=== PATIENT | male | born 1965 | race Caucasian/White ===

== ENCOUNTER 2021-02-01 09:53 | Inpatient (IN) | payer OTHER, SELFPAY ==
[2021-02-01] VITALS (22 sets, daily range): BP systolic 115–134; BP diastolic 77–103; PULSE 86–103; RESP 18–31; TEMP 36.2–36.9; O2SAT 88–100; BMI 16.7
--- NOTE | ~2021-02-01 | XR_ITS ---
EXAMINATION: XR chest 1V portable DATE: 02/04/2021 05:31 INDICATION: Shortness of breath. TECHNIQUE: A single frontal view of the chest was obtained. COMPARISON: Chest 2 views 02/01/2021, CT abdomen and pelvis 05/31/2018 FINDINGS: The lungs are hyperexpanded, consistent with emphysema. No pleural effusion or pneumothorax . The heart size is normal. IMPRESSION: 1. Emphysema. Reviewed, dictated and finalized at location A. IMPRESSION: 1. Emphysema.
--- NOTE | ~2021-02-01 | XR_ITS ---
EXAMINATION: XR chest 2V EXAM DATE: 02/01/2021 10:57 INDICATION: Shortness of breath. TECHNIQUE: Frontal and lateral projections of the chest obtained and reviewed. Comparison is made to prior examination from 03/07/2019. FINDINGS: The lungs are hyperinflated which can be seen with chronic obstructive pulmonary disease ( a clinical diagnosis of functional impairment), but is not diagnostic of it. No confluent consolidati on, pneumothorax or pleural effusion suspected. Narrow cardiac silhouette from the hyperinflated lung s. There are no osseous abnormalities identified. IMPRESSION: Hyperinflation. Reviewed, dictated and finalized at location A. IMPRESSION: Hyperinflation.
--- NOTE | 2021-02-01 10:03 | ECG_ITS ---
Measurements Intervals [place] Rate: 93 P: 78 TX: 135 QRS: 77 QRSD: 97 T: 61 QT: 363 QTc: 453 Interpretive Statements SINUS RHYTHM WITH SINUS ARRHYTHMIA BASELINE ARTIFACT- I, II, III NORMAL ECG Electronically Signed On 02-01-2021 13:09:14 CDT by Ever Kent D.O.
[2021-02-01 10:13] LABS: Basophils Percent Auto 0.2 % (0.2-1.2); Eosinophils Absolute Auto 0.1 K/mm3 (0-0.3); Eosinophils Percent Auto 0.5 % (0-4.4); Hematocrit 44.3 % (42.0-52.0); Hemoglobin 14.4 g/dL (14.0-18.0); Immature Granulocyte Absolute 0.05 K/mm3 (0.00-0.031); Immature Granulocyte Percent A 0.4 % (0-0.5); Lymphocytes Absolute Auto 1.11 K/mm3 (0.9-3.2); Lymphocytes Percent Auto 8.4 % (18.3-44.2); Mean Corpuscular HGB Conc 32.5 g/dl (32-36); Mean Corpuscular Hemoglobin 30.9 pg (26-34); Mean Corpuscular Volume 95.1 fl (80-100); Mean Platelet Volume 9.6 fl (7.4-10.4); Monocytes Percent Auto 7.8 % (2.6-8.5); Neutrophils Percent Auto 82.7 % (45.5-73.1); Platelet Count Result 303 k/mm3 (150-375); Red Blood Count 4.66 M/mm3 (4.6-6.20); Red Cell Distribution Width 11.7 % (11.5-14.5); White Blood Count 13.3 K/mm3 (4.5-10.0)
[2021-02-01 10:23] LABS: Blood Urea Nitrogen 10 mg/dL (9-20); Calcium 9.3 mg/dL (8.4-10.2); Carbon Dioxide > 40 mmol/L (22-30); Chloride 92 mmol/L (98-107); Estimated CRCL calculation 102 ml/min; Estimated Glomerular Filt Rate > 60; Glucose 126 mg/dL (75-110); Sodium 136 mmol/L (137-145)
[2021-02-01] MEDS: IPRATROPIUM BR 0.02% INH SOLN 0.5 MG/2.5 ML VIAL 1 MG INHALATION (10:25)
[2021-02-01] MEDS: ALBUTEROL SULFATE NEB 2.5 MG/0.5 ML INH 20 MG INHALATION (10:25)
[2021-02-01 10:32] LABS: Alveolar/Arterial O2 Gradient 31.1 mmHg; Base Excess ABG 5.6 mEq/l (+/-2.0); Carboxyhemoglobin 1.3 % THb (0-2.0); Fractional Inspired Oxygen 21 %; HCO3 ABG 31.5 mEq/l (22.0-26.0); Methemoglobin ABG 0.2 %THb (0-1.5); Oxygen Content ABG 18.1 %vol (16.0-22.0); Oxygen Saturation ABG 90.2 % (95.0-100.0); Oxyhemoglobin 88.9 % THb (90.0-100.0); PCO2 ABG 50.5 mmHg (35.0-45.0); PO2 ABG 58.2 mmHg (80.0-100.0); PO2 FiO2 Ratio Arterial Blood 2.77 %; Reduced Hemoglobin 9.6 %THb (0-5.0); Total Hemoglobin 14.5 g/dL (12.0-18.0); pH ABG 7.413 (7.350-7.450)
[2021-02-01 10:33] LABS: Device ROOM AIR; Site Drawn RIGHT BRACHIAL
--- NOTE | 2021-02-01 10:47 | ED.GENADULT ---
HPI - General Adult General Chief complaint: Shortness of Breath/Dyspnea <RAMA Singh Last Filed: 02/01/21 12:02> Stated complaint: shortness of breath <RAMA Singh Last Filed: 02/01/21 12:02> Time Seen by Provider: 02/01/21 09:57 <RAMA Singh Last Filed: 02/01/21 12:02> Source: patient and RN notes reviewed <RAMA Singh Last Filed: 02/01/21 12:02> Mode of arrival: ambulatory <RAMA Singh Last Filed: 02/01/21 12:02> Limitations: no limitations <RAMA Singh Last Filed: 02/01/21 12:02> History of Present Illness HPI narrative: Patient is a 55-year-old male who presents with shortness of breath that has been present now for the last 2 weeks and has worsened in the last 2 days patient notes history of COPD with his only medication as a rescue inhaler has not seen his primary care doctor in over a year patient notes that he has been working at his house doing some renovating and believes he may have got exposed to some allergens. Patient with longstanding history of tobacco abuse. Patient notes he has fatigue and weakness with activity and becomes very short of breath quickly. Patient on arrival to emergency department is nontoxic-appearing does present hypoxic with an O2 saturation of 88% on room air. Patient notes he has had similar occurrences in the past related to his COPD. Patient notes he has had some green phlegm over the last 2 days but denies other URI symptoms <RAMA Singh Last Filed: 02/01/21 12:02> Related Data Allergies/adverse reactions: Allergies Allergy/AdvReac Type Severity Reaction Status Date / Time No Known Allergies Allergy Unverified 05/16/19 12:30 <RAMA Singh Last Filed: 02/01/21 12:02> Review of Systems Review of Systems: All systems reviewed & are unremarkable except as noted in HPI and below <RAMA Singh Last Filed: 02/01/21 12:02> [facility] Past Medical History Medical History: Medical History (Updated 02/01/21 @ 12:02 by Isaias Solitario PA-C) COPD (chronic obstructive pulmonary disease) <Isaias Solitario PA-C - Last Filed: 02/01/21 12:02> Family History Family History: Family History (Updated 02/07/17 @ 11:36 by DOCTOR UNKNOWN) Mother Diabetes mellitus Patient's mother is in good health Father Patient's father is in good health Sibling Patient's sister is in good health <Isaias Solitario PA-C - Last Filed: 02/01/21 12:02> Social History Social History: Social History (Updated 02/01/21 @ 11:22 by Isaias Solitario PA-C) Smoking status: Current every day smoker Smoking end date: 09/17/15 Alcohol intake: current <Isaias Solitario PA-C - Last Filed: 02/01/21 12:02> Exam Narrative: Exam Narrative: GENERAL: Well-appearing, well-nourished, and in no acute distress. HEAD: Normocephalic, atraumatic. EYES: PERRLA and EOMI. ENT: Nares clear, no rhinorrhea or epistaxis. Mucous membranes moist. CHEST: Diminished on auscultation. No respiratory distress. Faint wheezing noted no crackles HEART: Regular rate and rhythm. No murmur heard. Normal peripheral pulses. ABDOMEN: Soft, nontender, nondistended EXTREMITIES: Normal range of motion. No edema. SKIN: Warm, dry, no rash. NEURO: No focal deficits. Alert and oriented x3. Cranial nerves II through XII grossly intact PSYCH: Normal mood and affect. <Isaias Solitario PA-C - Last Filed: 02/01/21 12:02> Course Course Emergency Course: Patient presented with COPD exacerbation patient with no pneumonia seen on exam patient was given continuous updraft treatment is resting in the room denying any pain he still is around 92% on 2 L nasal cannula. Patient will be brought into the hospital for COPD exacerbation has been given steroids and IV antibiotics per recommendation and request of hospitalist service who will be managing the patient. Annalise
[2021-02-01 10:54] LABS: Lactic Acid Reflex 1.1 mmol/L (0.7-2.1)
[2021-02-01] MEDS: MAGNESIUM SULF 2 GM/WATER 50ML 2 GM/50 ML BAG IVPB (10:58)
[2021-02-01] MEDS: methylPREDNISolone SOD SUCC 125 MG VIAL 80 MG IV PUSH ×2 (11:32→11:40)
[2021-02-01 12:06] LABS: Alveolar/Arterial O2 Gradient 66.4 mmHg; Base Excess ABG 5.2 mEq/l (+/-2.0); Carboxyhemoglobin 0.9 % THb (0-2.0); Fractional Inspired Oxygen 28 %; HCO3 ABG 32.1 mEq/l (22.0-26.0); Methemoglobin ABG 0.3 %THb (0-1.5); Modified Allen's Test Pass; Oxygen Content ABG 17.9 %vol (16.0-22.0); Oxygen Saturation ABG 92.2 % (95.0-100.0); Oxyhemoglobin 91.4 % THb (90.0-100.0); PCO2 ABG 56.7 mmHg (35.0-45.0); PO2 ABG 66.3 mmHg (80.0-100.0); PO2 FiO2 Ratio Arterial Blood 2.37 %; Reduced Hemoglobin 7.4 %THb (0-5.0); Site Drawn LEFT RADIAL; Total Hemoglobin 13.9 g/dL (12.0-18.0); pH ABG 7.371 (7.350-7.450)
[2021-02-01 12:07] LABS: Device NASAL CANNULA
--- NOTE | 2021-02-01 13:44 | ADMIMU ---
This patient, Nelson Graff, was admitted to IMU status, and placed in Intensive Care Unit-11. Patient/family oriented to hospital policies and general routines including ID bracelet, bed and alarms, visiting hours, pain management, procedures, bathroom and other care routines, personal items, smoking policy, room service/diet, and visiting hours. Valuables list has been completed. Information on how to activate the Rapid Response Team has been discussed. Patient/Family are encouraged to report perceived risks to care and to ask questions if they do not understand what they are told or what they should do.
[2021-02-01] MEDS: LACTATED RINGERS 1,000 ML 80 ML IV CONT (13:52)
--- NOTE | 2021-02-01 15:00 | PM.IMHP ---
H&P: HPI History of Present Illness Date/Time: 02/01/21 15:00 Chief Complaint: Shortness of breath. Narrative: This is a 55-year-old male with asthma, bronchitis, and history of tobacco abuse who presented to the emergency department earlier today via private vehicle from home with complaints of shortness of breath. Over the past year or so he has noticed increasing shortness of breath and has heavily cut back on his smoking and has stop smoking marijuana altogether. His shortness of breath has gotten worse over the last 2 weeks and for the past 2 days he has hardly been able to do any activity, and is getting short of breath even when moving around in a chair. He has a chronic cough but it has since become productive of greenish-yellow sputum. On arrival his SpO2 was 88% on room air and an ABG revealed mild hypoxemia and hypercarbia. Chest x-ray showed hyperinflation is noted that pulmonary function testing in April 2017 demonstrated findings of obstructive lung disease with good bronchodilator response. He reports feeling somewhat better with systemic steroids and nebulizers. With further questioning he has been living in his father's old house and has been trying to remodel that due to the presence of mold. He has been using just a generalized face mask when working in the home and he is wondering if that may be causing issues. He denies fever, chills, sweats, chest pain, pleuritic pain, orthopnea, PND, lower extremity edema, nausea, vomiting, and diarrhea. Review of Systems Review of Systems: Narrative: Twelve systems were reviewed with pertinent positives and negatives as per HPI. No cold or flu symptoms. He denies known exposure to those positive for COVID-19. He has not been vaccinated for COVID. No history of cardiac disease. He denies dysphagia and concerns for aspiration. Weight has remained stable. Except as documented, all other systems were reviewed and are negative. [facility] Past Medical History Medical History (Updated 02/01/21 @ 23:21 by Vaishnavi Mock PA-C) Asthma Chronic obstructive pulmonary disease Methamphetamine use Tobacco abuse Surgical History Surgical History History of tonsillectomy Family History Family History Mother Diabetes mellitus Patient's mother is in good health Cerebrovascular accident Father Patient's father is in good health Dementia Sibling Patient's sister is in good health Social History Social History (Updated 02/01/21 @ 23:19 by Vaishnavi Mock PA-C) Social History: The patient lives in his father's old home in [place]. He smoked up to a pack of cigarettes per day for about 40 years and is now down to a pack a week. Formally smoked marijuana. On occasion he will snort methamphetamines and lasted so several days ago ?to keep myself motivated.? He drinks 15 cans of beer a week. He designates his sister, Madison Messina, as his surrogate decision maker. He wishes to be a full code. Meds Home Medications and Allergies Home Medications Medication Instructions Recorded Confirmed Type albuterol sulfate 1 - 2 puff INHALATION Q4H PRN 02/01/21 02/01/21 History Allergies Allergy/AdvReac Type Severity Reaction Status Date / Time No Known Allergies Allergy Unverified 05/16/19 12:30 Vital Signs Vital Signs - 24 hr 02/01/21 09:59 02/01/21 10:02 02/01/21 10:03 Temperature 98.0 F Pulse Rate 98 103 H Respiratory Rate 24 H Blood Pressure 131/103 H Pulse Oximetry 88 L 97 02/01/21 10:25 02/01/21 10:35 02/01/21 11:23 Temperature Pulse Rate 97 90 93 Respiratory Rate 20 27 H 24 H Blood Pressure 127/84 Pulse Oximetry 100 02/01/21 11:42 02/01/21 12:04 02/01/21 12:50 Temperature Pulse Rate 102 H 101 H 91 Respiratory Rate 26 H 19 22 H Blood Pressure 128/82 115/77 133/84 Pulse Oximetry 88 L 98 96
[2021-02-01] MEDS: IPRATROPIUM BR 0.02% INH SOLN 0.5 MG/2.5 ML VIAL INHALATION ×2 (15:10→20:16)
[2021-02-01] MEDS: ALBUTEROL SULFATE NEB 2.5 MG/0.5 ML INH 5 MG INHALATION ×2 (15:10→20:16)
[2021-02-01 15:20] LABS: Alanine Aminotransferase 19 U/L (4-50); Albumin Level 3.9 g/dL (3.5-5.1); Alkaline Phosphatase 102 U/L (38-126); Aspartate Amino Transferase 20 U/L (17-59); Bilirubin,Total 0.1 mg/dL (0.2-1.3); Magnesium 2.5 mg/dL (1.6-2.3)
[2021-02-01 15:26] LABS: CRP 26.1 mg/dL (<1.0)
[2021-02-01 15:28] LABS: Procalcitonin 0.1 ng/mL
[2021-02-01] MEDS: guaiFENesin 12 HR 600 MG TABCR PO ×2 (16:32→21:25)
[2021-02-01] MEDS: methylPREDNISolone SOD SUCC 125 MG VIAL 60 MG IV PUSH (17:45)
[2021-02-01 20:07] LABS: SARS-CoV-2 RNA PCR Negative
[2021-02-01 21:18] LABS: Hemoglobin A1C 6.5 % (<5.7)
[2021-02-02] VITALS (20 sets, daily range): BP systolic 120–151; BP diastolic 64–87; PULSE 88–122; RESP 18–22; TEMP 36.4–37.1; O2SAT 91–96; BMI 16.5
[2021-02-02] MEDS: methylPREDNISolone SOD SUCC 125 MG VIAL 60 MG IV PUSH ×4 (00:03→20:47)
[2021-02-02] MEDS: LACTATED RINGERS 1,000 ML 80 ML IV CONT ×2 (00:04→13:38)
[2021-02-02] MEDS: IPRATROPIUM BR 0.02% INH SOLN 0.5 MG/2.5 ML VIAL INHALATION ×4 (01:37→19:59)
[2021-02-02] MEDS: ALBUTEROL SULFATE NEB 2.5 MG/0.5 ML INH 5 MG INHALATION ×4 (01:37→19:59)
--- NOTE | 2021-02-02 02:20 | PC.NURSE ---
0201 Report called to YESSY Wilson.
--- NOTE | 2021-02-02 02:20 | PC.NURSE ---
0215 Transferred to IMU room 202 with all belongings.
--- NOTE | 2021-02-02 02:34 | PC.NURSE ---
This patient, Nelson Graff, was received from ICU-11 on 02/02/21 at 0234. Pt and belongings placed in IMU room 202. Patient/family oriented to unit policies and routines
[2021-02-02 05:29] LABS: Hemoglobin 12.7 g/dL (14.0-18.0); Mean Corpuscular HGB Conc 33.4 g/dl (32-36); Mean Corpuscular Hemoglobin 30.8 pg (26-34); Mean Corpuscular Volume 92.2 fl (80-100); Mean Platelet Volume 9.9 fl (7.4-10.4); Platelet Count Result 312 k/mm3 (150-375); Red Blood Count 4.12 M/mm3 (4.6-6.20); Red Cell Distribution Width 11.8 % (11.5-14.5); White Blood Count 13.8 K/mm3 (4.5-10.0)
[2021-02-02 05:41] LABS: Anion Gap 5 mmol/L (8-16); Blood Urea Nitrogen 9 mg/dL (9-20); Calcium 9.2 mg/dL (8.4-10.2); Carbon Dioxide 35 mmol/L (22-30); Chloride 96 mmol/L (98-107); Estimated CRCL calculation 79 ml/min; Estimated Glomerular Filt Rate > 60; Glucose 175 mg/dL (75-110); Potassium 3.7 mmol/L (3.4-5.0); Sodium 136 mmol/L (137-145)
[2021-02-02] MEDS: guaiFENesin 12 HR 600 MG TABCR PO ×2 (09:42→20:41)
[2021-02-02] MEDS: ENOXAPARIN 40 MG/0.4 ML SYRINGE SUB-Q (09:42)
--- NOTE | 2021-02-02 12:17 | PCNSR ---
On 02/02/21, the student, Vivi Lopez, provided care and completed [facility] documentation on this patient. I have reviewed the student's documentation and agree with the findings.
--- NOTE | 2021-02-02 13:50 | PM.IMPN ---
Progress Note: A&P Assessment and Plan (1) Acute exacerbation of chronic obstructive pulmonary disease: Code(s): J44.1 - Chronic obstructive pulmonary disease with (acute) exacerbation Status: Acute Assessment and Plan: Patient is a smoker WBC elevated at 13.8 Increased in sputum production Chest xray shows hyperinflation Doxycycline 100mg Q12hr Solumedrol 60mg IV Q6hr Neb treatments Mucinex 600mg PO Q12hr Symbicort 2 puff Q12hr Trend WBC Sputum and blood cultures pending. Adjust antibiotics as needed Supplemental oxygen Maintain saturations above 88% Ok to move out of IMU (2) Respiratory failure with hypoxia and hypercapnia: Code(s): J96.91 - Respiratory failure, unspecified with hypoxia; J96.92 - Respiratory failure, unspecified with hypercapnia Status: Acute Assessment and Plan: See above (3) Asthma: Qualifiers: Asthma severity: unspecified severity Asthma persistence: persistent Asthma complication type: uncomplicated Qualified Code(s): J45.909 - Unspecified asthma, uncomplicated Code(s): J45.909 - Unspecified asthma, uncomplicated Status: Acute Assessment and Plan: Patient has history of asthma Follow plan above (4) Tobacco abuse: Code(s): Z72.0 - Tobacco use Status: Acute Assessment and Plan: Educated about smoking cessation Patient confirms only smoking 1 Pack per week (5) Malnutrition: Code(s): E46 - Unspecified protein-calorie malnutrition Status: Acute Assessment and Plan: BMI 16.6 Patient is very underweight Supplements ordered. Educate about calorie intake Log Data Technician consult Subjective Date/time seen: 02/02/21 13:50 Patient is a 55-year-old male with past medical history of asthma bronchitis and tobacco use who presented to the emergency department with complaints of shortness of breath. Patient states that he has a chronic cough that can cause him to become lightheaded and short of breath. Patient stated that he has been more short of breath over the last 2 weeks that his cough is getting worse he stated that his cough is productive and his sputum is clear about 3-4 days ago today it is more greenish yellow patient does admit to chronic use of halls cough drops with no relief. Patient also is rehabbing his mother and father's home which some rooms to have mold in, however, he states that he is not in those rooms and that he sleeps in his recliner in the living room. He stated that he is unable to lay flat due to coughing fits. He did express interest in home O2 I explained to him he may need a walk test to evaluate his need for home O2 currently he was on 1 L of oxygen. He also states that he has been using his rescue inhaler more and more lately. He also complains of severe shortness of breath with exertion. Patient denies chest pain abdominal pain, nausea, vomiting, diarrhea, constipation, numbness tingling, weakness, fatigue, syncope or falls. Patient does admit to being his everyday smoker he stated that he has cut back tremendously and smokes about 1 pack per week. Which he says is even less because he will not smoke the whole cigarette. patient also states that he has cut back on drinking as well and has about 1 case of beer per week. plan of care was explained to the patient patient verbalizes understanding all questions were answered. Review of Systems Review of Systems: All systems reviewed & are unremarkable except as noted in HPI and below Exam Const: General: cooperative, healthy appearing, comfortable, no acute distress, well developed, alert, awake and Physically active Nutritional Appearance: malnourished, thin and underweight Orientation/consciousness: patient oriented x3 Limitations: no limitations HENMT: Head: normal to inspection Ears: hearing grossly normal bilaterally and external ears
--- NOTE | 2021-02-02 16:36 | ADMGEN ---
This patient, Nelson Graff, was admitted to 3 [facility] Surg Room 312-01. Patient/family oriented to hospital policies and general routines including ID bracelet, bed and alarms, visiting hours, pain management, procedures, bathroom and other care routines, personal items, smoking policy, room service/diet, and visiting hours. Information on how to activate the Rapid Response Team has been discussed. Patient/Family are encouraged to report perceived risks to care and to ask questions if they do not understand what they are told or what they should do.
[2021-02-03] VITALS (17 sets, daily range): BP systolic 126–137; BP diastolic 75–81; PULSE 67–124; RESP 16–96; TEMP 36.6–37.4; O2SAT 20–96
[2021-02-03] MEDS: methylPREDNISolone SOD SUCC 125 MG VIAL 60 MG IV PUSH ×2 (00:21→06:01)
[2021-02-03] MEDS: IPRATROPIUM BR 0.02% INH SOLN 0.5 MG/2.5 ML VIAL INHALATION ×4 (02:02→20:20)
[2021-02-03] MEDS: ALBUTEROL SULFATE NEB 2.5 MG/0.5 ML INH 5 MG INHALATION ×2 (02:02→07:56)
[2021-02-03 06:29] LABS: Hematocrit 40.3 % (42.0-52.0); Mean Corpuscular HGB Conc 32.3 g/dl (32-36); Mean Corpuscular Hemoglobin 31.3 pg (26-34); Mean Corpuscular Volume 97.1 fl (80-100); Mean Platelet Volume 9.7 fl (7.4-10.4); Platelet Count Result 354 k/mm3 (150-375); Red Blood Count 4.15 M/mm3 (4.6-6.20); White Blood Count 22.6 K/mm3 (4.5-10.0)
[2021-02-03 06:41] LABS: Anion Gap 6 mmol/L (8-16); Blood Urea Nitrogen 11 mg/dL (9-20); Calcium 8.9 mg/dL (8.4-10.2); Carbon Dioxide 34 mmol/L (22-30); Chloride 99 mmol/L (98-107); Estimated CRCL calculation 109 ml/min; Estimated Glomerular Filt Rate > 60; Glucose 145 mg/dL (75-110); Potassium 3.9 mmol/L (3.4-5.0); Sodium 139 mmol/L (137-145)
[2021-02-03] MEDS: guaiFENesin 12 HR 600 MG TABCR PO ×2 (09:46→21:28)
[2021-02-03] MEDS: ENOXAPARIN 40 MG/0.4 ML SYRINGE SUB-Q (09:47)
--- NOTE | 2021-02-03 10:46 | P.PNIM_ITS ---
Progress Note: A&P Assessment and Plan (1) Acute exacerbation of chronic obstructive pulmonary disease: Code(s): J44.1 - Chronic obstructive pulmonary disease with (acute) exacerbation Status: Acute Assessment and Plan: * Patient is a smoker * WBC elevated: went from 13.8 to 22.6 * sputum production better today * Chest xray shows hyperinflation * Doxycycline 100mg Q12hr changed to Ceftriaxone 2g IV q12hr * taper Solumedrol to prednisone 40mg PO Q8hr * Neb treatments change albuterol to Xopenex * Mucinex 600mg PO Q12hr * Symbicort 2 puff Q12hr * Trend WBC * Sputum culture shows haemophilus influenzae and blood cultures show no growth day 2. * Adjust antibiotics as needed * Supplemental oxygen * Maintain saturations above 88% (2) Community acquired bacterial pneumonia: Code(s): J15.9 - Unspecified bacterial pneumonia Status: Acute Assessment and Plan: * See plan above (3) Respiratory failure with hypoxia and hypercapnia: Qualifiers: Chronicity: acute Qualified Code(s): J96.01 - Acute respiratory failure with hypoxia; J96.02 - Acute respiratory failure with hypercapnia Code(s): J96.91 - Respiratory failure, unspecified with hypoxia; J96.92 - Respiratory failure, unspecified with hypercapnia Status: Acute Assessment and Plan: * See above (4) Asthma: Qualifiers: Asthma complication type: uncomplicated Asthma persistence: persistent Asthma severity: unspecified severity Qualified Code(s): J45.909 - Unspecified asthma, uncomplicated Code(s): J45.909 - Unspecified asthma, uncomplicated Status: Acute Assessment and Plan: * Patient has history of asthma * Follow plan above (5) Tobacco abuse: Code(s): Z72.0 - Tobacco use Status: Acute Assessment and Plan: * Educated about smoking cessation * Patient confirms only smoking 1 Pack per week (6) Malnutrition: Qualifiers: Malnutrition type: unspecified type Qualified Code(s): E46 - Unspecified protein-calorie malnutrition Code(s): E46 - Unspecified protein-calorie malnutrition Status: Acute Assessment and Plan: * BMI 16.6 * Patient is very underweight * Supplements ordered. * Educate about calorie intake * Automatic Centrifugal Station Operator consult (7) Tachycardia: Code(s): R00.0 - Tachycardia, unspecified Status: Acute Assessment and Plan: * Heart rate is 130-140 per the monitor * Change albuterol to Xopenex * Trend heart rate * Trend fevers Subjective Date/time seen: 02/03/21 10:46 Patient is a 55-year-old male with past medical history of asthma bronchitis an d tobacco use who presented to the emergency department with complaints of shortness of breath. Patient stated that he feels a whole lot better today when asked about his cough he said he did have A cough. He did state that when he lays flat he will cough and is still producing thick greenish yellow thick sputum. Patient also states he has no complaints of shortness of breath. He has been off supplemental oxygen since yesterday at 3:00 p.m. He also states that he still gets short of breath with some physical activity. Patient denies chest pain abdominal pain, nausea, vomiting, diarrhea, constipation, numbness tingling, weakness, fatigue, syncope or falls. patient expressed interest in possible discha
--- NOTE | 2021-02-03 10:46 | PM.IMPN ---
Progress Note: A&P Assessment and Plan (1) Acute exacerbation of chronic obstructive pulmonary disease: Code(s): J44.1 - Chronic obstructive pulmonary disease with (acute) exacerbation Status: Acute Assessment and Plan: Patient is a smoker WBC elevated: went from 13.8 to 22.6 sputum production better today Chest xray shows hyperinflation Doxycycline 100mg Q12hr changed to Ceftriaxone 2g IV q12hr taper Solumedrol to prednisone 40mg PO Q8hr Neb treatments change albuterol to Xopenex Mucinex 600mg PO Q12hr Symbicort 2 puff Q12hr Trend WBC Sputum culture shows haemophilus influenzae and blood cultures show no growth day 2. Adjust antibiotics as needed Supplemental oxygen Maintain saturations above 88% (2) Community acquired bacterial pneumonia: Code(s): J15.9 - Unspecified bacterial pneumonia Status: Acute Assessment and Plan: See plan above (3) Respiratory failure with hypoxia and hypercapnia: Qualifiers: Chronicity: acute Qualified Code(s): J96.01 - Acute respiratory failure with hypoxia; J96.02 - Acute respiratory failure with hypercapnia Code(s): J96.91 - Respiratory failure, unspecified with hypoxia; J96.92 - Respiratory failure, unspecified with hypercapnia Status: Acute Assessment and Plan: See above (4) Asthma: Qualifiers: Asthma complication type: uncomplicated Asthma persistence: persistent Asthma severity: unspecified severity Qualified Code(s): J45.909 - Unspecified asthma, uncomplicated Code(s): J45.909 - Unspecified asthma, uncomplicated Status: Acute Assessment and Plan: Patient has history of asthma Follow plan above (5) Tobacco abuse: Code(s): Z72.0 - Tobacco use Status: Acute Assessment and Plan: Educated about smoking cessation Patient confirms only smoking 1 Pack per week (6) Malnutrition: Qualifiers: Malnutrition type: unspecified type Qualified Code(s): E46 - Unspecified protein-calorie malnutrition Code(s): E46 - Unspecified protein-calorie malnutrition Status: Acute Assessment and Plan: BMI 16.6 Patient is very underweight Supplements ordered. Educate about calorie intake Home Health Care Physician consult (7) Tachycardia: Code(s): R00.0 - Tachycardia, unspecified Status: Acute Assessment and Plan: Heart rate is 130-140 per the monitor Change albuterol to Xopenex Trend heart rate Trend fevers Subjective Date/time seen: 02/03/21 10:46 Patient is a 55-year-old male with past medical history of asthma bronchitis and tobacco use who presented to the emergency department with complaints of shortness of breath. Patient stated that he feels a whole lot better today when asked about his cough he said he did have A cough. He did state that when he lays flat he will cough and is still producing thick greenish yellow thick sputum. Patient also states he has no complaints of shortness of breath. He has been off supplemental oxygen since yesterday at 3:00 p.m. He also states that he still gets short of breath with some physical activity. Patient denies chest pain abdominal pain, nausea, vomiting, diarrhea, constipation, numbness tingling, weakness, fatigue, syncope or falls. patient expressed interest in possible discharge. Explained to patient that he is still on high dose of IV steroids and is currently receiving IV antibiotics. Will reassess him in the morning for possibility of discharge however antibiotics to be converted to p.o. and steroids need to be decreased. Heart monitor does show patient in the 130s 140s. Pulses are bounding bilaterally and palpable heart rate was calculated to be around 100. white blood cell count went from 13.8-22.6 overnight. Sputum culture show haemophilus influenzae, changed antibiotics from doxycylin
[2021-02-03] MEDS: predniSONE 20 MG TABLET 40 MG PO ×2 (14:44→21:28)
[2021-02-03] MEDS: ACETAMINOPHEN 325 MG TABLET 650 MG PO (21:33)
[2021-02-04] VITALS (9 sets, daily range): BP systolic 134; BP diastolic 84; PULSE 90–117; RESP 18–20; TEMP 36.8; O2SAT 97–98
[2021-02-04] MEDS: IPRATROPIUM BR 0.02% INH SOLN 0.5 MG/2.5 ML VIAL INHALATION ×2 (02:32→08:05)
[2021-02-04] MEDS: predniSONE 20 MG TABLET 40 MG PO (06:06)
[2021-02-04] MEDS: ACETAMINOPHEN 325 MG TABLET 650 MG PO (06:09)
[2021-02-04 06:35] LABS: Hematocrit 40.9 % (42.0-52.0); Hemoglobin 12.9 g/dL (14.0-18.0); Mean Corpuscular HGB Conc 31.5 g/dl (32-36); Mean Corpuscular Hemoglobin 30.7 pg (26-34); Mean Corpuscular Volume 97.4 fl (80-100); Mean Platelet Volume 9.5 fl (7.4-10.4); Platelet Count Result 347 k/mm3 (150-375); Red Cell Distribution Width 12.2 % (11.5-14.5); White Blood Count 19.3 K/mm3 (4.5-10.0)
[2021-02-04 06:45] LABS: Anion Gap 6 mmol/L (8-16); Blood Urea Nitrogen 11 mg/dL (9-20); Calcium 8.9 mg/dL (8.4-10.2); Carbon Dioxide 34 mmol/L (22-30); Chloride 99 mmol/L (98-107); Estimated CRCL calculation 88 ml/min; Estimated Glomerular Filt Rate > 60; Glucose 119 mg/dL (75-110); Potassium 4.1 mmol/L (3.4-5.0); Sodium 139 mmol/L (137-145)
[2021-02-04] MEDS: ENOXAPARIN 40 MG/0.4 ML SYRINGE SUB-Q (08:50)
[2021-02-04] MEDS: guaiFENesin 12 HR 600 MG TABCR PO (08:51)
--- NOTE | 2021-02-04 10:19 | P.DS_ITS ---
DS: Admitting Diagnosis Admitting Diagnosis Admitting Diagnosis: COPD exacerbation Community acquired pneumonia DS: Discharge Diagnosis Discharge Diagnosis (1) Acute exacerbation of chronic obstructive pulmonary disease: Code(s): J44.1 - Chronic obstructive pulmonary disease with (acute) exacerbation Status: Acute Assessment and Plan: * Patient is a smoker * WBC trending down went from 22.6 to 19.3 * sputum production better today * Chest xray shows Emphysema * Ceftriaxone 2g IV q12hr given this am will send patient home on Amoxicillin clavulanic and azithromycin * taper Solumedrol to prednisone 40mg PO Q8hr will send home with a taper pack * Neb treatments change albuterol to Xopenex, will send with albuterol inhaler * Mucinex 600mg PO Q12hr * Symbicort 2 puff Q12hr * Trend WBC * Sputum culture shows haemophilus influenzae and blood cultures show no growth day 2. * Adjust antibiotics as needed * Supplemental oxygen * Maintain saturations above 88% (2) Community acquired bacterial pneumonia: Code(s): J15.9 - Unspecified bacterial pneumonia Status: Acute Assessment and Plan: * See plan above (3) Respiratory failure with hypoxia and hypercapnia: Qualifiers: Chronicity: acute Qualified Code(s): J96.01 - Acute respiratory failure with hypoxia; J96.02 - Acute respiratory failure with hypercapnia Code(s): J96.91 - Respiratory failure, unspecified with hypoxia; J96.92 - Respiratory failure, unspecified with hypercapnia Status: Acute Assessment and Plan: * See above (4) Asthma: Qualifiers: Asthma complication type: uncomplicated Asthma persistence: persistent Asthma severity: unspecified severity Qualified Code(s): J45.909 - Unspecified asthma, uncomplicated Code(s): J45.909 - Unspecified asthma, uncomplicated Status: Acute Assessment and Plan: * Patient has history of asthma * Follow plan above (5) Tobacco abuse: Code(s): Z72.0 - Tobacco use Status: Acute Assessment and Plan: * Educated about smoking cessation * Patient confirms only smoking 1 Pack per week (6) Malnutrition: Qualifiers: Malnutrition type: unspecified type Qualified Code(s): E46 - Unspecifi ed protein-calorie malnutrition Code(s): E46 - Unspecified protein-calorie malnutrition Status: Acute Assessment and Plan: * BMI 16.6 * Patient is very underweight * Supplements ordered. * Educate about calorie intake * Mounted Police Officer consult (7) Tachycardia: Code(s): R00.0 - Tachycardia, unspecified Status: Acute Assessment and Plan: * Heart rate better at 100-105 * Change albuterol to Xopenex * Trend heart rate * Trend fevers DS: Summary Hospital Course Hospital Course: Patient is a 55-year-old male with past medical history of asthma bronchitis and tobacco use who presented to the emergency department with complaints of shortness of breath. Patient was then brought to the IMU with thoughts needing more oxygen. Patient was also started on doxycycline steroids and neb treatments. Antibiotics have been switched to ceftriaxone. Patient has been on room air for the last 48 hours states his cough is better and breathing is better. Patient states that he is anxious to get home and he still gets short of breath with exer
--- NOTE | 2021-02-04 10:19 | PM.DS ---
DS: Admitting Diagnosis Admitting Diagnosis Admitting Diagnosis: COPD exacerbation Community acquired pneumonia DS: Discharge Diagnosis Discharge Diagnosis (1) Acute exacerbation of chronic obstructive pulmonary disease: Code(s): J44.1 - Chronic obstructive pulmonary disease with (acute) exacerbation Status: Acute Assessment and Plan: Patient is a smoker WBC trending down went from 22.6 to 19.3 sputum production better today Chest xray shows Emphysema Ceftriaxone 2g IV q12hr given this am will send patient home on Amoxicillin clavulanic and azithromycin taper Solumedrol to prednisone 40mg PO Q8hr will send home with a taper pack Neb treatments change albuterol to Xopenex, will send with albuterol inhaler Mucinex 600mg PO Q12hr Symbicort 2 puff Q12hr Trend WBC Sputum culture shows haemophilus influenzae and blood cultures show no growth day 2. Adjust antibiotics as needed Supplemental oxygen Maintain saturations above 88% (2) Community acquired bacterial pneumonia: Code(s): J15.9 - Unspecified bacterial pneumonia Status: Acute Assessment and Plan: See plan above (3) Respiratory failure with hypoxia and hypercapnia: Qualifiers: Chronicity: acute Qualified Code(s): J96.01 - Acute respiratory failure with hypoxia; J96.02 - Acute respiratory failure with hypercapnia Code(s): J96.91 - Respiratory failure, unspecified with hypoxia; J96.92 - Respiratory failure, unspecified with hypercapnia Status: Acute Assessment and Plan: See above (4) Asthma: Qualifiers: Asthma complication type: uncomplicated Asthma persistence: persistent Asthma severity: unspecified severity Qualified Code(s): J45.909 - Unspecified asthma, uncomplicated Code(s): J45.909 - Unspecified asthma, uncomplicated Status: Acute Assessment and Plan: Patient has history of asthma Follow plan above (5) Tobacco abuse: Code(s): Z72.0 - Tobacco use Status: Acute Assessment and Plan: Educated about smoking cessation Patient confirms only smoking 1 Pack per week (6) Malnutrition: Qualifiers: Malnutrition type: unspecified type Qualified Code(s): E46 - Unspecified protein-calorie malnutrition Code(s): E46 - Unspecified protein-calorie malnutrition Status: Acute Assessment and Plan: BMI 16.6 Patient is very underweight Supplements ordered. Educate about calorie intake Structural Ironworker consult (7) Tachycardia: Code(s): R00.0 - Tachycardia, unspecified Status: Acute Assessment and Plan: Heart rate better at 100-105 Change albuterol to Xopenex Trend heart rate Trend fevers DS: Summary Hospital Course Hospital Course: Patient is a 55-year-old male with past medical history of asthma bronchitis and tobacco use who presented to the emergency department with complaints of shortness of breath. Patient was then brought to the IMU with thoughts needing more oxygen. Patient was also started on doxycycline steroids and neb treatments. Antibiotics have been switched to ceftriaxone. Patient has been on room air for the last 48 hours states his cough is better and breathing is better. Patient states that he is anxious to get home and he still gets short of breath with exertion however claims that to be normal. Heart rate according to the monitor is better at 1:01 a.m. patient is in sinus rhythm blood pressures are stable. patient denies pain however states that he has carpal tunnel issues in bilateral hands. White blood cell count has been as high as 22.6 by this admission however is trending down at 19.3 today. Patient denies chest pain abdominal pain, nausea, vomiting, diarrhea, constipation, numbness tingling, weakness, fatigue, syncope or falls. Educated the patient importance of taking all medications
--- NOTE | 2021-02-04 10:28 | PCNFU ---
Nutrition Follow-Up Complete: Inadequate oral intake related to poor food choices as evidenced by a BMI of 16.6 and patient stating he has recently lost 15lbs without trying. Goal:Patient will consume 100% of his meals and supplements. Patient has met current goal. No new goal. Pt current nutrition is Heart Healthy. Last recorded weight is 53.4 kg, up from 51.1 kg. Bowel Motility:+BM reported 02/03 Labs Reviewed:HCt 40.9,Hgb 12.9,Glu 119 Meds Noted:Mucinex,Prednisone,Atrovent Additional Notes: Patient seen today for nutrition follow up. He is currently on a heart healthy diet with Enlive once daily and Frozen Nutritional Treat BID. Oral Intake has been, 100% of meals. NO further nutritional interventions needed. Monitor: Will follow up in 7 days.
== END 2021-02-04 13:03 | disposition home or self-care (01) | DRG 139 ==
LOC: ANHED 12:02 → ANHICU 12:38 → ANHIMU 02-02 02:22 → ANH3MEDSUR 02-02 16:35
PROVIDERS: Emergency Medicine Emergency Medical Services; Physician Assistant; Admitting Provider Family Medicine; Emergency Provider Emergency Medicine; PCP Family Medicine; Visit Provider Nurse Practitioner
DX: J15.9 Unspecified bacterial pneumonia (principal); J44.0 Chronic obstructive pulmonary disease with (acute) lower respiratory infection; J44.1 Chronic obstructive pulmonary disease with (acute) exacerbation; F15.10 Other stimulant abuse, uncomplicated; Z20.822 Contact with and (suspected) exposure to COVID-19; F17.210 Nicotine dependence, cigarettes, uncomplicated; J96.91 Respiratory failure, unspecified with hypoxia; J96.92 Respiratory failure, unspecified with hypercapnia; E46 Unspecified protein-calorie malnutrition; Z68.1 Body mass index [BMI] 19.9 or less, adult; R00.0 Tachycardia, unspecified
CPT/HCPCS: 36415; 36600; 71045; 71046; 80048; 80076; 82375; 82805; 83036; 83050; 83605; 83735; 84145; 85025; 85027; 86140; 87040; 87070; 87077; 87185; 87205; 93005; 94640; 94667; 96361; 96365; 96366; 96367; 96372; 96374; 96375; 96376; 99291; A9270; C9803; G0378; G0379; J0696; J1650; J2930; J3475; J7120; J7512; U0003; U0005

== ENCOUNTER 2023-03-06 11:10 | Outpatient (CLI) | payer OTHER, SELFPAY ==
--- NOTE | ~2023-03-06 | CT_ITS ---
CT Scan of the Chest without Contrast: Clinical Indication: Lung cancer screening, personal history of nicotine dependence Technique: Contiguous sections were acquired throughout the chest without intravenous contrast. Dose reduction technique was used on this scan by utilizing automated exposure control and iterative recon struction technique. The dose-length product (DLP) was 63.89 mGy-cm. Findings: There is no evidence of any significant mediastinal, hilar or axillary lymphadenopathy. The mediastin al soft tissues appear normal. There is no evidence of pleural or pericardial effusion. 4 mm right upper lobe pulmonary nodule noted (axial image 32). Moderate emphysema noted. Images through the upper abdomen reveal no abnormalities. Impression: Lung RADS 2: Benign appearance. 12 month follow-up screening CT advised. Moderate emphysema. Reviewed, dictated and finalized at location . Impression: Lung RADS 2: Benign appearance. 12 month follow-up screening CT advised. Moderate emphysema.
[2023-03-06 12:30] VITALS: PULSE 88; O2SAT 91
[2023-03-06 12:34] VITALS: PULSE 109; O2SAT 86
[2023-03-06 12:35] VITALS: O2SAT 87
[2023-03-06 12:36] VITALS: PULSE 92; O2SAT 91
[2023-03-06 12:45] VITALS: PULSE 89; O2SAT 91
--- NOTE | 2023-03-06 13:47 | HOMEO2EVAL ---
Evaluation was performed at [facility] Home Oxygen Evaluation RC: Home Oxygen (O2) Evaluation Start: 03/06/23 13:44 Freq: Status: Active Protocol: RPE Activity Type Activity Date Activity User E-sign Co-sign Detail Recorded Client Recorded Date Recorded By Document 03/06/23 12:30 CHUCKIE [email or web address] 03/06/23 13:47 CHUCKIE Document 03/06/23 12:34 CHUCKIE [email or web address] 03/06/23 13:47 CHUCKIE Document 03/06/23 12:35 CHUCKIE [email or web address] 03/06/23 13:47 CHUCKIE Document 03/06/23 12:36 CHUCKIE [email or web address] 03/06/23 13:47 CHUCKIE Document 03/06/23 12:45 CHUCKIE [email or web address] 03/06/23 13:47 CHUCKIE 03/06/23 03/06/23 03/06/23 12:30 12:34 12:35 Home O2 Evaluation [Oxygen] -Test Phase Resting Exercise Exercise -Oxygen Delivery Room Air Room Air Nasal Cannula -Oxygen Flow Rate (L/min) 1 [Pulse Oximetry] -Pulse Oximetry (90-100 %) 91 86 L 87 L [Pulse Rate] -Pulse Rate (60-100 beats/min) 88 109 H [Exercise] -Ambulation Distance (feet) -Ambulation Distance (meters) [Comments] -Home Oxygen Evaluation Comments [Charges] -Treatment Charges O2 Evaluation - Outpatient 03/06/23 03/06/23 12:36 12:45 Home O2 Evaluation [Oxygen] -Test Phase Exercise Resting -Oxygen Delivery Nasal Cannula Room Air -Oxygen Flow Rate (L/min) 2 [Pulse Oximetry] -Pulse Oximetry (90-100 %) 91 91 [Pulse Rate] -Pulse Rate (60-100 beats/min) 92 89 [Exercise] -Ambulation Distance (feet) 1,000 -Ambulation Distance (meters) 304.78 [Comments] -Home Oxygen Evaluation Comments PT REQUIRES 2 L HOME O2 WITH EXERTION [Charges] -Treatment Charges
--- NOTE | 2023-03-06 13:47 | PCRCNOTE ---
FAXED HOME O2 EVAL TO [facility]
--- NOTE | 2023-03-08 17:43 | WPDPFTINT ---
PFT Procedure Performed PFT Procedure Performed Spirometry with Pre/Post Bronchodilator Plethysmography (Lung Vol) Diffusing Cap (DLCO) Flow Vol Loop PFT Interpretation DOS: 03/06/2023 REQUESTING: Mary Muhammad [facility] REASON FOR TESTING: history of smoking PULMONARY FUNCTION TESTS Results are reliable and reproducible. Spirometry: Pre bronchodilator FEV1 is 0.83 L, 30%, severely reduced. Pre bronchodilator FVC is 2.72 L, 78%, low end of normal. FEV1 / FVC is 30%, reduced, Consistent with airflow obstruction. After bronchodilator, FEV1 increases to 1.08 L, 30% increase, post bronchodilator FVc is 39%. This is a significant increase. After bronchodilator FVC increases to 3.36 L, 97% predicted, a 23% increase. The FEV1 / FVC ratio is 32%. Lung volumes: Total lung capacity is 8.45 L, 155%, greater than normal, moderate hyperinflation. Residual volume is 5.63 L, 304% predicted, severe air trapping. RV/TLC is increased 67% consistent with air trapping. Airway resistance is increased. Diffusion: DLCO is 8.4, 31% predicted. This is extremely reduced. DLCO/VA is 2.05, 45%, reduced. Flow volume loop: There is coving of the expiratory limb consistent with airflow obstruction. IMPRESSION: this study shows severe obstructive ventilatory impairment with excellent response to bronchodilator, moderate hyperinflation and severe air trapping, severe diffusion impairment which does not correct for alveolar volume. This is consistent with emphysema. Compared to prior study on 03/27/2017 findings are similar however on the previous study, the patient had normal diffusion capacity. On the prior study the FEV1 was 1.30 L, 41% predicted, indicating a greater than expected decrease in flows since prior testing. The FVC was 2.62 L, 62%, now is 2.72 L, 78%. Airflow obstruction was also present, total lung capacity was 8.30 L 142% predicted showing mild increase in hyperinflation, stable air trapping. Leena Norwood MD
== END 2023-03-06 11:11 | disposition home or self-care (01) ==
PROVIDERS: PCP Nurse Practitioner Family; Visit Provider Nurse Practitioner
DX: Z12.2 Encounter for screening for malignant neoplasm of respiratory organs (principal); J44.9 Chronic obstructive pulmonary disease, unspecified; Z87.891 Personal history of nicotine dependence; R94.2 Abnormal results of pulmonary function studies; J43.9 Emphysema, unspecified
CPT/HCPCS: 71271; 94060; 94618; 94726; 94729

== ENCOUNTER 2024-06-18 05:53 | Observation (INO) | payer OTHER, SELFPAY ==
[2024-06-18] VITALS (24 sets, daily range): BP systolic 122–143; BP diastolic 74–103; PULSE 84–117; RESP 20–29; TEMP 37.3; O2SAT 91–100; BMI 16.7
--- NOTE | ~2024-06-18 | CT_ITS ---
EXAMINATION: CT diagnostic chest wo con DATE: 06/18/2024 10:39 INDICATION: Hypoxia eval pna TECHNIQUE: Computed tomography (CT) of the chest was performed without intravenous contrast. Addition al 3D reconstructions utilizing coronal maximum intensity projection (MIP) were performed. Automated exposure control and iterative reconstruction technique were employed. The dose-length product was 14 7.80 mGy-cm. COMPARISON: None FINDINGS: Moderate emphysema. Multiple small centrilobular nodules with tree-in-bud pattern in the right lower lobe consistent with pneumonia. There is some associated bronchial wall thickening along with mucus i mpaction of the right lower lobar and multiple segmental and subsegmental bronchi. Small region of mi ld tree-in-bud opacities in the anteroinferior lingula most consistent with pneumonia with some assoc iated linear discoid atelectasis. Trace right pleural effusion. Heart size is normal. Atherosclerotic coronary artery calcification. No pericardial effusion. Thoracic aorta is normal in caliber. Likely reactive mild right hilar lymphadenopathy. Multiple splenic calcific lesions consistent with old gran ulomatous disease. 2 mm nonobstructing right renal stone. Moderate thoracic spondylosis with mild kyp hosis. IMPRESSION: 1. Right lower lobar pneumonia and trace right pleural effusion with additional small region of pneum onia in the anterior-inferior lingula. Reviewed, dictated and finalized at location A. IMPRESSION: 1. Right lower lobar pneumonia and trace right pleural effusion with additional small region of pneumonia in the anterior-inferior lingula.
--- NOTE | ~2024-06-18 | XR_ITS ---
EXAMINATION: XR chest 2V DATE: 06/18/2024 07:04 INDICATION: Chest pain, shortness of breath and COPD TECHNIQUE: AP and lateral views of the chest were obtained. COMPARISON: Chest radiograph dated 02/04/[address] dated 03/06/2023 FINDINGS: Emphysema with increased lucency and some architectural distortion in the upper lung zones and increa sed retrosternal clear space. There are reticular and subtle airspace opacities in the posterior righ t lower lung zone no pleural effusion or pneumothorax. The cardiomediastinal silhouette is normal. Mi ld to moderate thoracic spondylosis. IMPRESSION: 1. Emphysema with interstitial and subtle airspace opacities in the posterior right lower lung zone s uspicious for pneumonia with differential including mild pulmonary edema. Reviewed, dictated and finalized at location A. IMPRESSION: 1. Emphysema with interstitial and subtle airspace opacities in the posterior r ight lower lung zone suspicious for pneumonia with differential including mild pulmonary edema.
--- NOTE | 2024-06-18 06:00 | ECG_ITS ---
Test Date: 2024-06-18 08:56:00 Measurements Intervals [place] Rate: 101 P: 77 MD: 130 QRS: 73 QRSD: 100 T: 71 QT: 378 QTc: 492 Interpretive Statements SINUS TACHYCARDIA POSSIBLE RIGHT ATRIAL ENLARGEMENT [0.25mV P WAVE] POSSIBLE LEFT ATRIAL ENLARGEMENT [-0.1mV P WAVE IN V1/V2] ABNORMAL ECG Electronically Signed On 06-18-2024 14:00:41 CDT by Mark Hall M.D.
[2024-06-18 06:15] LABS: Basophils Percent Auto 0.2 % (0.2-1.2); Eosinophils Percent Auto 0.3 % (0-4.4); Immature Granulocyte Absolute 0.03 K/mm3 (0.00-0.031); Immature Granulocyte Percent A 0.3 % (0-0.5); Lymphocytes Absolute Auto 0.57 K/mm3 (0.9-3.2); Lymphocytes Percent Auto 6.1 % (18.3-44.2); Mean Corpuscular HGB Conc 31.9 g/dl (32-36); Mean Corpuscular Hemoglobin 31.3 pg (26-34); Mean Corpuscular Volume 97.9 fl (80-100); Mean Platelet Volume 10.7 fl (7.4-10.4); Monocytes Absolute Auto 0.8 K/mm3 (0.1-0.6); Monocytes Percent Auto 8.1 % (2.6-8.5); Platelet Count Result 208 k/mm3 (150-375); Red Cell Distribution Width 12.5 % (11.5-14.5); White Blood Count 9.4 K/mm3 (4.5-10.0)
--- NOTE | 2024-06-18 06:19 | ED.GENADULT ---
HPI - General Adult General Chief complaint: Shortness of Breath/Dyspnea <Mohinder Davison MD - Last Filed: 06/18/24 06:21> Stated complaint: CP, SOB <Mohinder Davison MD - Last Filed: 06/18/24 06:21> Time Seen by Provider: 06/18/24 06:12 <Mohinder Davison MD - Last Filed: 06/18/24 06:21> History of Present Illness HPI narrative: Patient is a 59-year-old gentleman who presents emergency department with chief complaint of chest pain and shortness of breath. The patient reports that he has history of COPD and is supposed to wear oxygen but states that it does not help illness so he just uses a small portable fan to blow in his face to get relief whenever he gets more short of breath. Does patient reports that over the last several days he has been having increased cough has been productive sputum the patient denies fever reports that he has injured ribs before in the past whenever he is coughing patient reports no trauma <Mohinder Davison MD - Last Filed: 06/18/24 06:21> Related Data Home medications: Home Medications Medication Instructions Recorded Confirmed albuterol sulfate 90 mcg/actuation 1 - 2 puff inhalation Q4H PRN 02/01/2118 aerosol inhaler Shortness Of Breath Or Wheezing <Mohinder Davison MD - Last Filed: 06/18/24 06:21> Allergies/adverse reactions: Allergies Allergy/AdvReac Type Severity Reaction Status Date / Time No Known Allergies Allergy Unverified 05/16/19 12:30 <Mohinder Davison MD - Last Filed: 06/18/24 06:21> Review of Systems Review of Systems: A 10 system review of systems was completed on the patient and is negative except for what is stated in the HPI. Nursing and ancillary documentation was reviewed. <Mohinder Davison MD - Last Filed: 06/18/24 06:21> PMFSH Past Medical History Medical History: Medical History Asthma Chronic obstructive pulmonary disease Community acquired bacterial pneumonia Malnutrition Methamphetamine use Tobacco abuse <Mohinder Davison MD - Last Filed: 06/18/24 06:21> Surgical History Surgical History: Surgical History History of tonsillectomy <Mohinder Davison MD - Last Filed: 06/18/24 06:21> Family History Family History: Family History Mother Diabetes mellitus Patient's mother is in good health Cerebrovascular accident Father Patient's father is in good health Dementia Sibling Patient's sister is in good health <Mohinder Davison MD - Last Filed: 06/18/24 06:21> Social History Social History: Social History Social History: The patient lives in his father's old home in [place]. He smoked up to a pack of cigarettes per day for about 40 years and is now down to a pack a week. Formally smoked marijuana. On occasion he will snort methamphetamines and lasted so several days ago ?to keep myself motivated.? He drinks 15 cans of beer a week. He designates his sister, Madison Messina, as his surrogate decision maker. He wishes to be a full code. Spiritual care concerns: No <Mohinder Davison MD - Last Filed: 06/18/24 06:21> Exam Narrative: GENERAL: Well-appearing, well-nourished, and in no acute distress. HEAD: Normocephalic, atraumatic. EYES: PERRLA and EOMI. ENT: Nares clear, no rhinorrhea or epistaxis. Mucous membranes moist. NECK: Supple. CHEST: Clear to auscultation. No respiratory distress. HEART: Regular rate and rhythm. No murmur heard. Normal peripheral pulses. ABDOMEN: Soft, nontender, nondistended, normal active bowel sounds. EXTREMITIES: Normal range of motion. No edema. SKIN: Warm, dry, no rash. NEURO: No focal deficits. A
[2024-06-18] MEDS: ASPIRIN 81 MG CHEWABLE TABLET 324 MG PO (06:24)
[2024-06-18] MEDS: methylPREDNISolone SOD SUCC 125 MG VIAL IV PUSH (06:24)
[2024-06-18 06:25] LABS: INR 1.1; Prothrombin Time 14.5 Seconds (11.1-14.7)
[2024-06-18 06:26] LABS: Partial Thromboplastin Time 34.2 Seconds (22.3-36.8)
[2024-06-18 06:31] LABS: Alanine Aminotransferase 29 U/L (6-50); Albumin Level 4.6 g/dL (3.5-5.1); Alkaline Phosphatase 99 U/L (38-126); Aspartate Amino Transferase 28 U/L (17-59); Bilirubin,Total 0.6 mg/dL (0.2-1.3); Blood Urea Nitrogen 6 mg/dL (9-20); Calcium 8.9 mg/dL (8.4-10.2); Carbon Dioxide > 40 mmol/L (22-30); Chloride 86 mmol/L (98-107); Estimated CRCL calculation 90 ml/min; Estimated Glomerular Filt Rate > 60; Glucose 78 mg/dL (65-110); Lipase 43 U/L (23-300); Potassium 4.1 mmol/L (3.4-5.0); Sodium 132 mmol/L (137-145)
[2024-06-18 06:39] LABS: Troponin I 0.029 ng/mL (0.000-0.034)
[2024-06-18] MEDS: IPRATROPIUM 0.5 MG/ALBUTEROL SULFATE 2.5 MG AMPUL.NEB 3 ML INHALATION ×3 (06:40→20:00)
[2024-06-18 06:46] LABS: Base Excess ABG 7.6 mEq/l (+/-2.0); Fractional Inspired Oxygen 32 %; HCO3 ABG 35.2 mEq/l (22.0-26.0); Oxygen Content ABG 19.2 %vol (16.0-22.0); Oxygen Saturation ABG 96.5 % (95.0-100.0); Oxyhemoglobin 95.1 % THb (90.0-100.0); PO2 FiO2 Ratio Arterial Blood 2.84 %; Total Hemoglobin 14.3 g/dL (12.0-18.0); pH ABG 7.368 (7.350-7.450)
[2024-06-18 06:47] LABS: Lactic Acid Reflex 0.7 mmol/L (0.7-2.0)
[2024-06-18 06:47] LABS: Magnesium 1.9 mg/dL (1.6-2.3)
[2024-06-18 06:49] LABS: Device NASAL CANNULA; Modified Allen's Test Pass; PCO2 ABG 62.5 mmHg (35.0-45.0); Site Drawn RIGHT RADIAL
[2024-06-18 06:56] LABS: NT Pro B Type Natriuretic Pept 3200 pg/mL (19.9-100)
[2024-06-18 07:07] LABS: Procalcitonin 0.1 ng/mL
[2024-06-18 07:10] LABS: Influenza A QL RT-PCR Negative (Negative); Influenza B QL RT-PCR Negative (Negative); RSV RNA, RT-PCR Negative (Negative); SARS-CoV-2 RNA PCR Negative (Negative)
--- NOTE | 2024-06-18 08:51 | ECG_ITS ---
Test Date: 2024-06-18 06:14:35 Measurements Intervals [place] Rate: 104 P: 76 [place]: 140 QRS: 66 QRSD: 96 T: 62 QT: 373 QTc: 491 Interpretive Statements SINUS TACHYCARDIA RIGHT ATRIAL ENLARGEMENT [0.3mV P WAVE] LEFT ATRIAL ENLARGEMENT [-0.15mV P WAVE IN V1/V2] NONSPECIFIC ST ELEVATION [0.05+ mV ST ELEVATION] LEFT VENTRICULAR HYPERTROPHY WITH SECONDARY ST AND T-WAVE ABNORMALITY ABNORMAL ECG No previous ECG available for comparison Electronically Signed On 06-18-2024 13:54:05 CDT by Mark Hall M.D.
[2024-06-18 10:18] LABS: Troponin I 0.016 ng/mL (0.000-0.034)
[2024-06-18] MEDS: DOXYCYCLINE 100 MG/NS 100 ML 100 MG/100 ML BAG IVPB ×2 (11:31→21:25)
--- NOTE | 2024-06-18 14:09 | PC.NURSE ---
This patient, Nelson Graff, was admitted to 3 [facility] Surg Room 323-01. Patient/family oriented to hospital policies and general routines including ID bracelet, bed and alarms, visiting hours, pain management, procedures, bathroom and other care routines, personal items, smoking policy, room service/diet, and visiting hours. Information on how to activate the Rapid Response Team has been discussed. Patient/Family are encouraged to report perceived risks to care and to ask questions if they do not understand what they are told or what they should do.
[2024-06-18 14:38] LABS: Troponin I < 0.012 ng/mL (0.000-0.034)
--- NOTE | 2024-06-18 15:37 | PC.NURSE ---
This RN made MD Benitez aware of pt's down-trending trops, abnormal EKG, BNP of 3200, and 1+ pitting BLE. Per MD, no new orders at this time, will review chart.
--- NOTE | 2024-06-18 16:34 | PM.IMHP ---
H&P: HPI History of Present Illness Date/Time: 06/18/24 16:34 Chief Complaint: Short of breath and productive cough Narrative: 59 years old gentleman with history of COPD, present ED with a chief complaint of productive cough and shortness breath. Patient has been having productive cough in past few more days, with greenish yellow sputum. And patient also has progressive shortness breast in past few days. Patient has chest tightness bilaterally with cough and deep breath. Patient denied headache, focal weakness, vision change, abdomen pain, nausea vomiting diarrhea dysuria fever or chills. Patient has worsening shortness breast today, therefore patient came to ED for evaluation treatment. Upon arrival in the ED, patient was found have tachycardia tachypnea, hypoxemia, patient needs 3 L oxygen in the ED. CBC unremarkable, chemistry showed hyponatremia 132, bicarbonate 40. ABG showed compensated respiratory acidosis, CO2 retention pCO2 62.5. Serial troponin times 3, negative, EKG shows sinus tachycardia mo [address] T-wave changes. CT scan was done in the ED, the showed right lower lobe pneumonia and trace pleural effusion and additional region of pneumonia in the anterior inferior lingula. In the ED, patient received bronchodilator, antibiotics, patient still has dyspnea. We admit patient for further evaluation treatment PMFSH Past Medical History Medical History Asthma Chronic obstructive pulmonary disease Community acquired bacterial pneumonia Malnutrition Methamphetamine use Tobacco abuse Surgical History Surgical History History of tonsillectomy Family History Family History Mother Diabetes mellitus Patient's mother is in good health Cerebrovascular accident Father Patient's father is in good health Dementia Sibling Patient's sister is in good health Social History Social History Social History: The patient lives in his father's old home in [place]. He smoked up to a pack of cigarettes per day for about 40 years and is now down to a pack a week. Formally smoked marijuana. On occasion he will snort methamphetamines and lasted so several days ago ?to keep myself motivated.? He drinks 15 cans of beer a week. He designates his sister, Madison Messina, as his surrogate decision maker. He wishes to be a full code. Smoking status: Current every day smoker Alcohol intake: never Substance use: current Substance use type: methamphetamine Last use: 06/16/2024 Do You Feel Safe in your Home?: Yes Lack of Transportation: No Lack of Food: Never True Current Housing: I Have Housing Concerned About Future Housing: No Difficulty Paying Gas/Electric Bills: No Difficulty Paying for Meds: No Currently Unemployed: No Education: Decline to Answer Difficulty w/ Childcare or Family Care: No Spiritual care concerns: No Meds Home Medications and Allergies Home Medications Medication Instructions Recorded Confirmed Type albuterol sulfate 90 mcg/actuation 2 puff inhalation QID PRN 02/04/21 06/18/24 Rx aerosol inhaler shortness of breath or wheezing #6.7 grams Allergies Allergy/AdvReac Type Severity Reaction Status Date / Time No Known Allergies Allergy Unverified 05/16/19 12:30 Vital Signs Vital Signs - 24 hr 06/18/24 05:56 06/18/24 06:40 06/18/24 06:55 Pulse Rate 102 H 93 89 Respiratory Rate 20 20 20 Blood Pressure 137/103 H Pulse Oximetry 98 Oxygen Delivery Nasal Cannula Oxygen Flow Rate 3 06/18/24 07:01 06/18/24 07:10 06/18/24 07:31 Pulse Rate 100 103 H Respiratory Rate 21 H 27 H Blood Pressure 135/98 H 136/85 Pulse Oximetry 98 100 97 Oxygen Delivery Nasal Cannula Oxygen Flow Ra
[2024-06-18] MEDS: SODIUM CHLORIDE 0.9% IV 1,000 ML 75 ML IV CONT (17:30)
[2024-06-18] MEDS: methylPREDNISolone SOD SUCC 125 MG VIAL 60 MG IV PUSH (17:30)
[2024-06-19] VITALS (15 sets, daily range): BP systolic 119–132; BP diastolic 71–99; PULSE 85–113; RESP 16–24; TEMP 36.2–37.2; O2SAT 87–96; BMI 16.7
[2024-06-19] MEDS: methylPREDNISolone SOD SUCC 125 MG VIAL 60 MG IV PUSH ×4 (00:35→16:26)
[2024-06-19] MEDS: IPRATROPIUM 0.5 MG/ALBUTEROL SULFATE 2.5 MG AMPUL.NEB 3 ML INHALATION ×4 (01:42→20:09)
[2024-06-19 03:33] LABS: Add Urine Microscopic? YES; Appearance Urine Clear (Clear); Bacteria Urine None Seen /hpf; Bilirubin Urine Negative (Negative); Blood Urine Negative (Negative); Color Urine Yellow (Yellow); Glucose Urine UA 2+ mg/dL (Negative); Ketones Urine Negative (Negative); Leukocyte Esterase Ur Negative LEU/UL (Negative); Nitrate Urine Negative (Negative); Non Pathogenic Casts 0-2; Protein Urine 1+ mg/dL (Negative); RBC Urine 0-2 /hpf (0-2); Specific Grav Ur 1.025 (1.001-1.035); Squamous Epithelial Cell Urine None Seen /hpf (Few); WBC Urine 0-5 /hpf (0-3); pH Urine 6.5 (5.0-9.0)
[2024-06-19] MEDS: SODIUM CHLORIDE 0.9% IV 1,000 ML 75 ML IV CONT ×2 (05:42→12:26)
[2024-06-19 08:03] LABS: Anion Gap 4 mmol/L (4-12); Blood Urea Nitrogen 13 mg/dL (9-20); Calcium 8.3 mg/dL (8.4-10.2); Carbon Dioxide 37 mmol/L (22-30); Chloride 93 mmol/L (98-107); Estimated CRCL calculation 74 ml/min; Estimated Glomerular Filt Rate > 60; Glucose 141 mg/dL (65-110); Potassium 4.7 mmol/L (3.4-5.0); Sodium 134 mmol/L (137-145)
[2024-06-19] MEDS: DOXYCYCLINE 100 MG/NS 100 ML 100 MG/100 ML BAG IVPB ×2 (08:49→20:20)
--- NOTE | 2024-06-19 10:10 | PM.IMPN ---
Progress Note: A&P Assessment and Plan (1) Multifocal pneumonia: Code(s): J18.9 - Pneumonia, unspecified organism Status: Acute Assessment and Plan: COPD exacerbation, acute respiratory failure with hypoxemia and hypercapnia, multifocal pneumonia CT shows multiple focal pneumonia, involving right lower lobe pneumonia and additional region of pneumonia in the anterior inferior lingula. Troponin negative x3, EKG shows sinus rhythm no specific ST and T-wave changes Received ceftriaxone and doxycycline in the ED, continue ceftriaxone and doxycycline IV start DuoNeb scheduled q.6 hours and albuterol inhaler 2 puff q.i.d. p.r.n. Received methylprednisolone 125 mg IV push once, continue methylprednisone 60 mg q.6 hours IV Start O2 therapy to keep pulse ox above 92 Elevated BNP 3200 Follow echocardiogram (2) Acute exacerbation of chronic obstructive pulmonary disease: Code(s): J44.1 - Chronic obstructive pulmonary disease with (acute) exacerbation Status: Acute Assessment and Plan: see above (3) Acute respiratory failure with hypercapnia: Code(s): J96.02 - Acute respiratory failure with hypercapnia Status: Acute Assessment and Plan: see above (4) Tobacco abuse: Code(s): Z72.0 - Tobacco use Status: Acute Assessment and Plan: - smoking cessation counseling provided nicotine patch ordered (5) Hyponatremia: Code(s): E87.1 - Hypo-osmolality and hyponatremia Status: Acute Assessment and Plan: Sodium 132 Possible SAH due to COPD exacerbation and pneumonia Switch from L Ringer 125/H to normal saline IV 75 ml/h Follow-up BMP a.m. tomorrow Time Spent With Patient Time with patient: Greater than 35 minutes Subjective Date/time seen: 06/19/24 10:10 Interval history: Short of breath and productive cough Narrative retrieved from H/P: 59 years old gentleman with history of COPD, present ED with a chief complaint of productive cough and shortness breath. Patient has been having productive cough in past few more days, with greenish yellow sputum. And patient also has progressive shortness breast in past few days. Patient has chest tightness bilaterally with cough and deep breath. Patient denied headache, focal weakness, vision change, abdomen pain, nausea vomiting diarrhea dysuria fever or chills. Patient has worsening shortness breast today, therefore patient came to ED for evaluation treatment. Upon arrival in the ED, patient was found have tachycardia tachypnea, hypoxemia, patient needs 3 L oxygen in the ED. CBC unremarkable, chemistry showed hyponatremia 132, bicarbonate 40. ABG showed compensated respiratory acidosis, CO2 retention pCO2 62.5. Serial troponin times 3, negative, EKG shows sinus tachycardia mo [address] T-wave changes. CT scan was done in the ED, the showed right lower lobe pneumonia and trace pleural effusion and additional region of pneumonia in the anterior inferior lingula. In the ED, patient received bronchodilator, antibiotics, patient still has dyspnea. We admit patient for further evaluation treatment 06/19- dietitian consulted fro nutritional supplements. Pt is resting in bed, voicing no complains. Review of Systems Constitutional: Constitutional: Denies chills ENT: Denies nasal congestion Cardiovascular: Cardiovascular: Denies chest pain and Denies diaphoresis Respiratory: Respiratory: Reports chest congestion and Reports cough Gastrointestinal: Gastrointestinal: Denies abdominal pain Genitourinary: Genitourinary: Denies hematuria Exam Narrative: GENERAL: Pleasant, in no acute distress. - EYES: EOMI. Anicteric. - HENT: Moist mucous membranes. Per dental health - LUNGS: Distant breath sound bilaterally, scattered rhonchi, tachypnea - CARDIOVASCULAR: Regular rate and rhythm. No murmur. No JVD. - ABDOMEN: Soft, non-tender and non-distended. No palpable masses. - EXTREMITIES: No ed
--- NOTE | 2024-06-19 13:10 | P.CDI_ITS ---
CDI Query Clarification Request BMI: 16.8 Nutritional Diagnostic Statement: Please refer to the comprehensive nutrition assessment for further information. If you agree with diagnosis of Severe protein calorie malnutrition related to inadequate energy intake as evidenced by reduced po intake greater than 1 month, significant weight loss x 3 months of -12%, and NFPE findings for severe subcutaneous fat loss (cheeks) and severe muscle wasting (congregation, clavicle, thigh). Please specify severity if known: * Mild * Moderate * Severe * Other/Unknown <Vivi Franz RN - Last Filed: 06/19/24 13:11> Clarified Diagnosis Clarified Diagnosis: moderate <Haley Lopez APRN - Last Filed: 06/19/24 14:23>
[2024-06-19] MEDS: ACETAMINOPHEN 325 MG TABLET 650 MG PO (16:25)
--- NOTE | 2024-06-19 17:28 | ECHO_ITS ---
Patient Info Name: Nelson Graff Age: 59 years : 1965 Gender: Male Ht: 66 in Wt: 104 lbs BSA: 1.47 m2 HR: 85 bpm BP: 119 / 71 mmHg Technical Quality: Fair Exam Date: 06/19/2024 10:50 AM Exam Location: Echo Lab Patient Status: Outpatient Admit Date: 06/18/2024 Staff Ordering Physician: Sylvester Pagan MD Automatic Machine Attendant: Gareth Peterson RDCS Attending Provider: Jory Benitez MD Exam Type: CA echo doppler color flow Study Info Indications - Elevated BNP - COPD R06.02 - Shortness of breath Complete two-dimensional, color flow and Doppler transthoracic echocardiogram is performed. Summary 1. Complete two-dimensional, color flow and Doppler transthoracic echocardiogram is performed. 2. The left ventricular size and systolic function is normal. The left ventricular ejection fraction is estimated to be 55-60%. 3. The right ventricle is dilated. The right ventricular systolic function is normal. 4. There is intraventricular septal flattening suggestive of right ventricular pressure overload. Left Ventricle The left ventricular size and systolic function is normal. The left ventricular ejection fraction is estimated to be 55-60%. Right Ventricle The right ventricle is dilated. The right ventricular systolic function is normal. There is intraventricular septal flattening suggestive of right ventricular pressure overload. Left Atria The left atrial size is normal. Right Atria The right atrial size is normal. Aortic Valve The aortic valve is probable trileaflet. There is no aortic stenosis or regurgitation. Pulmonic Valve The pulmonic valve is not well visualized. Mitral Valve The mitral valve is normal. There is trace mitral regurgitation. Tricuspid Valve The tricuspid valve is normal. There is trace tricuspid regurgitation. Pericardium/Pleural Pericardium is normal in appearance with no evidence for significant pericardial effusion. Inferior Vena Cava Normal inferior vena cava with >50% collapse upon inspiration consistent with normal right atrial pressure, 3 mmHg. Left Ventricular Outflow Tract Name Value Normal LVOT 2D LVOT Diameter 2.0 cm LVOT Doppler LVOT Peak Gradient 5 mmHg LVOT Mean Gradient 3 mmHg LVOT VTI 21 cm LVOT VTI/AV VTI Ratio 0.9 LVOT Stroke Volume 63 ml LVOT CO 6.1 l/min LVOT CI 4.1 l/min/m2 Pulmonic Valve Name Value Normal PV Doppler PV Peak Gradient 5 mmHg Mitral Valve Name Value Normal MV Doppler MV Decel [place] 695 cm/
[2024-06-20] VITALS: PULSE 100
[2024-06-20] MEDS: methylPREDNISolone SOD SUCC 125 MG VIAL 60 MG IV PUSH (00:50)
--- NOTE | 2024-06-20 02:24 | PC.NURSE ---
Respiratory reported to bedside and came out of the room stating the patient was upset and wanted to leave AMA. This RN reported to bedside and patient stated this bed is uncomfortable, I cannot lay here anymore, and I am leaving no matter what . This RN educated patient on risks of leaving, and benefits of staying. The patient still requested to leave AMA and signed the paperwork. This RN and security escorted the patient outside to the bench.
--- NOTE | 2024-06-25 07:03 | PM.DS ---
DS: Admitting Diagnosis Discharge Date 06/20/24 Admitting Diagnosis sob DS: Discharge Diagnosis Discharge Diagnosis (1) Multifocal pneumonia: Code(s): J18.9 - Pneumonia, unspecified organism Status: Acute Assessment and Plan: COPD exacerbation, acute respiratory failure with hypoxemia and hypercapnia, multifocal pneumonia CT shows multiple focal pneumonia, involving right lower lobe pneumonia and additional region of pneumonia in the anterior inferior lingula. Troponin negative x3, EKG shows sinus rhythm no specific ST and T-wave changes Received ceftriaxone and doxycycline in the ED, continue ceftriaxone and doxycycline IV start DuoNeb scheduled q.6 hours and albuterol inhaler 2 puff q.i.d. p.r.n. Received methylprednisolone 125 mg IV push once, continue methylprednisone 60 mg q.6 hours IV Start O2 therapy to keep pulse ox above 92 Elevated BNP 3200 Follow echocardiogram (2) Acute exacerbation of chronic obstructive pulmonary disease: Code(s): J44.1 - Chronic obstructive pulmonary disease with (acute) exacerbation Status: Acute Assessment and Plan: see above (3) Acute respiratory failure with hypercapnia: Code(s): J96.02 - Acute respiratory failure with hypercapnia Status: Acute Assessment and Plan: see above (4) Tobacco abuse: Code(s): Z72.0 - Tobacco use Status: Acute Assessment and Plan: - smoking cessation counseling provided nicotine patch ordered (5) Hyponatremia: Code(s): E87.1 - Hypo-osmolality and hyponatremia Status: Acute Assessment and Plan: Sodium 132 Possible SAH due to COPD exacerbation and pneumonia Switch from L Ringer 125/H to normal saline IV 75 ml/h Follow-up BMP a.m. tomorrow DS: Summary Hospital Course Hospital Course: i was not present during the accident or was notified- however- according to nursing note- pt got upset about the comfortably of [place] hospital bed at night and left AMA. He was admitted for pneumonia amd was still undergoign tests as BNP was elevated. He received ceftriaxone and doxycycline in the ED, and we continued ceftriaxone and doxycycline IV WE started DuoNeb scheduled q.6 hours and albuterol inhaler 2 puff q.i.d. p.r.n. Received methylprednisolone 125 mg IV push once, continue methylprednisone 60 mg q.6 hours IV Start O2 therapy to keep pulse ox above 92 Status at Discharge Functional status at discharge: independent ambulation Overall status at discharge: patient is progressing back to baseline Time Spent with Patient Time attestation: Total time spent providing and/or coordinating discharge services: Specific discharge activities: pt needs to f/u with PCP to continue antibiotics and get re assessment Exam Narrative: exam was not completed as i was not present during the encounter Discharge Plan Discharge Consulting providers: Aryan March; Mark Hall; Desmond Marinelli; Haley Lopez; Sylvester Pagan Discharging Clinician: Haley Lopez Patient Disposition: Left Against Medical Advice Activity: january shower Diet: as tolerated and heart healthy Discharge Instructions: pt needs to f/u with PCP as he left and no provider was aware- so no antibiotics were continue for his pneumonia. 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
== END 2024-06-20 02:25 | disposition left against medical advice (07) ==
LOC: ANHED 11:02 → ANH3MEDSUR 13:06
PROVIDERS: Hospitalist; Admitting Provider Family Medicine; Emergency Provider Emergency Medicine; PCP Nurse Practitioner Family; Visit Provider Family Medicine
DX: J96.02 Acute respiratory failure with hypercapnia (principal); J96.01 Acute respiratory failure with hypoxia; J44.0 Chronic obstructive pulmonary disease with (acute) lower respiratory infection; J18.9 Pneumonia, unspecified organism; J44.1 Chronic obstructive pulmonary disease with (acute) exacerbation; E87.1 Hypo-osmolality and hyponatremia; E44.0 Moderate protein-calorie malnutrition; Z68.1 Body mass index [BMI] 19.9 or less, adult; F15.90 Other stimulant use, unspecified, uncomplicated; Z79.51 Long term (current) use of inhaled steroids; F17.210 Nicotine dependence, cigarettes, uncomplicated; Z20.822 Contact with and (suspected) exposure to COVID-19
CPT/HCPCS: 36415; 36600; 71046; 71250; 80048; 80053; 81001; 82805; 83605; 83690; 83735; 83880; 84145; 84484; 85018; 85025; 85610; 85730; 87637; 93005; 93306; 94640; 96365; 96366; 96374; 96375; 96376; 99285; A9270; G0378; G0379; J0696; J2919; J7030

== ENCOUNTER 2025-01-02 01:03 | Emergency (ER) | payer OTHER, SELFPAY ==
--- OUTSIDE RECORDS SUMMARY | 2025-01-02 07:27 | XMS_ITS | Encounter Summary ---
Author Organization [facility] Address 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 Name Role Phone Unavailable Primary Care Provider Unavailabl e Encounter Details Date Type Department Care Team (Late st Contact Info) Description 11/12/2001 Outpatient Historical [facility] [address] [place] [address] Dennys Ceballos, DO [address] [address] Social History Tobacco Use Types Packs/Day Years Used Date Smoking Tobacco: Never Assessed Sex and Gender Information Value Date Recorded Sex Assigned at Not on file Legal 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
--- OUTSIDE RECORDS SUMMARY | 2025-01-02 07:27 | XMS_ITS | Clinical Summary ---
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 255 g 0 7 Active Social History Tobacco Use Types Packs/Day Years Used Date Smoking Tobacco: Never Assessed Sex and Gender Information Value Date Recorded Sex Assigned at Not on file Legal Sex Male 7:45 AM CDT Gender Identity Not on file Sexual Orientation Not on file Plan of Treatment Health Maintenance Due Date Last Done Comments Hepatitis C Virus (HCV) Screening 1965 TdaP Immunization 1965 Colonoscopy 2009 Colorectal Cancer Screening 2009 Cologuard 2014 Immunochemical Fecal Occult Blood 2014 Pneumococcal Immunization (5 0+ years) (1 of 1 - PCV) 2014 Zoster Immunization (1 of 2) 2014 PSA Discussion 2019 Influenza Immunization (#1) 2024 SARS-COV-2 Immunization (1 - 2023- season) 2024 Respiratory Syncytial Virus (RSV) Immunization (Adult) (1 - 1-dose 75+ series) 2039 Hepatitis B Immunization Aged Out No longer eligible based on patient's age to complete this topic Meningococcal Immunization (ACWY) Aged Out No longer eligible based on patient's age to complete this topic Pneumococcal Immunization Combined Aged Out No longer eligible based on patient's age to complete this topic Rotavirus Immunization Aged Out No lo nger eligible based on patient's age to complete this topic [place]
--- OUTSIDE RECORDS SUMMARY | 2025-01-02 07:27 | XMS_ITS | Referral Summary ---
Author Organization [facility] [address] Address [address] [place] [address] Care Team Providers Care Food Preparation Worker Name Role Phone No, Physician Primary Care Provider Camden Zamorano MD Unavailable Miscellaneous, Not In File Unavailable Unava ilable Encounters Date Type Department Care Team Description 11/01/2024 5:04 PM INBOUND CUSTOMER SERVICE AGENT - 11/09/2024 11:08 AM [facility] Hospital Encounter [facility] [address] [place] [address] Odin Newell MD Berhil, Anis, MD Reuter, Matthew Daniel, MD Madej, Ritesh Weiss, DO Right wrist drop [M21.331] (Primary Dx); Acute congestive heart failure, unspecified heart failure type (HCC) [I50.9]; Severe malnutrition (CMS/HCC) (HCC) [E43]; Congestive heart failure, unspecified HF chronicity, unspecified heart failure type (HCC); Failure to thrive in adult; Methamphetamine abuse (HCC); Right wrist drop; Encounter to establish care; COPD exacerbation (HCC); 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]; 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; Acute combined systolic and diastolic congestive heart failure (HCC); Acute systolic congestive heart failure (HCC); Cigarette smoker; Debility Discharge Disposition: Discharge to home, home health skilled care 11/05/2024 8:00 AM INBOUND CUSTOMER SERVICE AGENT - 11/05/2024 9:50 AM INBOUND CUSTOMER SERVICE AGENT Surgery [facility] [address] [place] [address] Mary Day MD Aborted Cath Case Intra Proc from Last 3 Months Allergies No known active allergies Medications aspirin 81 mg enteric coated tablet Take 1 tablet (81 mg total) by mouth daily 90 tablet 11/08/2024 5 Active budesonide-formo teroL (SYMBICORT) 160-4.5 mcg/actuation inhaler Inhale 2 puffs 2 (two) times a day Rinse mouth with water after use. Do not swallow. 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 11/03/2024 Acute congestive heart failure 11/02/2024 Wrist drop 11/01/2024 COPD exacerbation 11/01/2024 Severe malnutrition 11/01/2024 Bilateral cellulitis of lower leg 11/01/2024 Metabolic alkalosis 11/01/2024 Methamphetamine abuse 11/01/2024 IV drug user 11/01/2024 Cigarette smoker 11/01/2024 Social History Tobacco Use Types Packs/Day Years Used Date Smoking Tobacco: Every Day Cigarettes Tobacco Cessation:Ready to Q uit: Not Asked; Counseling Given: Not Answered Alcohol Use Standard Drinks/Week Comments Yes 0 (1 standard drink = 0.6 oz pur e alcohol) [facility] Utilities Answer Date Recorded In the past 12 months has th e electric, gas, oil, or water company threatened to shut off services in your home? No 11/03/2024 Social Connection and Isolation Panel [NHANES] A nswer Date Recorded In a typical week, how many times do you talk on the phone with family, friends, or neighbors? Three times a week 11/03/2024 How often do you get togethe r with friends or relatives? Three times a week 11/03/2024 How often do you attend chur ch or mandaeism services? Never 11/03/2024 Do you belong to any clubs o r organizations such as shinto groups, unions, fraternal or athletic groups, or school groups? No 11/03/2024 How often do you attend meet ings of the clubs or organizations you belong to? Never 11/03/2024 Are you , , di vorced, , never , or living with a partner? 11/03/2024 Overall Financial Resource Strain (CARDIA) Answe r Date Recorded How hard is it for you to pa y for the very basics like food, housing, medical care, and heating? Somewhat hard 11/03/2024 Hunger Vital Sign Answer Date Recorded Within the past 12 months, y ou worried that your food would run out before you got the money to buy more. Sometimes true Within the past 12 months, t he food you bought just didn't last and you didn't have money to get more. Never true PRAPARE - Transportation Answer Date Re corded In the past 12 months, has l ack of transportation kept you from medical appointments or from getting medications? Yes 10/18 In the past 12 months, has l ack of transportation kept you from meetings, work, or from getting things needed for daily living? Yes 11/03/2024 Housing Stability Vital Sign Answer Adelfo e Recorded In the last 12 months, was t here a time when you were not able to pay the mortgage or rent on time? No 11/03/2024 In the past 12 months, how m any times have you moved where you were living? 0 11/03/2024 At any time in the past 12 m [facility], were you homeless or living in a senior care (including now)? No 11/03/2024 Personal Safety Answer Date Recorded Have you ever been in or are you currently in a harmful physical or emotional relationship or is someone making you feel afraid or unsafe? Denies 11/01/2024 Sex and Gender Information Value Date Recorded Sex Assigned at Not on file Legal Sex Male 4:31 PM INBOUND CUSTOMER SERVICE AGENT Gender Identity Not on file Sexual Orientation Not on file Last Filed Vital Signs Vital Sign Reading Time Taken Comments Blood Pressure 113/55 11/09/2024 10:45 AM INBOUND CUSTOMER SERVICE AGENT Pulse 99 11/09/2024 10:45 AM INBOUND CUSTOMER SERVICE AGENT Temperature 36.7 C (98.1 F) 11/09/2024 10:45 AM INBOUND CUSTOMER SERVICE AGENT discharge vitals Respiratory Rate 18 11/09/2024 10:4 5 AM INBOUND CUSTOMER SERVICE AGENT Oxygen Saturation 100% 11/09/2024 10: 45 AM INBOUND CUSTOMER SERVICE AGENT Inhaled Oxygen Concentration - - Weight 55.7 kg (122 lb 12.8 oz) 11/02/2024 4:00 PM INBOUND CUSTOMER SERVICE AGENT Height 167.6 cm (5' 6 ) 11/01/2024 8:58 PM INBOUND CUSTOMER SERVICE AGENT Body Mass Index 19.82 11/01/2024 8:58 PM INBOUND CUSTOMER SERVICE AGENT Plan of Treatment Not on file Procedures Procedure Name Priority Date/Time Associated Diagnosis Comments EGFR Routine 11/09/2024 6:01 AM INBOUND CUSTOMER SERVICE AGENT BASIC METABOLIC PANEL Routine 11/09/2024 6:01 AM INBOUND CUSTOMER SERVICE AGENT EGFR Routine 11/08/2024 6:10 AM INBOUND CUSTOMER SERVICE AGENT BASIC METABOLIC PANEL Routine 11/08/2024 6:10 AM INBOUND CUSTOMER SERVICE AGENT CT ABDOMEN PELVIS W CONTRAST IP Routine 11/07/2024 4:48 PM INBOUND CUSTOMER SERVICE AGENT EGFR Routine 11/07/2024 6:59 AM INBOUND CUSTOMER SERVICE AGENT BASIC METABOLIC PANEL Routine 11/07/2024 6:59 AM INBOUND CUSTOMER SERVICE AGENT CT ABDOMEN PELVIS W CONTRAST IP Routine 11/06/2024 5:08 PM INBOUND CUSTOMER SERVICE AGENT EGFR Routine 11/06/2024 4:36 AM INBOUND CUSTOMER SERVICE AGENT BASIC METABOLIC PANEL Routine 11/06/2024 4:36 AM INBOUND CUSTOMER SERVICE AGENT CT ABDOMEN PELVIS W CONTRAST IP Routine 11/05/2024 11:10 AM INBOUND CUSTOMER SERVICE AGENT EGFR Routine 11/05/2024 9:53 AM INBOUND CUSTOMER SERVICE AGENT BASIC METABOLIC PANEL Routine 11/05/2024 9:53 AM INBOUND CUSTOMER SERVICE AGENT CARDIAC CATHETERIZATION Routine 11/05/19 9:36 AM INBOUND CUSTOMER SERVICE AGENT 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) EGFR Routine 11/04/2024 4:45 AM INBOUND CUSTOMER SERVICE AGENT DIFFERENTIAL AUTO Routine 11/04/2024 4:4 5 AM INBOUND CUSTOMER SERVICE AGENT BASIC METABOLIC PANEL Routine 11/04/2024 4:45 AM INBOUND CUSTOMER SERVICE AGENT CBC WITH AUTO DIFFERENTIAL Routine 11/04/2024 4:45 AM INBOUND CUSTOMER SERVICE AGENT B CHECK SAMPLE STAT 11/04/2024 4:42 AM INBOUND CUSTOMER SERVICE AGENT ADD ON LAB TEST Add-On 11/03/2024 5:37 PM INBOUND CUSTOMER SERVICE AGENT TRANSTHORACIC ECHO (TTE) COMPLETE W DOPPLER/CF WO CONTRAST Routine 11/03/2024 7:32 AM INBOUND CUSTOMER SERVICE AGENT LIPID PANEL Routine 11/03/2024 4:29 AM INBOUND CUSTOMER SERVICE AGENT EGFR Routine 11/03/2024 4:29 AM INBOUND CUSTOMER SERVICE AGENT BASIC METABOLIC PANEL Routine 11/03/2024 4:29 AM INBOUND CUSTOMER SERVICE AGENT CT CHEST WO CONTRAST IP Routine 11/02/2024 1:01 PM INBOUND CUSTOMER SERVICE AGENT EGFR Routine 11/02/2024 3:41 AM INBOUND CUSTOMER SERVICE AGENT DIFFERENTIAL AUTO Routine 11/02/2024 3:4 1 AM INBOUND CUSTOMER SERVICE AGENT THYROID FUNCTION CASCADE Routine 11/02/2024 3:41 AM INBOUND CUSTOMER SERVICE AGENT VITAMIN B12 Routine 11/02/2024 3:41 AM INBOUND CUSTOMER SERVICE AGENT BASIC METABOLIC PANEL Routine 11/02/2024 3:41 AM INBOUND CUSTOMER SERVICE AGENT CBC WITH AUTO DIFFERENTIAL Routine 11/02/2024 3:41 AM INBOUND CUSTOMER SERVICE AGENT HEPATITIS C ANTIBODY Routine 11/02/2024 3:41 AM INBOUND CUSTOMER SERVICE AGENT US VEIN DUPLEX LOWER EXTREMITY BILATERAL COMPLETE IP Routine 11/01/2024 11:03 PM INBOUND CUSTOMER SERVICE AGENT TROPONIN T HIGH-SENSITIVITY 6-HOUR Timed 11/01/2024 10:56 PM INBOUND CUSTOMER SERVICE AGENT HIV 1/2 ANTIBODY PLUS P24 ANTIGEN Routine 11/01/2024 9:19 PM INBOUND CUSTOMER SERVICE AGENT MRSA ONLY (STAPHYLOCOCCUS AUREUS) PCR Routine 11/01/2024 9:19 PM INBOUND CUSTOMER SERVICE AGENT DRUGS OF ABUSE SCREEN, URINE WITHOUT CONFIRMATION STAT 11/01/2024 8:36 PM INBOUND CUSTOMER SERVICE AGENT TROPONIN T HIGH-SENSITIVITY 4-HR Timed 11/01/2024 8:36 PM INBOUND CUSTOMER SERVICE AGENT URINALYSIS AND REFLEX TO MICROSCOPIC AND CULTURE STAT 11/01/2024 8:36 PM INBOUND CUSTOMER SERVICE AGENT CT HEAD WO CONTRAST ED 11/01/2024 8 :16 PM INBOUND CUSTOMER SERVICE AGENT TROPONIN T HIGH-SENSITIVITY 2-HOUR Timed 11/01/2024 7:00 PM INBOUND CUSTOMER SERVICE AGENT INFLUENZA A/B, RSV, AND COVID-19 PCR STAT 11/01/2024 7:00 PM INBOUND CUSTOMER SERVICE AGENT BLOOD CULTURE STAT 11/01/2024 7:00 PM INBOUND CUSTOMER SERVICE AGENT BLOOD CULTURE STAT 11/01/2024 7:00 PM INBOUND CUSTOMER SERVICE AGENT CRP (ACUTE PHASE) STAT 11/01/2024 4:5 7 PM INBOUND CUSTOMER SERVICE AGENT CREATINE KINASE (CK), TOTAL STAT 11/01/2024 4:57 PM INBOUND CUSTOMER SERVICE AGENT ERYTHROCYTE SEDIMENTATION RATE STAT 11/01/2024 4:57 PM INBOUND CUSTOMER SERVICE AGENT EGFR STAT 11/01/2024 4:57 PM INBOUND CUSTOMER SERVICE AGENT DIFFERENTIAL AUTO STAT 11/01/2024 4:5 7 PM INBOUND CUSTOMER SERVICE AGENT PRO B-TYPE NATRIURETIC PEPTIDE STAT 11/01/2024 4:57 PM INBOUND CUSTOMER SERVICE AGENT TROPONIN T HIGH-SENSITIVITY SERIES (BASELINE, 2HR, 4HR, 6HR) STAT 11/01/2024 4:57 PM INBOUND CUSTOMER SERVICE AGENT CBC WITH AUTO DIFFERENTIAL STAT 11/01/2024 4:57 PM INBOUND CUSTOMER SERVICE AGENT COMPREHENSIVE METABOLIC PANEL STAT 11/01/2024 4:57 PM INBOUND CUSTOMER SERVICE AGENT XR CHEST PA LATERAL 2 VIEWS ED 11/01/2024 4:50 PM INBOUND CUSTOMER SERVICE AGENT ECG 12-LEAD STAT 11/01/2024 4:36 PM INBOUND CUSTOMER SERVICE AGENT from Last 3 Months Results * eGFR (11/09/2024 6:01 AM INBOUND CUSTOMER SERVICE AGENT) [facility] eGFR >90 >=60 mL/min/1. 73 m2 Comment: Interpretive Data Reference Interval Normal >/= 90 mL/min/1.73m2 Mildly decreased* 60 - 89 mL/min/1.73m2 Mildly to moderately decreased 45 - 59 mL/min/1.73m2 Moderately to severely decreased 30 - 44 mL/min/1.73m2 Severely decreased 15 - 29 mL/min/1.73m2 Kidney Failure < 15 mL/min/1.73m2 *Relative to young adult level Estimated glomerular filtration rate is determined by the 2020 CKD-EPI equation recommended by the National Kidney Foundation (A Unifying Approach to GFR Estimation: Recommendations of the NKF-ASK Task Force on Reassessing the Inclusion of Race in Diagnosing Kidney Disease, JASN 2020). The CKD-EPI equation should not be used for patients with unstable renal function and has not been validated in children and those over 70. Current interpretive data was last reviewed 2021. Blood 11/09/2024 6:01 AM INBOUND CUSTOMER SERVICE AGENT 11/09/2024 6:55 AM INBOUND CUSTOMER SERVICE AGENT us Ritesh Denson DO LAB BLOOD ORDERABLES Margret l Result [facility] [address] [place] [address] * (ABNORMAL) Basic metabolic panel (11/09/2024 6:01 AM INBOUND CUSTOMER SERVICE AGENT) Sodium 137 135 - 145 mmol/L Potassium, pl 4.4 3.3 - 4.9 mmol/L [facility] Chloride 92(L) 97 - 110 mmol/L [facility] CO2 39(H) 22 - 32 mmol/L [facility] Anion gap 6 2 - 15 mmol/L [facility] BUN 16 6 - 25 mg/dL [facility] Creatinine 0.59(L) 0.80 - 1.30 mg/dL [facility] Glucose 92 70 - 199 mg/dL [facility] Comment: Interpretive Data Fasting glucose >/= 126 mg/dl is diagnostic for diabetes. Fasting is defined as no caloric intake for at least 8 hours. Fasting glucose between 100 mg/dl to 125 mg/dl is diagnostic of prediabetes. In a patient with classic symptoms of hyperglycemia or hyperglycemic crisis, a random glucose >/= 200 mg/dl is diagnostic for diabetes. In the absence of unequivocal hyperglycemia, results should be confirmed by repeat testing. The classification and Diagnosis of Diabetes Diabetes Care 202; 46: S19-S40. Current interpretive data was last revised 2022. Calcium 8.8 8.5 - 10.3 mg/dL [facility] Blood 11/09/2024 6:01 AM INBOUND CUSTOMER SERVICE AGENT 11/09/2024 6:55 AM INBOUND CUSTOMER SERVICE AGENT Ritesh Abhishek Janiya DO LAB BLOOD ORDERABLES Margret l Result Performing Organization Address [facility] Co de Phone Number [facility] [address] Department [place] [address] * eGFR (11/08/2024 6:10 AM INBOUND CUSTOMER SERVICE AGENT) Pathologist [facility] eGFR >90 >=60 mL/min/1. 73 m2 Comment: Interpretive Data Reference Interval Normal >/= 90 mL/min/1.73m2 Mildly decreased* 60 - 89 mL/min/1.73m2 Mildly to moderately decreased 45 - 59 mL/min/1.73m2 Moderately to severely decreased 30 - 44 mL/min/1.73m2 Severely decreased 15 - 29 mL/min/1.73m2 Kidney Failure < 15 mL/min/1.73m2 *Relative to young adult level Estimated glomerular filtration rate is determined by the 2020 CKD-EPI equation recommended by the National Kidney Foundation (A Unifying Approach to GFR Estimation: Recommendations of the NKF-ASK Task Force on Reassessing the Inclusion of Race in Diagnosing Kidney Disease, JASN 2020). The CKD-EPI equation should not be used for patients with unstable renal function and has not been validated in children and those over 70. Current interpretive data was last reviewed 2021. Blood 11/08/2024 6:10 AM INBOUND CUSTOMER SERVICE AGENT 11/08/2024 7:10 AM INBOUND CUSTOMER SERVICE AGENT Ritesh Denson DO LAB BLOOD ORDERABLES Margret l Result Performing Organization Address [facility]/ZIP Co de Phone Number [facility] [address] Department of Laboratories [place], [place] [id number] * (ABNORMAL) Basic metabolic panel (11/08/2024 6:10 AM INBOUND CUSTOMER SERVICE AGENT) Pathologist [facility] Sodium 137 135 - 145 mmol/L Potassium, pl 5.0(H) 3.3 - 4.9 mmol/L [facility] Chloride 92(L) 97 - 110 mmol/L [facility] CO2 41(H) 22 - 32 mmol/L [facility] Anion gap 4 2 - 15 mmol/L [facility] BUN 23 6 - 25 mg/dL [facility] Creatinine 0.68(L) 0.80 - 1.30 mg/dL [facility] Glucose 104 70 - 199 mg/dL [facility] Comment: Interpretive Data Fasting glucose >/= 126 mg/dl is diagnostic for diabetes. Fasting is defined as no caloric intake for at least 8 hours. Fasting glucose between 100 mg/dl to 125 mg/dl is diagnostic of prediabetes. In a patient with classic symptoms of hyperglycemia or hyperglycemic crisis, a random glucose >/= 200 mg/dl is diagnostic for diabetes. In the absence of unequivocal hyperglycemia, results should be confirmed by repeat testing. The classification and Diagnosis of Diabetes Diabetes Care 202; 46: S19-S40. Current interpretive data was last revised 2022. Calcium 9.1 8.5 - 10.3 mg/dL [facility] Blood 11/08/2024 6:10 AM INBOUND CUSTOMER SERVICE AGENT 11/08/2024 7:10 AM INBOUND CUSTOMER SERVICE AGENT us Ritesh Denson DO LAB BLOOD ORDERABLES Margret martin Result [facility] [address] [place] [address] * CT Abdomen Pelvis W Contrast (11/07/2024 4:48 PM INBOUND CUSTOMER SERVICE AGENT) Anatomical Region Laterality Modality Body N/A Computed Tomogra phy 11/08/2024 7:55 AM INBOUND CUSTOMER SERVICE AGENT Impressions 11/08/2024 7:55 AM INBOUND CUSTOMER SERVICE AGENT 1. Extensive amount of stool in the colon with mild upstream dilatation of the small bowel. Correlate for signs and symptoms of constipation. Electronically signed by: Bong Bruner MD Narrative 11/08/2024 7:55 AM INBOUND CUSTOMER SERVICE AGENT EXAMINATION: CT OF THE ABDOMEN AND PELVIS WITH IV AND ORAL CONTRAST HISTORY: Left lower quadrant abdominal pain COMPARISON: 11/06/2024 and 11/05/2024 CT TECHNIQUE: Computed tomography of the abdomen and pelvis was performed after the uneventful intravenous administration of 72 mL Optiray 350 and administration of oral contrast per protocol contrast according to standard protocol. FINDINGS: Limited views of the lung bases demonstrate scarring or atelectasis in the lower lobes and right middle lobe, unchanged. Calcifications in the spleen similar to prior exams. The pancreas is unremarkable. No focal liver lesion. Patent portal veins. Bile ducts are unremarkable. Gallbladder is unremarkable. There is no free air. Tiny punctate right renal stone without hydronephrosis. There is an extensive amount of stool in the colon with mild upstream dilatation of the small bowel. Bladder is distended. Appendix not identified. Calcific atherosclerotic disease is present within the iliofemoral vasculature.. Limited evaluation for lymphadenopathy given the patient's lack of intra-abdominal fat. No acute osseous abnormalities identified. Procedure Note Bong Bruner MD - 11/08/2024 EXAMINATION: CT OF THE ABDOMEN AND PELVIS WITH IV AND ORAL CONTRAST HISTORY: Left lower quadrant abdominal pain COMPARISON: 11/06/2024 and 11/05/2024 CT TECHNIQUE: Computed tomography of the abdomen and pelvis was performed after the uneventful intravenous administration of 72 mL Optiray 350 and administration of oral contrast per protocol contrast according to standard protocol. FINDINGS: Limited views of the lung bases demonstrate scarring or atelectasis in the lower lobes and right middle lobe, unchanged. Calcifications in the spleen similar to prior exams. The pancreas is unremarkable. No focal liver lesion. Patent portal veins. Bile ducts are unremarkable. Gallbladder is unremarkable. There is no free air. Tiny punctate right renal stone without hydronephrosis. There is an extensive amount of stool in the colon with mild upstream dilatation of the small bowel. Bladder is distended. Appendix not identified. Calcific atherosclerotic disease is present within the iliofemoral vasculature.. Limited evaluation for lymphadenopathy given the patient's lack of intra-abdominal fat. No acute osseous abnormalities identified. IMPRESSION: 1. Extensive amount of stool in the colon with mild upstream dilatation of the small bowel. Correlate for signs and symptoms of constipation. Electronically signed by: Bong Bruner MD Ritesh Denson DO IMG CT PROCEDURES Final R esult * eGFR (11/07/2024 6:59 AM INBOUND CUSTOMER SERVICE AGENT) eGFR >90 >=60 mL/min/1. 73 m2 Comment: Interpretive Data Reference Interval Normal >/= 90 mL/min/1.73m2 Mildly decreased* 60 - 89 mL/min/1.73m2 Mildly to moderately decreased 45 - 59 mL/min/1.73m2 Moderately to severely decreased 30 - 44 mL/min/1.73m2 Severely decreased 15 - 29 mL/min/1.73m2 Kidney Failure < 15 mL/min/1.73m2 *Relative to young adult level Estimated glomerular filtration rate is determined by the 2020 CKD-EPI equation recommended by the National Kidney Foundation (A Unifying Approach to GFR Estimation: Recommendations of the NKF-ASK Task Force on Reassessing the Inclusion of Race in Diagnosing Kidney Disease, JASN 2020). The CKD-EPI equation should not be used for patients with unstable renal function and has not been validated in children and those over 70. Current interpretive data was last reviewed 2021. Blood 11/07/2024 6:59 AM INBOUND CUSTOMER SERVICE AGENT 11/07/2024 7:38 AM INBOUND CUSTOMER SERVICE AGENT Ritesh Denson DO LAB BLOOD ORDERABLES Margret l Result [facility] [address] [place] [address] * (ABNORMAL) Basic metabolic panel (11/07/2024 6:59 AM INBOUND CUSTOMER SERVICE AGENT) Pathologist [facility] Sodium 134(L) 135 - 145 mmol/L Potassium, pl 4.7 3.3 - 4.9 mmol/L [facility] Chloride 89(L) 97 - 110 mmol/L [facility] CO2 40(H) 22 - 32 mmol/L [facility] Anion gap 5 2 - 15 mmol/L [facility] BUN 19 6 - 25 mg/dL [facility] Creatinine 0.68(L) 0.80 - 1.30 mg/dL [facility] Glucose 109 70 - 199 mg/dL [facility] Comment: Interpretive Data Fasting glucose >/= 126 mg/dl is diagnostic for diabetes. Fasting is defined as no caloric intake for at least 8 hours. Fasting glucose between 100 mg/dl to 125 mg/dl is diagnostic of prediabetes. In a patient with classic symptoms of hyperglycemia or hyperglycemic crisis, a random glucose >/= 200 mg/dl is diagnostic for diabetes. In the absence of unequivocal hyperglycemia, results should be confirmed by repeat testing. The classification and Diagnosis of Diabetes Diabetes Care 2021; 46: S19-S40. Current interpretive data was last revised 2022. Calcium 9.1 8.5 - 10.3 mg/dL [facility] Blood 11/07/2024 6:59 AM INBOUND CUSTOMER SERVICE AGENT 11/07/2024 7:38 AM INBOUND CUSTOMER SERVICE AGENT us Ritesh Denson DO LAB BLOOD ORDERABLES Margret martin Result [facility] [address] [place] [address] * CT Abdomen Pelvis W Contrast (11/06/2024 5:08 PM INBOUND CUSTOMER SERVICE AGENT) Anatomical Region Laterality Modality Body N/A Computed Tomogra phy 11/07/2024 8:01 AM INBOUND CUSTOMER SERVICE AGENT Impressions 11/07/2024 8:01 AM INBOUND CUSTOMER SERVICE AGENT 1. No acute intra-abdominal pathology. Electronically signed by: Enio Aviles M.D., MPH Narrative 11/07/2024 8:01 AM INBOUND CUSTOMER SERVICE AGENT EXAMINATION: CT ABDOMEN PELVIS W CONTRAST TECHNIQUE: Computed tomographic examination the and pelvis was performed without intravenous contrast. HISTORY: Left lower quadrant pain COMPARISON:11/05/2019 FINDINGS: Visualized lung bases demonstrate patchy areas of groundglass likely representing multifocal pneumonia. Liver, spleen, pancreas gallbladder kidneys adrenal glands are normal. There is no obstruction pneumoperitoneum or free fluid. There is no retroperitoneal mesenteric or pelvic lymphadenopathy. I do not visualize the appendix. There is no findings of acute appendicitis. Osseous windows demonstrate no lytic or blastic lesions. Procedure Note Enio Aviles MD - 11/07/2024 EXAMINATION: CT ABDOMEN PELVIS W CONTRAST TECHNIQUE: Computed tomographic examination the and pelvis was performed without intravenous contrast. HISTORY: Left lower quadrant pain COMPARISON:11/05/2019 FINDINGS: Visualized lung bases demonstrate patchy areas of groundglass likely representing multifocal pneumonia. Liver, spleen, pancreas gallbladder kidneys adrenal glands are normal. There is no obstruction pneumoperitoneum or free fluid. There is no retroperitoneal mesenteric or pelvic lymphadenopathy. I do not visualize the appendix. There is no findings of acute appendicitis. Osseous windows demonstrate no lytic or blastic lesions. IMPRESSION: 1. No acute intra-abdominal pathology. Electronically signed by: Enio Aviles M.D., MPH Ritesh Denson DO IMG CT PROCEDURES Final R esult * eGFR (11/06/2024 4:36 AM INBOUND CUSTOMER SERVICE AGENT) Pathologist [facility] eGFR >90 >=60 mL/min/1. 73 m2 Comment: Interpretive Data Reference Interval Normal >/= 90 mL/min/1.73m2 Mildly decreased* 60 - 89 mL/min/1.73m2 Mildly to moderately decreased 45 - 59 mL/min/1.73m2 Moderately to severely decreased 30 - 44 mL/min/1.73m2 Severely decreased 15 - 29 mL/min/1.73m2 Kidney Failure < 15 mL/min/1.73m2 *Relative to young adult level Estimated glomerular filtration rate is determined by the 2020 CKD-EPI equation recommended by the National Kidney Foundation (A Unifying Approach to GFR Estimation: Recommendations of the NKF-ASK Task Force on Reassessing the Inclusion of Race in Diagnosing Kidney Disease, JASN 202). The CKD-EPI equation should not be used for patients with unstable renal function and has not been validated in children and those over 70. Current interpretive data was last reviewed 2021. Blood 11/06/2024 4:3 6 AM INBOUND CUSTOMER SERVICE AGENT 11/06/2024 4:45 AM INBOUND CUSTOMER SERVICE AGENT Ritesh Denson DO LAB BLOOD ORDERABLES Margret martin Result [facility] [address] [place] [address] * (ABNORMAL) Basic metabolic panel (11/06/2024 4:36 AM INBOUND CUSTOMER SERVICE AGENT) Sodium 135 135 - 145 mmol/L Potassium, pl 4.7 3.3 - 4.9 mmol/L [facility] Chloride 90(L) 97 - 110 mmol/L [facility] CO2 38(H) 22 - 32 mmol/L [facility] Anion gap 7 2 - 15 mmol/L [facility] BUN 16 6 - 25 mg/dL [facility] Creatinine 0.64(L) 0.80 - 1.30 mg/dL [facility] Glucose 112 70 - 199 mg/dL [facility] Comment: Interpretive Data Fasting glucose >/= 126 mg/dl is diagnostic for diabetes. Fasting is defined as no caloric intake for at least 8 hours. Fasting glucose between 100 mg/dl to 125 mg/dl is diagnostic of prediabetes. In a patient with classic symptoms of hyperglycemia or hyperglycemic crisis, a random glucose >/= 200 mg/dl is diagnostic for diabetes. In the absence of unequivocal hyperglycemia, results should be confirmed by repeat testing. The classification and Diagnosis of Diabetes Diabetes Care 2021; 46: S19-S40. Current interpretive data was last revised 2022. Calcium 8.9 8.5 - 10.3 mg/dL [facility] Blood 11/06/2024 4:36 AM INBOUND CUSTOMER SERVICE AGENT 11/06/2024 4:45 AM INBOUND CUSTOMER SERVICE AGENT us Ritesh Denson DO LAB BLOOD ORDERABLES Margret l Result [facility] [address] [place] [address] * CT Abdomen Pelvis W Contrast (11/05/2024 11:10 AM INBOUND CUSTOMER SERVICE AGENT) Anatomical Region Laterality Modality Body N/A Computed Tomogra phy 11/05/2024 1:41 PM INBOUND CUSTOMER SERVICE AGENT Impressions 11/05/2024 1:41 PM INBOUND CUSTOMER SERVICE AGENT Swirled appearance of the jejunal mesentery with loops of jejunum anterior to the transverse colon and in the left lower quadrant. There is an abrupt cut off of an associated mesenteric venous branch vessel with edema throughout the involved small bowel mesentery. The constellation of findings may be seen in the setting of a small bowel internal hernia with associated mesenteric venous insufficiency/branch occlusion. There is no associated obstruction at this time. Further evaluation with CT with oral and intravenous contrast with adequate delay could be helpful to attempt to assess for a relative transition point as well as to confirm mesenteric venous occlusion versus inflow of unopacified blood. Electronically signed by: Micah Lemos M.D. Narrative 11/05/2024 1:41 PM INBOUND CUSTOMER SERVICE AGENT EXAMINATION: Computed tomography of the pelvis with intravenous contrast HISTORY: Left lower quadrant abdominal pain. Acute on chronic. TECHNIQUE: Transaxial computed tomographic images of the pelvis were obtained with intravenous contrast according to the standard protocol after the uneventful administration of 71 mL Opti-Ray 350 intravenous contrast. COMPARISON: None available FINDINGS: Limited views of the lung bases demonstrates bronchial wall thickening with mucous plugging and patchy consolidation in the lower lobes and middle lobe. There is no visualized pericardial effusion. Hepatic parenchymal enhancement normal. Gallbladder normal. No biliary duct dilatation. The pancreas and spleen are normal. Normal adrenals. Symmetric renal enhancement. No hydronephrosis. Urinary bladder is mildly thick-walled out of proportion to the degree of distention. There is still throughout the large bowel. There is no inflammation or obstruction observed. The cecal appendix is not seen. There is no small bowel inflammation or obstruction. There is a swirled appearance of the jejunal mesentery with displacement of jejunal loops into the left lower quadrant as well as anterior to the transverse colon. There is an abrupt termination of a small amount mesenteric venous branch (series 3 image 32 and series 2 images 54 through 60). There is associated edema of the involved small bowel mesentery. Calcification of the abdominal aorta. No aneurysm. There are no suspicious osseous lesions. L5-S1 degenerative disc disease. Procedure Note Micah Lemos MD - 11/05/2024 EXAMINATION: Computed tomography of the pelvis with intravenous contrast HISTORY: Left lower quadrant abdominal pain. Acute on chronic. TECHNIQUE: Transaxial computed tomographic images of the pelvis were obtained with intravenous contrast according to the standard protocol after the uneventful administration of 71 mL Opti-Ray 350 intravenous contrast. COMPARISON: None available FINDINGS: Limited views of the lung bases demonstrates bronchial wall thickening with mucous plugging and patchy consolidation in the lower lobes and middle lobe. There is no visualized pericardial effusion. Hepatic parenchymal enhancement normal. Gallbladder normal. No biliary duct dilatation. The pancreas and spleen are normal. Normal adrenals. Symmetric renal enhancement. No hydronephrosis. Urinary bladder is mildly thick-walled out of proportion to the degree of distention. There is still throughout the large bowel. There is no inflammation or obstruction observed. The cecal appendix is not seen. There is no small bowel inflammation or obstruction. There is a swirled appearance of the jejunal mesentery with displacement of jejunal loops into the left lower quadrant as well as anterior to the transverse colon. There is an abrupt termination of a small amount mesenteric venous branch (series 3 image 32 and series 2 images 54 through 60). There is associated edema of the involved small bowel mesentery. Calcification of the abdominal aorta. No aneurysm. There are no suspicious osseous lesions. L5-S1 degenerative disc disease. IMPRESSION: Swirled appearance of the jejunal mesentery with loops of jejunum anterior to the transverse colon and in the left lower quadrant. There is an abrupt cut off of an associated mesenteric venous branch vessel with edema throughout the involved small bowel mesentery. The constellation of findings may be seen in the setting of a small bowel internal hernia with associated mesenteric venous insufficiency/branch occlusion. There is no associated obstruction at this time. Further evaluation with CT with oral and intravenous contrast with adequate delay could be helpful to attempt to assess for a relative transition point as well as to confirm mesenteric venous occlusion versus inflow of unopacified blood. Electronically signed by: Micah Lemos M.D. Ritesh Denson DO IMG CT PROCEDURES Final R esult * eGFR (11/05/2024 9:53 AM INBOUND CUSTOMER SERVICE AGENT) eGFR >90 >=60 mL/min/1. 73 m2 Comment: Interpretive Data Reference Interval Normal >/= 90 mL/min/1.73m2 Mildly decreased* 60 - 89 mL/min/1.73m2 Mildly to moderately decreased 45 - 59 mL/min/1.73m2 Moderately to severely decreased 30 - 44 mL/min/1.73m2 Severely decreased 15 - 29 mL/min/1.73m2 Kidney Failure < 15 mL/min/1.73m2 *Relative to young adult level Estimated glomerular filtration rate is determined by the 2020 CKD-EPI equation recommended by the National Kidney Foundation (A Unifying Approach to GFR Estimation: Recommendations of the NKF-ASK Task Force on Reassessing the Inclusion of Race in Diagnosing Kidney Disease, JASN 202). The CKD-EPI equation should not be used for patients with unstable renal function and has not been validated in children and those over 70. Current interpretive data was last reviewed 2021. Blood 11/05/2024 9:53 AM INBOUND CUSTOMER SERVICE AGENT 11/05/2024 10:05 AM INBOUND CUSTOMER SERVICE AGENT Ritesh Denson DO LAB BLOOD ORDERABLES Margret l Result [facility] [address] Department [place] [address] * (ABNORMAL) Basic metabolic panel (11/05/2024 9:53 AM INBOUND CUSTOMER SERVICE AGENT) Sodium 137 135 - 145 mmol/L Potassium, pl 4.5 3.3 - 4.9 mmol/L [facility] Chloride 92(L) 97 - 110 mmol/L [facility] CO2 38(H) 22 - 32 mmol/L [facility] Anion gap 7 2 - 15 mmol/L [facility] BUN 11 6 - 25 mg/dL [facility] Creatinine 0.62(L) 0.80 - 1.30 mg/dL [facility] Glucose 87 70 - 199 mg/dL [facility] Comment: Interpretive Data Fasting glucose >/= 126 mg/dl is diagnostic for diabetes. Fasting is defined as no caloric intake for at least 8 hours. Fasting glucose between 100 mg/dl to 125 mg/dl is diagnostic of prediabetes. In a patient with classic symptoms of hyperglycemia or hyperglycemic crisis, a random glucose >/= 200 mg/dl is diagnostic for diabetes. In the absence of unequivocal hyperglycemia, results should be confirmed by repeat testing. The classification and Diagnosis of Diabetes Diabetes Care 2021; 46: S19-S40. Current interpretive data was last revised 2022. Calcium 8.9 8.5 - 10.3 mg/dL [facility] Blood 11/05/2024 9:53 AM INBOUND CUSTOMER SERVICE AGENT 11/05/2024 10:05 AM INBOUND CUSTOMER SERVICE AGENT Ritesh Weiss Janiya DO LAB BLOOD ORDERABLES Margret l Result [facility] [address] [place] [address] * ABORTED CATH CASE INTRA PROC (11/05/2024 9:36 AM INBOUND CUSTOMER SERVICE AGENT) Anatomical Region Laterality Modality X-Ray Angiograph y Narrative 11/10/2024 9:27 PM INBOUND CUSTOMER SERVICE AGENT Procedure was not started, patient refused to lie flat before prep due to back pain. Natalio PIERRE CV CARDIAC CATH PROC EDURES Final Result * eGFR (11/04/2024 4:45 AM INBOUND CUSTOMER SERVICE AGENT) eGFR >90 >=60 mL/min/1. 73 m2 Comment: Interpretive Data Reference Interval Normal >/= 90 mL/min/1.73m2 Mildly decreased* 60 - 89 mL/min/1.73m2 Mildly to moderately decreased 45 - 59 mL/min/1.73m2 Moderately to severely decreased 30 - 44 mL/min/1.73m2 Severely decreased 15 - 29 mL/min/1.73m2 Kidney Failure < 15 mL/min/1.73m2 *Relative to young adult level Estimated glomerular filtration rate is determined by the 2020 CKD-EPI equation recommended by the National Kidney Foundation (A Unifying Approach to GFR Estimation: Recommendations of the NKF-ASK Task Force on Reassessing the Inclusion of Race in Diagnosing Kidney Disease, JASN 2020). The CKD-EPI equation should not be used for patients with unstable renal function and has not been validated in children and those over 70. Current interpretive data was last reviewed 2021. Blood 11/04/2024 4:45 AM INBOUND CUSTOMER SERVICE AGENT 11/04/2024 4:54 AM INBOUND CUSTOMER SERVICE AGENT Mark Greenwood MD LAB BLOOD ORDERABLES Fi nal Result [facility] [address] Department [place] [address] * Differential, auto (11/04/2024 4:45 AM INBOUND CUSTOMER SERVICE AGENT) Neutrophil abs 4.5 1.5 - 6.5 K/cumm Imm gran abs 0.0 0.0 - 0.1 K/cumm [facility] Lymphocyte abs 0.9 0.8 - 3.3 K/cumm [facility] Monocyte abs 0.6 0.2 - 0.8 K/cumm [facility] Eosinophil abs 0.1 0.0 - 0.5 K/cumm [facility] Basophil abs 0.0 0.0 - 0.1 K/cumm [facility] Neutrophil pct 73.3 % [facility] Comment: Interpretive Data Percent cell count reference ranges are not reported, since discordance with absolute values may lead to misinterpretation of CBC data. Current Interpretive Data was last revised on 2017. Imm gran pct 0.0 % [facility] Comment: Interpretive Data Percent cell count reference ranges are not reported, since discordance with absolute values may lead to misinterpretation of CBC data. Current Interpretive Data was last revised on 2017. Lymphocyte pct 15.3 % [facility] Comment: Interpretive Data Percent cell count reference ranges are not reported, since discordance with absolute values may lead to misinterpretation of CBC data. Current Interpretive Data was last revised on 2017. Monocyte pct 9.4 % [facility] Comment: Interpretive Data Percent cell count reference ranges are not reported, since discordance with absolute values may lead to misinterpretation of CBC data. Current Interpretive Data was last revised on 2017. Eosinophil pct 1.3 % [facility] Comment: Interpretive Data Percent cell count reference ranges are not reported, since discordance with absolute values may lead to misinterpretation of CBC data. Current Interpretive Data was last revised on 2017. Basophil pct 0.7 % [facility] Comment: Interpretive Data Percent cell count reference ranges are not reported, since discordance with absolute values may lead to misinterpretation of CBC data. Current Interpretive Data was last revised on 2017. Blood 11/04/2024 4:45 AM INBOUND CUSTOMER SERVICE AGENT 11/04/2024 4:52 AM INBOUND CUSTOMER SERVICE AGENT Mark Greenwood MD LAB BLOOD ORDERABLES Fi nal Result Performing Organization Address [facility] Co de Phone Number [facility] [address] [place] [place] [address] * (ABNORMAL) CBC with auto differential (11/04/2024 4:45 AM INBOUND CUSTOMER SERVICE AGENT) [facility] WBC 6.1 3.8 - 9.9 K/cumm Hgb 13.5 13.0 - 17.5 g/dL [facility] Hct 45.2 38.9 - 50.3 % [facility] Plt 184 150 - 400 K/cumm [facility] MPV 10.9 9.1 - 12.3 fL [facility] RBC 4.58 4.30 - 5.80 M/cumm [facility] MCV 98.7(H) 81.3 - 96.4 fL [facility] MCH 29.5 27.1 - 33.3 pg [facility] MCHC 29.9(L) 32.3 - 35.7 g/dL [facility] RDW CV 13.8 11.1 - 14.9 % [facility] RDW SD 50.5(H) 35.7 - 48.1 fL [facility] NRBC abs 0.00 0.00 - 0.01 K/cumm [facility] Blood 11/04/2024 4:45 AM INBOUND CUSTOMER SERVICE AGENT 11/04/2024 4:52 AM INBOUND CUSTOMER SERVICE AGENT Mark Greenwood MD LAB BLOOD ORDERABLES Fi nal Result Performing Organization Address City/[facility]/ZIP Co de Phone Number [facility] [address] [place] [address] * (ABNORMAL) Basic metabolic panel (11/04/2024 4:45 AM INBOUND CUSTOMER SERVICE AGENT) [facility] Sodium 138 135 - 145 mmol/L Potassium, pl 4.7 3.3 - 4.9 mmol/L [facility] Chloride 92(L) 97 - 110 mmol/L [facility] CO2 39(H) 22 - 32 mmol/L [facility] Anion gap 7 2 - 15 mmol/L [facility] BUN 12 6 - 25 mg/dL [facility] Creatinine 0.78(L) 0.80 - 1.30 mg/dL [facility] Glucose 105 70 - 199 mg/dL [facility] Comment: Interpretive Data Fasting glucose >/= 126 mg/dl is diagnostic for diabetes. Fasting is defined as no caloric intake for at least 8 hours. Fasting glucose between 100 mg/dl to 125 mg/dl is diagnostic of prediabetes. In a patient with classic symptoms of hyperglycemia or hyperglycemic crisis, a random glucose >/= 200 mg/dl is diagnostic for diabetes. In the absence of unequivocal hyperglycemia, results should be confirmed by repeat testing. The classification and Diagnosis of Diabetes Diabetes Care 2021; 46: S19-S40. Current interpretive data was last revised 2022. Calcium 8.5 8.5 - 10.3 mg/dL [facility] Blood 11/04/2024 4:45 AM INBOUND CUSTOMER SERVICE AGENT 11/04/2024 4:54 AM INBOUND CUSTOMER SERVICE AGENT us Mark Greenwood MD LAB BLOOD ORDERABLES Fi nal Result [facility] [address] [place] [address] * Check Sample (11/04/2024 4:42 AM INBOUND CUSTOMER SERVICE AGENT) ABO Rh O Positive MBC HCLL OTHER 11/04/2024 4:42 AM INBOUND CUSTOMER SERVICE AGENT 11/05/2024 6:05 AM INBOUND CUSTOMER SERVICE AGENT us Ritesh Denson DO LAB BLOOD ORDERABLES Margret l Result [facility] [address] [place] [address] [facility] * Lipid panel - Add on lab test (11/03/2024 5:37 PM INBOUND CUSTOMER SERVICE AGENT) Acceptable Yes Blood 11/03/2024 5:37 PM INBOUND CUSTOMER SERVICE AGENT 11/03/2024 5:37 PM INBOUND CUSTOMER SERVICE AGENT Narrative [facility] - 11/03/2024 5:37 PM INBOUND CUSTOMER SERVICE AGENT Name of Test->Lipid panel us Mark Greenwood MD LAB BLOOD ORDERABLES Fi nal Result [facility] [address] [place] [address] * TRANSTHORACIC ECHO (TTE) COMPLETE W DOPPLER/CF WO CONTRAST (11/03/2024 7:32 AM INBOUND CUSTOMER SERVICE AGENT) LV EF 45-50 % CONS SCIMAGE Anatomical Region Laterality Modality Ultrasound 11/03/2024 7:04 AM INBOUND CUSTOMER SERVICE AGENT Narrative 11/03/2024 3:07 PM INBOUND CUSTOMER SERVICE AGENT [facility] [address] [place] [address] ECHOCARDIOGRAM Patient Name: JUSTIN GRAFF R : 1965 (59y 5m) Gender: M Study Date: 11/03/2024 07:04:42 AM Ht(Inch): 66 Wt(Lb): 121.91 BSA: 1.6 Superintendent Compressor Stations: Location: [address] Order Provider: YANNICK RANGEL Heart Rate: 100 BMI: 19.67 BP: 129/84 Ref Provider: YANNICK RANGEL PROCEDURES: Echocardiographic Report: Transthoracic Echocardiogram with complete 2D, M-Mode, Spectral and Color Flow Doppler examination. INDICATIONS: None listed. MEASUREMENTS: 2D/MM Value Range Doppler Value Range IVSd 2D 0.67 cm [ 0.60 - 1.00 ] AV Peak Franco 1 m/s [ 1 - 2 ] LVIDd 2D 5.02 cm [ 4.20 - 5.80 ] AV Peak PG 4.4 mmHg LVIDs 2D 4.33 cm [ 2.50 - 4.00 ] AV Mean PG 3 mmHg LVPWd 2D 0.70 cm [ 0.60 - 1.00 ] AV VTI 16.0 cm Estimated EF 45-50 % KATRINA V max 1.9 cm2 LA Dimen 2D 2.50 cm [ 3.00 - 4.00 ] KATRINA VTI 2.6 cm2 AoR Diam 2D 3.14 cm [ 3.10 - 3.70 ] LVOT Peak Franco 0.63 m/s [ 0.70 - 1.10 ] AoR Diam 2D Index 1.96 LVOT Diam 2.0 cm TAPSE 1.48 cm [ 1.71 - 5.00 ] LVOT Peak PG 2 mmHg LVOT VTI 13.7 cm MV Peak PG 6 mmHg MV Mean PG 3 mmHg MV E Peak Franco 0.5 m/s [ 0.6 - 1.3 ] MV A Peak Franco 1.2 m/s [ 1.0 - 1.2 ] MV PHT 28.0 ms [ 20.0 - 100.0 ] MV Decel Time 132.0 ms [ 104.0 - 258.0 ] MVA PHT 7.8 ms MV E/A Ratio 0.4 TR Peak Franco 2.4 m/s [ 1.0 - 2.8 ] TR Peak PG 24 mmHg RVSP 27.0 mmHg [ 10.0 - 36.0 ] RA Pressure 3.0 mmHg PV Peak Franco 0.9 m/s [ 0.4 - 0.8 ] PV Peak PG 3 mmHg Lat E` Franco 0.05 m/s [ 0.10 - 0.15 ] Sept E' Franco 0.06 m/s [ 0.08 - 0.15 ] E/E` 10.00 RV S' 0.11 m/s 2D/MM Value Range Doppler Value Range - FINDINGS: BP: Blood pressure: 129/84 mmHg. Left Ventricle: There is global hypokinesis. Ejection Fraction is estimated at 45-50 %. Abnormal LV relaxation (Grade I diastolic dysfunction). Mild enlargement of left ventricle. Right Ventricle: Normal right ventricular systolic function. Mild enlargement of right ventricle. Left Atrium: The left atrium is normal in size. Right Atrium: There is mild enlargement of the right atrium. Atrial Septum: Normal appearing atrial septum. Mitral Valve: Normal appearance of the mitral valve leaflets. There is no mitral regurgitation. Aortic Valve: Normal appearance of the aortic valve. Probable tricuspid aortic valve, although not all cusps are well visualized. There is no aortic stenosis. There is no aortic regurgitation. Tricuspid Valve: Normal appearance of the tricuspid leaflets. Trace tricuspid regurgitation. Normal right ventricular systolic pressure. Pulmonic Valve: Grossly normal appearing pulmonic valve. There is no pulmonic stenosis. There is no pulmonic regurgitation. Pericardium: No significant pericardial effusion. Aortic Root and Aorta: Normal caliber aortic root. Normal sized ascending aorta. Aortic Arch: Normal caliber aortic arch. IVC: Normal appearance of the inferior vena cava. CONCLUSIONS: 1. There is global hypokinesis. Ejection Fraction is estimated at 45-50 %. Abnormal LV relaxation (Grade I diastolic dysfunction). Mild enlargement of left ventricle. 2. Normal right ventricular systolic function. Mild enlargement of right ventricle. 3. There is mild enlargement of the right atrium. 4. Normal appearance of the mitral valve leaflets. There is no mitral regurgitation. 5. Normal appearance of the aortic valve. Probable tricuspid aortic valve, although not all cusps are well visualized. There is no aortic stenosis. There is no aortic regurgitation. 6. Normal appearance of the tricuspid leaflets. Trace tricuspid regurgitation. Normal right ventricular systolic pressure. 7. No significant pericardial effusion. Electronically Signed By: Sean Ellis MD, FACC 11/03/2024 3:06:43 PM INBOUND CUSTOMER SERVICE AGENT Procedure Note Sean Ellis MD - 11/03/2024 [facility] [address] [place] [id number] ECHOCARDIOGRAM Patient Name: JUSTIN GRAFF R : 1965 (59y 5m) Gender: M Study Date: 11/03/2024 07:04:42 AM Ht(Inch): 66 Wt(Lb): 121.91 BSA: 1.6 Superintendent Compressor Stations: Location: [id number] Order Provider: YANNICK RANGEL Heart Rate: 100 BMI: 19.67 BP: 129/84 Ref Provider: YANNICK RANGEL PROCEDURES: Echocardiographic Report: Transthoracic Echocardiogram with complete 2D,M-Mode, Spectral and Color Flow Doppler examination. INDICATIONS: None listed. MEASUREMENTS: 2D/MM Value Range Doppler ValueRange IVSd 2D 0.67 cm [ 0.60 - 1.00 ] AV Peak Franco 1 m/s[ 1 - 2 ] LVIDd 2D 5.02 cm [ 4.20 - 5.80 ] AV Peak PG 4.4mmHg LVIDs 2D 4.33 cm [ 2.50 - 4.00 ] AV Mean PG 3mmHg LVPWd 2D 0.70 cm [ 0.60 - 1.00 ] AV VTI 16.0cm Estimated EF 45-50 % KATRINA V max 1.9cm2 LA Dimen 2D 2.50 cm [ 3.00 - 4.00 ] KATRINA VTI 2.6cm2 AoR Diam 2D 3.14 cm [ 3.10 - 3.70 ] LVOT Peak Franco 0.63m/s [ 0.70 - 1.10 ] AoR Diam 2D Index 1.96 LVOT Diam 2.0cm TAPSE 1.48 cm [ 1.71 - 5.00 ] LVOT Peak PG 2mmHg LVOT VTI 13.7 cm MV Peak PG 6 mmHg MV Mean PG 3 mmHg MV E Peak Franco 0.5 m/s [ 0.6 - 1.3 ] MV A Peak Franco 1.2 m/s [ 1.0 - 1.2 ] MV PHT 28.0 ms [ 20.0 - 100.0 ] MV Decel Time 132.0 ms [ 104.0 - 258.0 ] MVA PHT 7.8 ms MV E/A Ratio 0.4 TR Peak Franco 2.4 m/s [ 1.0 - 2.8 ] TR Peak PG 24 mmHg RVSP 27.0 mmHg [ 10.0 - 36.0 ] RA Pressure 3.0 mmHg PV Peak Franco 0.9 m/s [ 0.4 - 0.8 ] PV Peak PG 3 mmHg Lat E` Franco 0.05 m/s [ 0.10 - 0.15 ] Sept E' Franco 0.06 m/s [ 0.08 - 0.15 ] E/E` 10.00 RV S' 0.11 m/s 2D/MM Value Range Doppler ValueRange - FINDINGS: BP: Blood pressure: 129/84 mmHg. Left Ventricle: There is global hypokinesis. Ejection Fraction isestimated at 45-50 %. Abnormal LV relaxation (Grade I diastolic dysfunction). Mild enlargementof left ventricle. Right Ventricle: Normal right ventricular systolic function. Mildenlargement of right ventricle. Left Atrium: The left atrium is normal in size. Right Atrium: There is mild enlargement of the right atrium. Atrial Septum: Normal appearing atrial septum. Mitral Valve: Normal appearance of the mitral valve leaflets. There is nomitral regurgitation. Aortic Valve: Normal appearance of the aortic valve. Probable tricuspidaortic valve, although not all cusps are well visualized. There is no aortic stenosis.There is no aortic regurgitation. Tricuspid Valve: Normal appearance of the tricuspid leaflets. Tracetricuspid regurgitation. Normal right ventricular systolic pressure. Pulmonic Valve: Grossly normal appearing pulmonic valve. There is nopulmonic stenosis. There is no pulmonic regurgitation. Pericardium: No significant pericardial effusion. Aortic Root and Aorta: Normal caliber aortic root. Normal sized ascendingaorta. Aortic Arch: Normal caliber aortic arch. IVC: Normal appearance of the inferior vena cava. CONCLUSIONS: 1. There is global hypokinesis. Ejection Fraction is estimated at 45-50 %.Abnormal LV relaxation (Grade I diastolic dysfunction). Mild enlargement of leftventricle. 2. Normal right ventricular systolic function. Mild enlargement of rightventricle. 3. There is mild enlargement of the right atrium. 4. Normal appearance of the mitral valve leaflets. There is no mitralregurgitation. 5. Normal appearance of the aortic valve. Probable tricuspid aortic valve,although not all cusps are well visualized. There is no aortic stenosis. There is noaortic regurgitation. 6. Normal appearance of the tricuspid leaflets. Trace tricuspidregurgitation. Normal right ventricular systolic pressure. 7. No significant pericardial effusion. Electronically Signed By: Sean Ellis MD, [facility] 11/03/2024 3:06:43 PM INBOUND CUSTOMER SERVICE AGENT Yannick Rangel MD CV ECHO PROCEDURES Final Result * eGFR (11/03/2024 4:29 AM INBOUND CUSTOMER SERVICE AGENT) eGFR >90 >=60 mL/min/1. 73 m2 Comment: Interpretive Data Reference Interval Normal >/= 90 mL/min/1.73m2 Mildly decreased* 60 - 89 mL/min/1.73m2 Mildly to moderately decreased 45 - 59 mL/min/1.73m2 Moderately to severely decreased 30 - 44 mL/min/1.73m2 Severely decreased 15 - 29 mL/min/1.73m2 Kidney Failure < 15 mL/min/1.73m2 *Relative to young adult level Estimated glomerular filtration rate is determined by the 2020 CKD-EPI equation recommended by the National Kidney Foundation (A Unifying Approach to GFR Estimation: Recommendations of the NKF-ASK Task Force on Reassessing the Inclusion of Race in Diagnosing Kidney Disease, JASN 2020). The CKD-EPI equation should not be used for patients with unstable renal function and has not been validated in children and those over 70. Current interpretive data was last reviewed 2021. Blood 11/03/2024 4:29 AM INBOUND CUSTOMER SERVICE AGENT 11/03/2024 5:06 AM INBOUND CUSTOMER SERVICE AGENT us Mark Greenwood MD LAB BLOOD ORDERABLES Fi nal Result [facility] [address] [place] [address] * Lipid panel (11/03/2024 4:29 AM INBOUND CUSTOMER SERVICE AGENT) Cholesterol 141 30 - 199 mg/dL Comment: Interpretive Data Ages < or = 19 years Acceptable: <170 mg/dL Borderline high: 170-199 mg/dL High: >or= 200 mg/dL Ages > or = 20 years Desirable: <200 mg/dL Borderline high: 200-239 mg/dL High: >or= 240 mg/dL Literature References: 1. Expert Panel on Integrated Guidelines for Cardiovascular Health and Risk Reduction in Children and Adolescents. Pediatrics 2011;128:S213 2. NCEP Expert Panel. Circulation 2004;110:227 Current Interpretive Data was last revised on 2018. Triglycerides 55 <=149 mg/dL [facility] Comment: Interpretive Data Ages < or = 9 years Acceptable: <75 mg/dL Borderline high: 75-99 mg/dL High: >or= 100 mg/dL Ages 10 to 20 years Acceptable: <90 mg/dL Borderline high: 90-129 mg/dL High: >or= 130 mg/dL Ages > or = 20 years Desirable: <150 mg/dL Borderline high: 150-199 mg/dL High: 200-499 mg/dL Very high: >or= 499 mg/dL Literature References: 1. Expert Panel on Integrated Guidelines for Cardiovascular Health and Risk Reduction in Children and Adolescents. Pediatrics 2011;128:S213 2. NCEP Expert Panel. Circulation 2004;110:227 Current Interpretive Data was last revised on 2018. HDL 65 >=40 mg/dL [facility] Comment: Interpretive Data Ages < or = 19 years Acceptable: >45 mg/dL Borderline low: 40-45 mg/dL Low: <40 mg/dL Ages > or = 20 years Desirable: >or= 60 mg/dL Low: <40 mg/dL Literature References: 1. Expert Panel on Integrated Guidelines for Cardiovascular Health and Risk Reduction in Children and Adolescents. Pediatrics 2011;128:S213 2. NCEP Expert Panel. Circulation 2004;110:227 Current Interpretive Data was last revised on 2018. LDL, calculated 64 <=129 mg/dL [facility] Comment: Interpretive Data Ages < or = 19 years Acceptable: <110 mg/dL Borderline high: 110-129 mg/dL High: >or= 130 mg/dL Ages > or = 20 years Optimal: <100 mg/dL Near optimal: 100-129 mg/dL Borderline high: 130-159 mg/dL High: >160 mg/dL Calculated using the Mcmahon LDL-C estimating equation. This equation was implemented on 2024. Prior to this date LDL-C was estimated using the Friedewald equation. Literature References: 1. Expert Panel on Integrated Guidelines for Cardiovascular Health and Risk Reduction in Children and Adolescents. Pediatrics 2011;128:S213 2. NCEP Expert Panel. Circulation 2004;110:227 3. Lisandro Starks et al. CHEMO Cardiol. 2019January 15;5(5):540-548. doi: [email or web address] Current Interpretive Data was last revised on 2024. Non-HDL Cholesterol 76 mg/dL [facility] Comment: Interpretive Data Ages < or = 19 years Acceptable: <120 mg/dL Borderline high: 120-144 mg/dL High: >145 mg/dL Ages > or = 20 years When triglycerides are >200 mg/dL, Non-HDL cholesterol is a secondary target of therapy with treatment goals that are 30 mg/dL greater than the LDL cholesterol target. Literature References: 1. Expert Panel on Integrated Guidelines for Cardiovascular Health and Risk Reduction in Children and Adolescents. Pediatrics 2011;128:S213 2. NCEP Expert Panel. Circulation 2004;110:227 Current Interpretive Data was last revised on 2018. Chol/HDL ratio 2 [facility] Blood 11/03/2024 4:29 AM INBOUND CUSTOMER SERVICE AGENT 11/03/2024 5:06 AM INBOUND CUSTOMER SERVICE AGENT Mark Greenwood MD LAB BLOOD ORDERABLES Fi nal Result [facility] [address] Department [place] [address] * (ABNORMAL) Basic metabolic panel (11/03/2024 4:29 AM INBOUND CUSTOMER SERVICE AGENT) Sodium 136 135 - 145 mmol/L Potassium, pl 4.4 3.3 - 4.9 mmol/L [facility] Chloride 95(L) 97 - 110 mmol/L [facility] CO2 35(H) 22 - 32 mmol/L [facility] Anion gap 6 2 - 15 mmol/L [facility] BUN 9 6 - 25 mg/dL [facility] Creatinine 0.68(L) 0.80 - 1.30 mg/dL [facility] Glucose 101 70 - 199 mg/dL [facility] Comment: Interpretive Data Fasting glucose >/= 126 mg/dl is diagnostic for diabetes. Fasting is defined as no caloric intake for at least 8 hours. Fasting glucose between 100 mg/dl to 125 mg/dl is diagnostic of prediabetes. In a patient with classic symptoms of hyperglycemia or hyperglycemic crisis, a random glucose >/= 200 mg/dl is diagnostic for diabetes. In the absence of unequivocal hyperglycemia, results should be confirmed by repeat testing. The classification and Diagnosis of Diabetes Diabetes Care 202; 46: S19-S40. Current interpretive data was last revised 2022. Calcium 8.6 8.5 - 10.3 mg/dL [facility] Blood 11/03/2024 4:29 AM INBOUND CUSTOMER SERVICE AGENT 11/03/2024 5:06 AM INBOUND CUSTOMER SERVICE AGENT us Mark Greenwood MD LAB BLOOD ORDERABLES Fi nal Result [facility] [address] [place] [address] * CT Chest WO Contrast (11/02/2024 1:01 PM INBOUND CUSTOMER SERVICE AGENT) Anatomical Region Laterality Modality Body N/A Computed Tomogra phy 11/02/2024 1:14 PM INBOUND CUSTOMER SERVICE AGENT Impressions 11/02/2024 1:14 PM INBOUND CUSTOMER SERVICE AGENT Within the constraints of the exam as described: 1. Severe emphysema. 2. Tree-in-bud nodularity with bronchial thickening within the lower lobes, right greater than left. These findings likely represent sequelae of aspiration. Repeat CT in one to 3 months can be considered to document resolution. 3. Cardiomegaly. Three-vessel coronary artery disease. Electronically signed by: Johann Khan M.D. Narrative 11/02/2024 1:14 PM INBOUND CUSTOMER SERVICE AGENT EXAMINATION: Computed tomography of the chest without intravenous contrast HISTORY: Radial nerve palsy TECHNIQUE: Transaxial computed tomographic images of the chest were obtained without intravenous contrast according to the standard protocol. COMPARISON: None FINDINGS: There is severe paraseptal and centrilobular emphysema. There is a small right pleural effusion. There is nodular opacities and bronchial thickening noted within the right lower lobe in the dependent portions of the right middle lobe. To a lesser degree, similar findings are present within the left lower lobe. No left-sided pleural effusion. No pneumothorax. Heart size is mildly enlarged. No pericardial effusion. Three-vessel coronary artery disease. There is calcified mediastinal and right hilar lymph nodes consistent prior granulomatous disease. There is anasarca of the soft tissues, which in conjunction of a noncontrast examination mildly constraints evaluation for lymph nodes. Thyroid is unremarkable. Esophagus is unremarkable. Splenic granulomas. Right renal calcifications, possibly nonobstructive nephrolithiasis. No acute process within the upper abdomen. Evaluation of the supraclavicular soft tissues is limited without IV contrast. No acute or aggressive osseous abnormalities. Multilevel degenerative changes. Procedure Note Johann Khan MD - 11/02/2024 EXAMINATION: Computed tomography of the chest without intravenous contrast HISTORY: Radial nerve palsy TECHNIQUE: Transaxial computed tomographic images of the chest were obtained without intravenous contrast according to the standard protocol. COMPARISON: None FINDINGS: There is severe paraseptal and centrilobular emphysema. There is a small right pleural effusion. There is nodular opacities and bronchial thickening noted within the right lower lobe in the dependent portions of the right middle lobe. To a lesser degree, similar findings are present within the left lower lobe. No left-sided pleural effusion. No pneumothorax. Heart size is mildly enlarged. No pericardial effusion. Three-vessel coronary artery disease. There is calcified mediastinal and right hilar lymph nodes consistent prior granulomatous disease. There is anasarca of the soft tissues, which in conjunction of a noncontrast examination mildly constraints evaluation for lymph nodes. Thyroid is unremarkable. Esophagus is unremarkable. Splenic granulomas. Right renal calcifications, possibly nonobstructive nephrolithiasis. No acute process within the upper abdomen. Evaluation of the supraclavicular soft tissues is limited without IV contrast. No acute or aggressive osseous abnormalities. Multilevel degenerative changes. IMPRESSION: Within the constraints of the exam as described: 1. Severe emphysema. 2. Tree-in-bud nodularity with bronchial thickening within the lower lobes, right greater than left. These findings likely represent sequelae of aspiration. Repeat CT in one to 3 months can be considered to document resolution. 3. Cardiomegaly. Three-vessel coronary artery disease. Electronically signed by: Johann Khan M.D. us Mark Greenwood MD IMG CT PROCEDURES Final Result * eGFR (11/02/2024 3:41 AM INBOUND CUSTOMER SERVICE AGENT) eGFR >90 >=60 mL/min/1. 73 m2 Comment: Interpretive Data Reference Interval Normal >/= 90 mL/min/1.73m2 Mildly decreased* 60 - 89 mL/min/1.73m2 Mildly to moderately decreased 45 - 59 mL/min/1.73m2 Moderately to severely decreased 30 - 44 mL/min/1.73m2 Severely decreased 15 - 29 mL/min/1.73m2 Kidney Failure < 15 mL/min/1.73m2 *Relative to young adult level Estimated glomerular filtration rate is determined by the 2020 CKD-EPI equation recommended by the National Kidney Foundation (A Unifying Approach to GFR Estimation: Recommendations of the NKF-ASK Task Force on Reassessing the Inclusion of Race in Diagnosing Kidney Disease, JASN 2020). The CKD-EPI equation should not be used for patients with unstable renal function and has not been validated in children and those over 70. Current interpretive data was last reviewed 2021. Blood 11/02/2024 3:41 AM INBOUND CUSTOMER SERVICE AGENT 11/02/2024 4:01 AM INBOUND CUSTOMER SERVICE AGENT Yannick Rangel MD LAB BLOOD ORDERABLES Final Resul t [facility] [address] Department of Laboratories [place], [place] [id number] * (ABNORMAL) Differential, auto (11/02/2024 3:41 AM INBOUND CUSTOMER SERVICE AGENT) Pathologist [facility] Neutrophil abs 3.9 1.5 - 6.5 K/cumm Imm gran abs 0.0 0.0 - 0.1 K/cumm [facility] Lymphocyte abs 0.7(L) 0.8 - 3.3 K/cumm [facility] Monocyte abs 0.5 0.2 - 0.8 K/cumm [facility] Eosinophil abs 0.1 0.0 - 0.5 K/cumm [facility] Basophil abs 0.0 0.0 - 0.1 K/cumm [facility] Neutrophil pct 75.0 % [facility] Comment: Interpretive Data Percent cell count reference ranges are not reported, since discordance with absolute values may lead to misinterpretation of CBC data. Current Interpretive Data was last revised on 2017. Imm gran pct 0.2 % [facility] Comment: Interpretive Data Percent cell count reference ranges are not reported, since discordance with absolute values may lead to misinterpretation of CBC data. Current Interpretive Data was last revised on 2017. Lymphocyte pct 14.1 % [facility] Comment: Interpretive Data Percent cell count reference ranges are not reported, since discordance with absolute values may lead to misinterpretation of CBC data. Current Interpretive Data was last revised on 2017. Monocyte pct 8.6 % [facility] Comment: Interpretive Data Percent cell count reference ranges are not reported, since discordance with absolute values may lead to misinterpretation of CBC data. Current Interpretive Data was last revised on 2017. Eosinophil pct 1.5 % [facility] Comment: Interpretive Data Percent cell count reference ranges are not reported, since discordance with absolute values may lead to misinterpretation of CBC data. Current Interpretive Data was last revised on 2017. Basophil pct 0.6 % [facility] Comment: Interpretive Data Percent cell count reference ranges are not reported, since discordance with absolute values may lead to misinterpretation of CBC data. Current Interpretive Data was last revised on 2017. Blood 11/02/2024 3:41 AM INBOUND CUSTOMER SERVICE AGENT 11/02/2024 4:01 AM INBOUND CUSTOMER SERVICE AGENT us Yannick Rangel MD LAB BLOOD ORDERABLES Final Resul t [facility] [address] Department [place] [address] * Thyroid Function [place] (11/02/2024 3:41 AM INBOUND CUSTOMER SERVICE AGENT) TSH 2.02 0.30 - 4.20 mcIUnit/mL Blood 11/02/2024 3:41 AM INBOUND CUSTOMER SERVICE AGENT 11/02/2024 4:01 AM INBOUND CUSTOMER SERVICE AGENT Yannick Rangel MD LAB BLOOD ORDERABLES Final Resul t Performing Organization Address [facility] Co de Phone Number [facility] [address] Department of [employer] [place], [place] [id number] * (ABNORMAL) CBC with auto differential (11/02/2024 3:41 AM INBOUND CUSTOMER SERVICE AGENT) [facility] WBC 5.2 3.8 - 9.9 K/cumm Hgb 12.1(L) 13.0 - 17.5 g/dL [facility] Hct 40.3 38.9 - 50.3 % [facility] Plt 179 150 - 400 K/cumm [facility] MPV 10.9 9.1 - 12.3 fL [facility] RBC 4.08(L) 4.30 - 5.80 M/cumm [facility] MCV 98.8(H) 81.3 - 96.4 fL [facility] MCH 29.7 27.1 - 33.3 pg [facility] MCHC 30.0(L) 32.3 - 35.7 g/dL [facility] RDW CV 13.8 11.1 - 14.9 % [facility] RDW SD 50.0(H) 35.7 - 48.1 fL [facility] NRBC abs 0.00 0.00 - 0.01 K/cumm [facility] Blood 11/02/2024 3:41 AM INBOUND CUSTOMER SERVICE AGENT 11/02/2024 4:01 AM INBOUND CUSTOMER SERVICE AGENT us Yannick Rangel MD LAB BLOOD ORDERABLES Final Resul t Performing Organization Address City/[facility]/ZIP Co de Phone Number [facility] [address] Department of [employer] [place], [place] [id number] * Hepatitis C antibody Blood Blood, Venous (11/02/2024 3:41 AM INBOUND CUSTOMER SERVICE AGENT) [facility] Hep C Ab Nonreactive Nonreactive Comment: Interpretive Data Nonreactive: Antibodies to HCV not detected. Does NOT exclude the possibility of recent exposure to HCV. Equivocal: Equivocal for HCV antibodies. Supplemental molecular testing will be automatically performed to determine infection status in accordance with current CDC screening recommendations. Reactive: Positive for HCV antibodies. This may represent current or past HCV infection. Supplemental molecular testing will be automatically performed to determine current infection status in accordance with current CDC screening recommendations. Interpretive data was last revised on 2019. Blood Venous blood specimen / Unknown 11/02/2024 3:41 AM INBOUND CUSTOMER SERVICE AGENT 11/02/2024 4:01 AM INBOUND CUSTOMER SERVICE AGENT Yannick Rangel MD LAB MICROBIOLOGY - GENERAL ORDER [place] Final Result Performing Organization Address City/[facility]/ZIP Co de Phone Number [facility] [address] [place] [address] * Vitamin B12 (11/02/2024 3:41 AM INBOUND CUSTOMER SERVICE AGENT) [facility] Vitamin B12 552 230 - 1,250 pg/mL Blood 11/02/2024 3:41 AM INBOUND CUSTOMER SERVICE AGENT 11/02/2024 4:01 AM INBOUND CUSTOMER SERVICE AGENT Yannick Rangel MD LAB BLOOD ORDERABLES Final Resul t Performing Organization Address [facility] Co de Phone Number [facility] [address] [place] [address] * (ABNORMAL) Basic metabolic panel (11/02/2024 3:41 AM INBOUND CUSTOMER SERVICE AGENT) [facility] Sodium 138 135 - 145 mmol/L Potassium, pl 4.6 3.3 - 4.9 mmol/L [facility] Chloride 95(L) 97 - 110 mmol/L [facility] CO2 35(H) 22 - 32 mmol/L [facility] Anion gap 8 2 - 15 mmol/L [facility] BUN 4(L) 6 - 25 mg/dL [facility] Creatinine 0.68(L) 0.80 - 1.30 mg/dL [facility] Glucose 82 70 - 199 mg/dL [facility] Comment: Interpretive Data Fasting glucose >/= 126 mg/dl is diagnostic for diabetes. Fasting is defined as no caloric intake for at least 8 hours. Fasting glucose between 100 mg/dl to 125 mg/dl is diagnostic of prediabetes. In a patient with classic symptoms of hyperglycemia or hyperglycemic crisis, a random glucose >/= 200 mg/dl is diagnostic for diabetes. In the absence of unequivocal hyperglycemia, results should be confirmed by repeat testing. The classification and Diagnosis of Diabetes Diabetes Care 2021; 46: S19-S40. Current interpretive data was last revised 2022. Calcium 8.5 8.5 - 10.3 mg/dL [facility] Blood 11/02/2024 3:41 AM INBOUND CUSTOMER SERVICE AGENT 11/02/2024 4:01 AM INBOUND CUSTOMER SERVICE AGENT Yannick Rangel MD LAB BLOOD ORDERABLES Final Resul t [facility] [address] [place] [address] * US Vein Duplex Lower Extremity Bilateral Complete (11/01/2024 11:03 PM INBOUND CUSTOMER SERVICE AGENT) Anatomical Region Laterality Modality Vascular Bilateral Ultrasound 11/02/2024 11:5 4 AM INBOUND CUSTOMER SERVICE AGENT Impressions 11/02/2024 11:54 AM INBOUND CUSTOMER SERVICE AGENT 1. This study has no evidence of deep vein thrombosis in the right lower extremity. 2. This study has no evidence of deep vein thrombosis in the left lower extremity. 3. The pulsatile quality of venous flow may be indicative of elevated central venous pressures. Electronically signed by: Edgar Luna MD Narrative 11/02/2024 11:54 AM INBOUND CUSTOMER SERVICE AGENT Lower Extremity Vein Duplex Bilateral DATE: 11/01/2024 9:00 PM EXAM: Venous duplex imaging of bilateral lower extremities. INDICATION: Leg swelling. COMPARISON: None Bilateral common femoral vein, femoral vein, popliteal vein, peroneal veins and posterior tibial veins were all assessed for compressibility and patency. FINDINGS: RIGHT: IMAGE QUALITY: Good. FILLING DEFECTS: There is no evidence of filling defects in the deep veins of the right lower extremity. COMPRESSIBILITY: Compressibility is normal. DOPPLER EVALUATION: Flow can be augmented and is phasic to respiration. However, pulsatile quality was noted to the venous flow. REFLUX FLOW: None. INCIDENTAL FINDINGS: None. LEFT: IMAGE QUALITY: Good. FILLING DEFECTS: There is no evidence of filling defects in the deep veins of the left lower extremity. COMPRESSIBILITY: Compressibility is normal. DOPPLER EVALUATION: Flow can be augmented and is phasic to respiration. However, there is a pulsatile quality to venous flow. REFLUX FLOW: None. INCIDENTAL FINDINGS: None. Procedure Note Edgar Luna MD - 11/02/2024 Lower Extremity Vein Duplex Bilateral DATE: 11/01/2024 9:00 PM EXAM: Venous duplex imaging of bilateral lower extremities. INDICATION: Leg swelling. COMPARISON: None Bilateral common femoral vein, femoral vein, popliteal vein, peroneal veins and posterior tibial veins were all assessed for compressibility and patency. FINDINGS: RIGHT: IMAGE QUALITY: Good. FILLING DEFECTS: There is no evidence of filling defects in the deep veins of the right lower extremity. COMPRESSIBILITY: Compressibility is normal. DOPPLER EVALUATION: Flow can be augmented and is phasic to respiration. However, pulsatile quality was noted to the venous flow. REFLUX FLOW: None. INCIDENTAL FINDINGS: None. LEFT: IMAGE QUALITY: Good. FILLING DEFECTS: There is no evidence of filling defects in the deep veins of the left lower extremity. COMPRESSIBILITY: Compressibility is normal. DOPPLER EVALUATION: Flow can be augmented and is phasic to respiration. However, there is a pulsatile quality to venous flow. REFLUX FLOW: None. INCIDENTAL FINDINGS: None. IMPRESSION: 1. This study has no evidence of deep vein thrombosis in the right lower extremity. 2. This study has no evidence of deep vein thrombosis in the left lower extremity. 3. The pulsatile quality of venous flow may be indicative of elevated central venous pressures. Electronically signed by: Edgar Luna MD Yannick Rangel MD [facility] US PROCEDURES Final Result * (ABNORMAL) Troponin T high-sensitivity 6-hour (11/01/2024 10:56 PM INBOUND CUSTOMER SERVICE AGENT) Trop T hs 23(H) <=22 ng/L Comment: Interpretive Data For further hscTnT resources including the diagnostic algorithm and an aid in interpretation, copy and paste this link: https://nrl.testcatalog.org/show/hsTrop Current Interpretive Data last revised 2020. Trop T hs delta -4 ng/L [facility] Trop T hs interp Insignificant [facility] Blood 11/01/2024 10:5 6 PM INBOUND CUSTOMER SERVICE AGENT 11/01/2024 11:14 PM INBOUND CUSTOMER SERVICE AGENT Hilton Salgado DO LAB BLOOD ORDERABLES Final Result Performing Organization Address City/[facility]/ZIP Co de Phone Number [facility] [address] [place] [address] * HIV 1/2 Antibody plus p24 Antigen Blood (11/01/2024 9:19 PM INBOUND CUSTOMER SERVICE AGENT) [facility] HIV 1/2 ab + p24 ag Nonreactive Nonreactive Comment: Nonreactive for HIV-1 antigen and HIV-1/HIV-2 antibodies. No laboratory evidence of HIV infection. If acute HIV infection is suspected, consider testing for HIV-1 RNA. Blood 11/01/2024 9:19 PM INBOUND CUSTOMER SERVICE AGENT 11/01/2024 9:25 PM INBOUND CUSTOMER SERVICE AGENT Yannick Rangel MD LAB MICROBIOLOGY - GENERAL ORDER BAHMAN Final Result Performing Organization Address [facility] Co de Phone Number [facility] [address] [place] [address] * MRSA Only (Staphylococcus aureus) PCR Nasal (11/01/2024 9:19 PM INBOUND CUSTOMER SERVICE AGENT) [facility] PCR Scrn, Methicillin resistant Staphylococcus aureus (MRSA) Not Detected Not Detected Comment: Interpretive Data Testing performed using Nucleic Acid Amplification with the [employer] Xpert MRSA NxG Assay. This assay detects target DNA from mecA, mecC and the SCCmec insertion site of Staphylococcus aureus using Real-Time PCR and has been cleared by the FDA. Performance characteristics have been verified by the [facility]. Current Interpretive Data was last revised on 2023 Nasal 11/01/2024 9:19 PM INBOUND CUSTOMER SERVICE AGENT 11/01/2024 9:35 PM INBOUND CUSTOMER SERVICE AGENT us Yannick Rangel MD LAB MICROBIOLOGY - GENERAL ORDER BAHMAN Final Result Performing Organization Address [facility]/ZIP Co de Phone Number [facility] [address] [place] [address] * (ABNORMAL) Troponin T high-sensitivity 4-hour (11/01/2024 8:36 PM INBOUND CUSTOMER SERVICE AGENT) Trop T hs 23(H) <=22 ng/L Comment: Interpretive Data For further hscTnT resources including the diagnostic algorithm and an aid in interpretation, copy and paste this link: https://nrl.testcatalog.org/show/hsTrop Current Interpretive Data last revised 2020. Trop T hs delta -4 ng/L [facility] Trop T hs interp Insignificant [facility] Blood 11/01/2024 8:36 PM INBOUND CUSTOMER SERVICE AGENT 11/01/2024 8:51 PM INBOUND CUSTOMER SERVICE AGENT Hilton Salgado DO LAB BLOOD ORDERABLES Final Result Performing Organization Address [facility] Co de Phone Number [facility] [address] [place] [address] * Urinalysis reflex to microscopic and culture Urine (11/01/2024 8:36 PM INBOUND CUSTOMER SERVICE AGENT) Color, ur Yellow Yellow Clarity, ur Clear Clear [facility] Specific gravity, ur 1.014 1.003 - 1.030 [facility] pH, urine 7.5 [facility] Comment: Interpretive Data U rine pH is affected by diet, medications, systemic acid-base disturbances, and renal tubular function. pH may affect urinary stone formation. For example, urine pH below 6.0 may help reduce the tendency for calcium phosphate stones and pH greater than 6.0 may reduce the tendency for uric acid stone formation. Source: [facility] Current Interpretive Data was last revised on 2017 Protein, ur ql Negative Negative [facility] Glucose, ur ql Negative Negative [facility] Ketones, ur Negative Negative [facility] Bilirubin, ur Negative Negative [facility] Blood, ur Negative Negative [facility] Urobilinogen, ur <2.0 <2.0 mg/dL [facility] Nitrite, ur Negative Negative [facility] Leukocyte esterase, ur Negative Negative [facility] UA reflex comment Reflex conditions for microscopic UA and culture not met. [facility] Urine 11/01/2024 8:36 PM INBOUND CUSTOMER SERVICE AGENT 11/01/2024 8:45 PM INBOUND CUSTOMER SERVICE AGENT us Atif Acosta MD LAB MICROBIOLOGY - GENERAL O RDERABLES Final Result [facility] [address] [place] [address] * (ABNORMAL) Drugs of Abuse Screen, Urine without Confirmation (11/01/2024 8:36 PM INBOUND CUSTOMER SERVICE AGENT) Amphetamine, ur Screen Positive, presumptive (A) CutOff 500ng/mL Comment: Interpretive Data - Amphetamines: Samples containing greater than 500 ng/mL d-methamphetamine or other cross-reacting amphetamine compounds are reported as positive. Amphetamine immunoassays are subject to significant false positive rates due to cross-reactivity of non-amphetamine drugs. Confirmatory testing required for definitive results. Current Interpretive Data was last reviewed 2023. Barbiturates, ur Not Detected CutOff 200ng/mL [facility] Comment: Interpretive Data - Barbiturates: Samples containing greater than 200 ng/mL secobarbital or other cross-reacting barbiturate compounds are reported as positive. False positive and false negative results are possible. Confirmatory testing required for definitive results. Current Interpretive Data was last reviewed 2023. Benzodiazepines, ur Not Detected CutOff 100ng/mL [facility] Comment: Interpretive Data - Benzodiazepines: Samples containing greater than 100 ng/mL nordiazepam or other cross-reacting compounds are reported as positive. False positive and false negative results are possible. Confirmatory testing required for definitive results. Current Interpretive Data was last reviewed 2023. Cannabinoids, ur Not Detected CutOff 50 ng/mL [facility] Comment: Interpretive Data - Cannabinoids: Samples containing greater than 50 ng/mL delta-9 THC -COOH or other cross- reacting compounds are reported as positive. False positive and false negative results are possible. Confirmatory testing required for definitive results. Current Interpretive Data was last reviewed 2023. Cocaine, ur Not Detected CutOff 150ng/mL [facility] Comment: Interpretive Data - Cocaine: Samples containing greater than 150 ng/mL benzoylecgonine or other cross- reacting compounds are reported as positive. False positive and false negative results are possible. Confirmatory testing required for definitive results. Current Interpretive Data was last reviewed 2023. Fentanyl, Ur Not Detected CutOff 5 ng/mL [facility] Comment: Interpretive Data - Fentanyl: Samples containing greater than 5 ng/mL norfentanyl, fentanyl, or other cross-reacting fentanyl compounds are reported as positive. False positive and false negative results are possible. Confirmatory testing required for definitive results. Current Interpretive Data was last reviewed 2023. Methadone, ur Not Detected CutOff 300ng/mL [facility] Comment: Interpretive Data - Methadone: Samples containing greater than 300 ng/mL d,l-methadone or other cross-reacting compounds are reported as positive. False positive and false negative results are possible. Confirmatory testing required for definitive results. Current Interpretive Data was last reviewed 2023. Opiates, ur Not Detected CutOff 300ng/mL [facility] Comment: Interpretive Data - Opiates: Samples containing greater than 300 ng/mL morphine or other cross-reacting compounds are reported as positive. False positive and false negative results are possible. Confirmatory testing required for definitive results. Current Interpretive Data was last reviewed 2023. Oxycodone, ur Not Detected CutOff 100ng/mL [facility] Comment: Interpretive Data - Oxycodone: Samples containing greater than 100 ng/mL oxycodone or other cross-reacting compounds are reported as positive. False positive and false negative results are possible. Confirmatory testing required for definitive results. Current Interpretive Data was last reviewed 2023. Phencyclidine, ur Not Detected CutOff 25 ng/mL [facility] Comment: Interpretive Data - Phencyclidine: Samples containing greater than 25 ng/mL phencyclidine or other cross-reacting compounds are reported as positive. False positive and false negative results are possible. Confirmatory testing required for definitive results. Current Interpretive Data was last reviewed 2023. Urine Creatinine 59 mg/dL [facility] Comment: Interpretive Data Urine Creatinine: < 10 mg/dL is extremely dilute = or > 10 but < 20 mg/dL is dilute = or > 20 mg/dL is normal Current Interpretive Data was last revised on 2017. Urine 11/01/2024 8:36 PM INBOUND CUSTOMER SERVICE AGENT 11/01/2024 8:52 PM INBOUND CUSTOMER SERVICE AGENT Narrative [facility] 11/01/2024 9:21 PM INBOUND CUSTOMER SERVICE AGENT Drug of Abuse screening is performed by immunoassay for medical purposes only. This is not to be used for Pain Management purposes. us Atif Acosta MD LAB URINE ORDERABLES Final R esult [facility] [address] [place] [address] * CT Head WO Contrast (11/01/2024 8:16 PM INBOUND CUSTOMER SERVICE AGENT) Anatomical Region Laterality Modality Head and Neck N/A Computed Tomogra phy 11/01/2024 8:12 PM INBOUND CUSTOMER SERVICE AGENT Impressions 11/01/2024 10:18 PM INBOUND CUSTOMER SERVICE AGENT 1. No acute intracranial abnormality. 2. If there is continued clinical concern, dedicated MRI could be obtained for further evaluation. For the purposes of quality improvement coordinator (rn), this study was initially interpreted by teleradiology. There is no significant discrepancy. Electronically signed by: Fabien Jane M.D. Narrative 11/01/2024 10:18 PM INBOUND CUSTOMER SERVICE AGENT EXAMINATION: CT head without contrast HISTORY: New right wrist drop. Evaluate for embolic stroke. TECHNIQUE: CT of the head was performed with images acquired from skull base to vertex without intravenous contrast. Portions of the study are degraded by motion. COMPARISON: None. FINDINGS: There is no acute intracranial hemorrhage. Ventricles are of normal size and morphology. No mass effect or midline shift is present. The rodas-white matter differentiation is normal. The visualized portions of the orbits are normal. The visualized portions of the mastoids are normal. The visualized portions of the paranasal sinuses are normal. No fractures are identified. Procedure Note Fabien Jane MD - 11/01/2024 EXAMINATION: CT head without contrast HISTORY: New right wrist drop. Evaluate for embolic stroke. TECHNIQUE: CT of the head was performed with images acquired from skull base to vertex without intravenous contrast. Portions of the study are degraded by motion. COMPARISON: None. FINDINGS: There is no acute intracranial hemorrhage. Ventricles are of normal size and morphology. No mass effect or midline shift is present. The rodas-white matter differentiation is normal. The visualized portions of the orbits are normal. The visualized portions of the mastoids are normal. The visualized portions of the paranasal sinuses are normal. No fractures are identified. IMPRESSION: 1. No acute intracranial abnormality. 2. If there is continued clinical concern, dedicated MRI could be obtained for further evaluation. For the purposes of quality improvement coordinator (rn), this study was initially interpreted by teleradiology. There is no significant discrepancy. Electronically signed by: Fabien Jane M.D. Atif Acosta MD IMG CT PROCEDURES Final Resu lt * (ABNORMAL) Troponin T high-sensitivity 2-hour (11/01/2024 7:00 PM INBOUND CUSTOMER SERVICE AGENT) Pathologist [facility] Trop T hs 23(H) <=22 ng/L Comment: Interpretive Data For further hscTnT resources including the diagnostic algorithm and an aid in interpretation, copy and paste this link: https://nrl.testcatalog.org/show/hsTrop Current Interpretive Data last revised 2020. Trop T hs delta -4 ng/L [facility] Trop T hs interp Insignificant [facility] Blood 11/01/2024 7:00 PM INBOUND CUSTOMER SERVICE AGENT 11/01/2024 7:35 PM INBOUND CUSTOMER SERVICE AGENT Hilton Salgado DO LAB BLOOD ORDERABLES Final Result [facility] [address] Department [place] [address] * Influenza A/B, RSV, and COVID-19 PCR Nasopharyngeal (11/01/2024 7:00 PM INBOUND CUSTOMER SERVICE AGENT) Pathologist [facility] COVID-19 RNA Negative Negative Influenza A RNA Negative Negative [facility] Influenza B RNA Negative Negative [facility] RSV RNA Negative Negative [facility] Comment: Interpretive data: Testing performed by [facility]. This test is performed using the [employer] Xpert Xpress CoV-2/Flu/RSV plus assay. This is a multiplex, real-time reverse transcriptase PCR assay intended for the qualitative detection of nucleic acid from SARS-CoV-2, influenza A, influenza B, and respiratory syncytial virus. This assay has been cleared by the [place] Food and Drug administration. The performance characteristics have been verified by the [facility]. Results must be considered in the clinical context, and a negative result does not rule out infection. Interpretive Data last revised 2023 Nasopharyngeal 11/01/2024 7: 00 PM INBOUND CUSTOMER SERVICE AGENT 11/01/2024 7:10 PM INBOUND CUSTOMER SERVICE AGENT Narrative [facility] - 11/01/2024 7:55 PM INBOUND CUSTOMER SERVICE AGENT Is the Patient experiencing symptoms consistent with COVID?->Yes Odin Newell MD LAB MICROBIOLOGY - GENERAL O RDERABLES Final Result [facility] [address] [place] [address] * Blood culture Blood Peripheral (11/01/2024 7:00 PM INBOUND CUSTOMER SERVICE AGENT) Report Final Report: No growth Blood (Peripheral) 11/01/2024 7:00 PM INBOUND CUSTOMER SERVICE AGENT 11/01/2024 7:13 PM INBOUND CUSTOMER SERVICE AGENT Narrative [facility] - 11/07/2024 7:01 AM INBOUND CUSTOMER SERVICE AGENT From a different site than #1. Draw Blood cultures before administration of Antibiotics Collection->Peripheral Interpretive Data 1. Blood cultures are incubated and monitored continuously for 5 days (120 hours). The first negative report is issued within 24 hours of receipt in the laboratory. 2. All positive cultures are resulted and called to physicians/care providers as soon as they are detected. 3. A rapid molecular test for organism identification may be performed using the [employer] Blood Culture Identification panel. This assay detects microbial DNA in a blood culture broth. This assay has been cleared by the [facility] Food and Drug Administration and its performance characteristics have been verified by the [facility]. Interpretive data was last revised on October 19, 2022. Atif Acosta MD LAB MICROBIOLOGY - GENERAL O RDERABLES Final Result Performing Organization Address [facility] Co de Phone Number [facility] [address] [place] [address] * Blood culture Blood Peripheral (11/01/2024 7:00 PM INBOUND CUSTOMER SERVICE AGENT) Report Final Report: No growth Blood (Peripheral) 11/01/2024 7:00 PM INBOUND CUSTOMER SERVICE AGENT 11/01/2024 7:13 PM INBOUND CUSTOMER SERVICE AGENT Narrative [facility] - 11/07/2024 7:01 AM INBOUND CUSTOMER SERVICE AGENT Draw Blood cultures before administration of Antibiotics Collection->Peripheral Interpretive Data 1. Blood cultures are incubated and monitored continuously for 5 days (120 hours). The first negative report is issued within 24 hours of receipt in the laboratory. 2. All positive cultures are resulted and called to physicians/care providers as soon as they are detected. 3. A rapid molecular test for organism identification may be performed using the [employer] Blood Culture Identification panel. This assay detects microbial DNA in a blood culture broth. This assay has been cleared by the [place] Food and Drug Administration and its performance characteristics have been verified by the [facility]. Interpretive data was last revised on October 19, 2022. Atif Acosta MD LAB MICROBIOLOGY - GENERAL O RDERABLES Final Result Performing Organization Address [facility] Co de Phone Number [facility] [address] Department of [place] [place], [place] [id number] * (ABNORMAL) Troponin T high-sensitivity series (baseline, 2hr, 4hr, 6hr) (11/01/2024 4:57 PM INBOUND CUSTOMER SERVICE AGENT) Trop T hs 27(H) <=22 ng/L Comment: Interpretive Data For further hscTnT resources including the diagnostic algorithm and an aid in interpretation, copy and paste this link: https://nrl.testcatalog.org/show/hsTrop Current Interpretive Data last revised 2020. Blood 11/01/2024 4:57 PM INBOUND CUSTOMER SERVICE AGENT 11/01/2024 5:12 PM INBOUND CUSTOMER SERVICE AGENT Hilton Salgado DO LAB BLOOD ORDERABLES Final Result Performing Organization Address [facility]/ZIP Co de Phone Number [facility] [address] Department of [employer] [place], [place] [id number] * eGFR (11/01/2024 4:57 PM INBOUND CUSTOMER SERVICE AGENT) Pathologist [facility] eGFR >90 >=60 mL/min/1. 73 m2 Comment: Interpretive Data Reference Interval Normal >/= 90 mL/min/1.73m2 Mildly decreased* 60 - 89 mL/min/1.73m2 Mildly to moderately decreased 45 - 59 mL/min/1.73m2 Moderately to severely decreased 30 - 44 mL/min/1.73m2 Severely decreased 15 - 29 mL/min/1.73m2 Kidney Failure < 15 mL/min/1.73m2 *Relative to young adult level Estimated glomerular filtration rate is determined by the 2020 CKD-EPI equation recommended by the National Kidney Foundation (A Unifying Approach to GFR Estimation: Recommendations of the NKF-ASK Task Force on Reassessing the Inclusion of Race in Diagnosing Kidney Disease, JASN 202). The CKD-EPI equation should not be used for patients with unstable renal function and has not been validated in children and those over 70. Current interpretive data was last reviewed 2021. Blood 11/01/2024 4:57 PM INBOUND CUSTOMER SERVICE AGENT 11/01/2024 5:12 PM INBOUND CUSTOMER SERVICE AGENT Hilton Salgado DO LAB BLOOD ORDERABLES Final Result Performing Organization Address City/[facility]/ZIP Co de Phone Number [facility] [address] Department of [employer] [place], [place] [id number] * (ABNORMAL) Differential, auto (11/01/2024 4:57 PM INBOUND CUSTOMER SERVICE AGENT) Neutrophil abs 4.4 1.5 - 6.5 K/cumm Imm gran abs 0.0 0.0 - 0.1 K/cumm [facility] Lymphocyte abs 0.7(L) 0.8 - 3.3 K/cumm [facility] Monocyte abs 0.5 0.2 - 0.8 K/cumm [facility] Eosinophil abs 0.1 0.0 - 0.5 K/cumm [facility] Basophil abs 0.0 0.0 - 0.1 K/cumm [facility] Neutrophil pct 78.4 % [facility] Comment: Interpretive Data Percent cell count reference ranges are not reported, since discordance with absolute values may lead to misinterpretation of CBC data. Current Interpretive Data was last revised on 2017. Imm gran pct 0.2 % [facility] Comment: Interpretive Data Percent cell count reference ranges are not reported, since discordance with absolute values may lead to misinterpretation of CBC data. Current Interpretive Data was last revised on 2017. Lymphocyte pct 11.7 % [facility] Comment: Interpretive Data Percent cell count reference ranges are not reported, since discordance with absolute values may lead to misinterpretation of CBC data. Current Interpretive Data was last revised on 2017. Monocyte pct 8.1 % [facility] Comment: Interpretive Data Percent cell count reference ranges are not reported, since discordance with absolute values may lead to misinterpretation of CBC data. Current Interpretive Data was last revised on 2017. Eosinophil pct 1.1 % [facility] Comment: Interpretive Data Percent cell count reference ranges are not reported, since discordance with absolute values may lead to misinterpretation of CBC data. Current Interpretive Data was last revised on 2017. Basophil pct 0.5 % [facility] Comment: Interpretive Data Percent cell count reference ranges are not reported, since discordance with absolute values may lead to misinterpretation of CBC data. Current Interpretive Data was last revised on 2017. Blood 11/01/2024 4:57 PM INBOUND CUSTOMER SERVICE AGENT 11/01/2024 5:12 PM INBOUND CUSTOMER SERVICE AGENT us Hilton Salgado DO LAB BLOOD ORDERABLES Final Result Performing Organization Address [facility] Co de Phone Number [facility] [address] [place] [address] * (ABNORMAL) Pro B-type natriuretic peptide (11/01/2024 4:57 PM INBOUND CUSTOMER SERVICE AGENT) NT-proBNP 7,636(H) <=300 pg/mL Comment: Interpretive Comments: A. Dyspnea in Acute Care Setting All Ages: < 300 pg/ml, acute heart failure unlikely. < 50 yrs: 300 - 450 pg/ml, further investigation warranted. > 450 pg/ml, acute heart failure likely. 50 - 74 yrs: 300 - 900 pg/ml, further investigation warranted. > 900 pg/ml, acute heart failure likely . > or = 75 yrs: 450 - 1800 pg/ml, further investigation warranted. > 1800 pg/ml, acute heart failure likely. B. Non-acute Setting < 75 yrs < 125 pg/ml, rules out heart failure. > or = 125 pg/ml, further investigation warranted. > or = 75 yrs < 450 pg/ml, rules out heart failure. > or = 450 pg/ml, further investigation warranted. - Knowledge of each individual patient's NT-proBNP range may be more useful than using similar cut-points for every patient. Please note that marked elevations in NT-proBNP levels may be observed in state other than Left Ventricular Congestive Failure, including: acute coronary syndromes, right heart strain/failure (including pulmonary embolism and cor pulmonale), critical illness, renal failure, as well as advanced age. - References: 1. Gregory MOURA et.al. Eur Heart J. 2006:27:330-337. 2. Светлана RW, Maru RODAS. J. AM James Cardiol: Cardiovasc Imag. 2009;2: 216- 225. Interpretive Data Last Revised Date: 2018. Blood 11/01/2024 4:57 PM INBOUND CUSTOMER SERVICE AGENT 11/01/2024 5:12 PM INBOUND CUSTOMER SERVICE AGENT Hilton Salgado DO LAB BLOOD ORDERABLES Final Result Performing Organization Address [facility] Co de Phone Number [facility] [address] [place] [address] * (ABNORMAL) CBC with auto differential (11/01/2024 4:57 PM INBOUND CUSTOMER SERVICE AGENT) Pathologist [facility] WBC 5.6 3.8 - 9.9 K/cumm Hgb 12.8(L) 13.0 - 17.5 g/dL [facility] Hct 42.7 38.9 - 50.3 % [facility] Plt 185 150 - 400 K/cumm [facility] MPV 11.1 9.1 - 12.3 fL [facility] RBC 4.34 4.30 - 5.80 M/cumm [facility] MCV 98.4(H) 81.3 - 96.4 fL [facility] MCH 29.5 27.1 - 33.3 pg [facility] MCHC 30.0(L) 32.3 - 35.7 g/dL [facility] RDW CV 13.9 11.1 - 14.9 % [facility] RDW SD 50.5(H) 35.7 - 48.1 fL [facility] NRBC abs 0.00 0.00 - 0.01 K/cumm [facility] Blood 11/01/2024 4:57 PM INBOUND CUSTOMER SERVICE AGENT 11/01/2024 5:12 PM INBOUND CUSTOMER SERVICE AGENT us Hilton Salgado DO LAB BLOOD ORDERABLES Final Result [facility] [address] [place] [address] * Erythrocyte sedimentation rate (11/01/2024 4:57 PM INBOUND CUSTOMER SERVICE AGENT) Pathologist [facility] Erythrocyte sedimentation rate 13 1 - 20 mm/hr Blood 11/01/2024 4:57 PM INBOUND CUSTOMER SERVICE AGENT 11/01/2024 5:12 PM INBOUND CUSTOMER SERVICE AGENT us Yannick Rangel MD LAB BLOOD ORDERABLES Final Resul t [facility] [address] [place] [address] * CRP (acute phase) (11/01/2024 4:57 PM INBOUND CUSTOMER SERVICE AGENT) [facility] CRP 6.7 <=10.0 mg/L Blood 11/01/2024 4:57 PM INBOUND CUSTOMER SERVICE AGENT 11/01/2024 5:12 PM INBOUND CUSTOMER SERVICE AGENT Yannick Rangel MD LAB BLOOD ORDERABLES Final Resul t Performing Organization Address [facility] de Phone Number [facility] [address] [place] [address] * Creatine kinase (CK), total (11/01/2024 4:57 PM INBOUND CUSTOMER SERVICE AGENT) [facility] CK 99 40 - 300 Units/L Blood 11/01/2024 4:57 PM INBOUND CUSTOMER SERVICE AGENT 11/01/2024 5:12 PM INBOUND CUSTOMER SERVICE AGENT Yannick Rangel MD LAB BLOOD ORDERABLES Final Resul t Performing Organization Address [facility] de Phone Number [facility] [address] [facility] [place] [address] * (ABNORMAL) Comprehensive metabolic panel (11/01/2024 4:57 PM INBOUND CUSTOMER SERVICE AGENT) [facility] Sodium 137 135 - 145 mmol/L Potassium, pl 4.3 3.3 - 4.9 mmol/L [facility] Chloride 95(L) 97 - 110 mmol/L [facility] CO2 34(H) 22 - 32 mmol/L [facility] Anion gap 8 2 - 15 mmol/L [facility] BUN 4(L) 6 - 25 mg/dL [facility] Creatinine 0.67(L) 0.80 - 1.30 mg/dL [facility] Glucose 88 70 - 199 mg/dL [facility] Comment: Interpretive Data Fasting glucose >/= 126 mg/dl is diagnostic for diabetes. Fasting is defined as no caloric intake for at least 8 hours. Fasting glucose between 100 mg/dl to 125 mg/dl is diagnostic of prediabetes. In a patient with classic symptoms of hyperglycemia or hyperglycemic crisis, a random glucose >/= 200 mg/dl is diagnostic for diabetes. In the absence of unequivocal hyperglycemia, results should be confirmed by repeat testing. The classification and Diagnosis of Diabetes Diabetes Care 202; 46: S19-S40. Current interpretive data was last revised 2022. Calcium 8.7 8.5 - 10.3 mg/dL [facility] Bilirubin, total 0.3 0.1 - 1.2 mg/dL [facility] Protein, pl 6.4(L) 6.5 - 8.5 g/dL [facility] Albumin 3.6 3.5 - 5.0 g/dL [facility] Alk phos 103 40 - 130 Units/L [facility] ALT 28 7 - 55 Units/L [facility] AST 28 10 - 50 Units/L [facility] Blood 11/01/2024 4:57 PM INBOUND CUSTOMER SERVICE AGENT 11/01/2024 5:12 PM INBOUND CUSTOMER SERVICE AGENT Hilton Salgado DO LAB BLOOD ORDERABLES Final Result [facility] [address] [place] [address] * XR Chest PA Lateral 2 Views (11/01/2024 4:50 PM INBOUND CUSTOMER SERVICE AGENT) Anatomical Region Laterality Modality Body, Chest N/A Computed Radiogr aphy 11/01/2024 5:09 PM INBOUND CUSTOMER SERVICE AGENT Impressions 11/01/2024 5:09 PM INBOUND CUSTOMER SERVICE AGENT No pneumonic consolidation, pleural effusion, pulmonary edema or pneumothorax. Heart size is at the upper limits of normal. Electronically signed by: Hilton Brown MD, PHD Narrative 11/01/2024 5:09 PM INBOUND CUSTOMER SERVICE AGENT EXAMINATION: XR CHEST PA LATERAL 2 VIEWS HISTORY: Shortness of breath COMPARISON: None available Procedure Note Hilton Brown MD PhD - 11/01/2024 EXAMINATION: XR CHEST PA LATERAL 2 VIEWS HISTORY: Shortness of breath COMPARISON: None available IMPRESSION: No pneumonic consolidation, pleural effusion, pulmonary edema or pneumothorax. Heart size is at the upper limits of normal. Electronically signed by: Hilton Brown MD, PHD us Hilton Salgado DO IMG XR PROCEDURES Final Res ult * ECG 12 lead (11/01/2024 4:36 PM INBOUND CUSTOMER SERVICE AGENT) 11/01/2024 4:36 PM INBOUND CUSTOMER SERVICE AGENT Narrative [facility] - 11/01/2024 7:34 PM INBOUND CUSTOMER SERVICE AGENT Vent Rate: 102 bpm RR Interval: 588 msec [place] Interval: 124 msec QRS Duration: 100 msec QT Interval: 359 msec QTC Interval: 417 msec P-R-T [place]: 71 - 77 - 56 degrees IMPRESSION: SINUS TACHYCARDIA ABNORMAL RHYTHM ECG Electronically Signed By: Romeo Vaughan MD PhD us Hilton Salgado DO ECG ORDERABLES Final Resul t [facility] from Last 3 Months Insurance [facility] Advance Directives For more information, please contact: [phone] * Full Code (Latest Code Status on File) Date Activated Date Inactivated Comments 11/01/2024 8:51 PM 11/09/2024 3:13 PM Care Teams Food Preparation Worker Relationship Specialty Start Date End Date No, Physician PCP - General 11/01/24 Camden Zamorano MD [address] [facility] [address] [place] [address] Consulting Physician Cardiology 11/07/24 Miscellaneous, Not In File 11/07/24
--- OUTSIDE RECORDS SUMMARY | 2025-01-02 07:27 | XMS_ITS | Clinical Summary ---
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 Acute congestive heart failure 11/02/2024 Wrist drop 11/01/2024 COPD exacerbation 11/01/2024 Severe malnutrition 11/01/2024 Bilateral cellulitis of lower leg 11/01/2024 Metabolic alkalosis 11/01/2024 Methamphetamine abuse 11/01/2024 IV drug user 11/01/2024 Cigarette smoker 11/01/2024 Encounters Date Type Department Care Team Description 11/05/2024 8:00 AM BIOINFORMATICS TECHNICIAN - 11/05/2024 9:50 AM [facility] [address] [place] [phone] Mary Day MD Aborted Cath Case Intra Proc 11/01/2024 5:04 PM BIOINFORMATICS TECHNICIAN - 11/09/2024 11:08 AM [facility] Hospital Encounter [facility] [address] [place] [phone] Odin Newell MD Berhil, MD Krystyna Lanier Matthew Daniel, MD Madej, Ritesh Weiss, DO [...] Discharge to home, home health skilled care from Last 3 Months Surgical History Surgery Date Site/Laterality Comments NO PAST SURGERIES Medical History Medical History Date Comments COPD (chronic obstructive pulmonary disease) (HC C) Chronic respiratory failure with hypoxia (HCC) 2L O2 Family History Medical History Relation Name Comments Hypertension Father Hypertension; Diabetes Mother Diabetes mellit us; Thyroid disease Mother Thyroid diso rder; Relation Name Status Comments Father Mother Social History Tobacco Use Types Packs/Day Years Used Date Smoking Tobacco: Every Day Cigarettes Tobacco Cessation:Ready to Q uit: Not Asked; Counseling Given: Not Answered Alcohol Use Standard Drinks/Week Comments Yes 0 (1 standard drink = 0.6 oz pur e alcohol) [facility] Utilities Answer Date Recorded In the past [...] often do you attend chur ch or tenriism services? Never 11/03/2024 Do you belong to any clubs o r organizations such as moravian groups, unions, fraternal or athletic groups, or [...] any time in the past 12 m [facility], were you homeless or living in a chcf (including now)? No 11/03/2024 Personal Safety Answer Date Recorded Have you ever been in or are you currently in a harmful physical or emotional relationship or is someone making you feel afraid or unsafe? Denies 11/01/2024 Sex and Gender Information Value Date Recorded Sex Assigned at Not on file Legal Sex Male 4:31 PM BIOINFORMATICS TECHNICIAN Gender Identity Not on file Sexual Orientation Not on file Obstetrics History Last Filed Vital Signs Vital Sign Reading Time Taken Comments Blood Pressure 113/55 11/09/2024 10:45 AM BIOINFORMATICS TECHNICIAN Pulse 99 11/09/2024 10:45 AM BIOINFORMATICS TECHNICIAN Temperature 36.7 C (98.1 F) 11/09/2024 10:45 AM BIOINFORMATICS TECHNICIAN discharge vitals Respiratory Rate 18 11/09/2024 10:4 5 AM BIOINFORMATICS TECHNICIAN Oxygen Saturation 100% 11/09/2024 10: 45 AM BIOINFORMATICS TECHNICIAN Inhaled Oxygen Concentration - - Weight 55.7 kg (122 lb 12.8 oz) 11/02/2024 4:00 PM BIOINFORMATICS TECHNICIAN Height 167.6 cm (5' 6 ) 11/01/2024 8:58 PM BIOINFORMATICS TECHNICIAN Body Mass Index 19.82 11/01/2024 8:58 PM BIOINFORMATICS TECHNICIAN Plan of Treatment Health Maintenance Due Date Last Done Comments Colon Cancer Screening-Colonoscopy 1965 Depression Screening 1965 Prostate Cancer Screening-PSA 1964 DTaP/Tdap/Td Vaccine (1 - Tdap) 1975 Hepatitis B Screening 1982 Regular Well Visit/Exam 18-64 1982 Pneumococcal vaccine <65 (1 of 2 - PCV) 1983 Zoster Vaccine (1 of 2) 2014 Covid-19 Vaccine (3 - season) 2024, 05/27/2021 Influenza Vaccine (#1) 2024 Hepatitis C Screening Completed 11/02/2024 Procedures Procedure Name Priority Date/Time Associated Diagnosis Comments EGFR Routine 11/09/2024 6:01 AM BIOINFORMATICS TECHNICIAN BASIC METABOLIC PANEL Routine 11/09/2024 6:01 AM BIOINFORMATICS TECHNICIAN EGFR Routine 11/08/2024 6:10 AM BIOINFORMATICS TECHNICIAN BASIC METABOLIC PANEL Routine 11/08/2024 6:[address] ABDOMEN PELVIS W CONTRAST IP Routine 11/07/2024 4:48 PM BIOINFORMATICS TECHNICIAN EGFR Routine 11/07/2024 6:59 AM BIOINFORMATICS TECHNICIAN BASIC METABOLIC PANEL Routine 11/07/2024 6:[address] ABDOMEN PELVIS W CONTRAST IP Routine 11/06/2024 5:08 PM BIOINFORMATICS TECHNICIAN EGFR Routine 11/06/2024 4:36 AM BIOINFORMATICS TECHNICIAN BASIC METABOLIC PANEL Routine 11/06/2024 4:[address] ABDOMEN PELVIS W CONTRAST IP Routine 11/05/2024 11:10 AM BIOINFORMATICS TECHNICIAN EGFR Routine 11/05/2024 9:53 AM BIOINFORMATICS TECHNICIAN BASIC METABOLIC PANEL Routine 11/05/2024 9:53 AM BIOINFORMATICS TECHNICIAN CARDIAC CATHETERIZATION Routine 11/05/19 25 9:36 AM BIOINFORMATICS TECHNICIAN 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) EGFR Routine 11/04/2024 4:45 AM BIOINFORMATICS TECHNICIAN DIFFERENTIAL AUTO Routine 11/04/2024 4:4 5 AM BIOINFORMATICS TECHNICIAN BASIC METABOLIC PANEL Routine 11/04/2024 4:45 AM BIOINFORMATICS TECHNICIAN CBC WITH AUTO DIFFERENTIAL Routine 11/04/2024 4:45 AM BIOINFORMATICS TECHNICIAN B CHECK SAMPLE STAT 11/04/2024 4:42 AM BIOINFORMATICS TECHNICIAN ADD ON LAB TEST Add-On 11/03/2024 5:37 PM BIOINFORMATICS TECHNICIAN TRANSTHORACIC ECHO (TTE) COMPLETE W DOPPLER/CF WO CONTRAST Routine 11/03/2024 7:32 AM BIOINFORMATICS TECHNICIAN LIPID PANEL Routine 11/03/2024 4:29 AM BIOINFORMATICS TECHNICIAN EGFR Routine 11/03/2024 4:29 AM BIOINFORMATICS TECHNICIAN BASIC METABOLIC PANEL Routine 11/03/2024 4:[address] CHEST WO CONTRAST IP Routine 11/02/2024 1:01 PM BIOINFORMATICS TECHNICIAN EGFR Routine 11/02/2024 3:41 AM BIOINFORMATICS TECHNICIAN DIFFERENTIAL AUTO Routine 11/02/2024 3:4 1 AM BIOINFORMATICS TECHNICIAN THYROID FUNCTION CASCADE Routine 11/02/2024 3:41 AM BIOINFORMATICS TECHNICIAN VITAMIN B12 Routine 11/02/2024 3:41 AM BIOINFORMATICS TECHNICIAN BASIC METABOLIC PANEL Routine 11/02/2024 3:41 AM BIOINFORMATICS TECHNICIAN CBC WITH AUTO DIFFERENTIAL Routine 11/02/2024 3:41 AM BIOINFORMATICS TECHNICIAN HEPATITIS C ANTIBODY Routine 11/02/2024 3:41 AM BIOINFORMATICS TECHNICIAN US VEIN DUPLEX LOWER EXTREMITY BILATERAL COMPLETE IP Routine 11/01/2024 11:03 PM BIOINFORMATICS TECHNICIAN TROPONIN T HIGH-SENSITIVITY 6-HOUR Timed 11/01/2024 10:56 PM BIOINFORMATICS TECHNICIAN HIV 1/2 ANTIBODY PLUS P24 ANTIGEN Routine 11/01/2024 9:19 PM BIOINFORMATICS TECHNICIAN MRSA ONLY (STAPHYLOCOCCUS AUREUS) PCR Routine 11/01/2024 9:19 PM BIOINFORMATICS TECHNICIAN DRUGS OF ABUSE SCREEN, URINE WITHOUT CONFIRMATION STAT 11/01/2024 8:36 PM BIOINFORMATICS TECHNICIAN TROPONIN T HIGH-SENSITIVITY 4-HR Timed 11/01/2024 8:36 PM BIOINFORMATICS TECHNICIAN URINALYSIS AND REFLEX TO MICROSCOPIC AND CULTURE STAT 11/01/2024 8:[address] HEAD WO CONTRAST ED 11/01/2024 8 :16 PM BIOINFORMATICS TECHNICIAN TROPONIN T HIGH-SENSITIVITY 2-HOUR Timed 11/01/2024 7:00 PM BIOINFORMATICS TECHNICIAN INFLUENZA A/B, RSV, AND COVID-19 PCR STAT 11/01/2024 7:00 PM BIOINFORMATICS TECHNICIAN BLOOD CULTURE STAT 11/01/2024 7:00 PM BIOINFORMATICS TECHNICIAN BLOOD CULTURE STAT 11/01/2024 7:00 PM BIOINFORMATICS TECHNICIAN CRP (ACUTE PHASE) STAT 11/01/2024 4:5 7 PM BIOINFORMATICS TECHNICIAN CREATINE KINASE (CK), TOTAL STAT 11/01/2024 4:57 PM BIOINFORMATICS TECHNICIAN ERYTHROCYTE SEDIMENTATION RATE STAT 11/01/2024 4:57 PM BIOINFORMATICS TECHNICIAN EGFR STAT 11/01/2024 4:57 PM BIOINFORMATICS TECHNICIAN DIFFERENTIAL AUTO STAT 11/01/2024 4:5 7 PM BIOINFORMATICS TECHNICIAN PRO B-TYPE NATRIURETIC PEPTIDE STAT 11/01/2024 4:57 PM BIOINFORMATICS TECHNICIAN TROPONIN T HIGH-SENSITIVITY SERIES (BASELINE, 2HR, 4HR, 6HR) STAT 11/01/2024 4:57 PM BIOINFORMATICS TECHNICIAN CBC WITH AUTO DIFFERENTIAL STAT 11/01/2024 4:57 PM BIOINFORMATICS TECHNICIAN COMPREHENSIVE METABOLIC PANEL STAT 11/01/2024 4:57 PM BIOINFORMATICS TECHNICIAN XR CHEST PA LATERAL 2 VIEWS ED 11/01/2024 4:50 PM BIOINFORMATICS TECHNICIAN ECG 12-LEAD STAT 11/01/2024 4:36 PM BIOINFORMATICS TECHNICIAN from Last 3 Months Results * eGFR (11/09/2024 6:01 AM BIOINFORMATICS TECHNICIAN) Pathologist [facility] eGFR >90 >=60 mL/min/1. 73 m2 Comment: [...] last reviewed 2021. Blood 11/09/2024 6:01 AM BIOINFORMATICS TECHNICIAN 11/09/2024 6:55 AM BIOINFORMATICS TECHNICIAN Ritesh Denson DO LAB BLOOD ORDERABLES Margret l Result [facility] [address] Department [place] [address] * (ABNORMAL) Basic metabolic panel (11/09/2024 6:01 AM BIOINFORMATICS TECHNICIAN) Pathologist [facility] Sodium 137 135 - 145 mmol/L Potassium, pl 4.4 3.3 - 4.9 mmol/L [facility] Chloride 92(L) 97 - 110 mmol/L [facility] CO2 39(H) 22 - 32 mmol/L [facility] Anion gap 6 2 - 15 mmol/L [facility] BUN 16 6 - 25 mg/dL [facility] Creatinine 0.59(L) 0.80 - 1.30 mg/dL [facility] Glucose 92 70 - 199 mg/dL [facility] Comment: Interpretive Data Fasting glucose [...] 2022. Calcium 8.8 8.5 - 10.3 mg/dL [facility] Blood 11/09/2024 6:01 AM BIOINFORMATICS TECHNICIAN 11/09/2024 6:55 AM BIOINFORMATICS TECHNICIAN Ritesh Denson DO LAB BLOOD ORDERABLES Margret martin Result [facility] [address] Department [place] [address] * eGFR (11/08/2024 6:10 AM BIOINFORMATICS TECHNICIAN) eGFR >90 >=60 mL/min/1. 73 m2 Comment: [...] last reviewed 2021. Blood 11/08/2024 6:10 AM BIOINFORMATICS TECHNICIAN 11/08/2024 7:10 AM BIOINFORMATICS TECHNICIAN Ritesh Denson DO LAB BLOOD ORDERABLES Margret l Result [facility] [address] Department [place] [address] * (ABNORMAL) Basic metabolic panel (11/08/2024 6:10 AM BIOINFORMATICS TECHNICIAN) Sodium 137 135 - 145 mmol/L Potassium, pl 5.0(H) 3.3 - 4.9 mmol/L [facility] Chloride 92(L) 97 - 110 mmol/L [facility] CO2 41(H) 22 - 32 mmol/L [facility] Anion gap 4 2 - 15 mmol/L [facility] BUN 23 6 - 25 mg/dL [facility] Creatinine 0.68(L) 0.80 - 1.30 mg/dL [facility] Glucose 104 70 - 199 mg/dL [facility] Comment: Interpretive Data Fasting glucose [...] 2022. Calcium 9.1 8.5 - 10.3 mg/dL [facility] Blood 11/08/2024 6:10 AM BIOINFORMATICS TECHNICIAN 11/08/2024 7:10 AM BIOINFORMATICS TECHNICIAN Ritesh Abhishek Madej DO LAB BLOOD ORDERABLES Margret martin Result [facility] [address] [place] [address] * CT Abdomen Pelvis W Contrast (11/07/2024 4:48 PM BIOINFORMATICS TECHNICIAN) Anatomical Region Laterality Modality Body N/A Computed Tomogra phy 11/08/2024 7:55 AM BIOINFORMATICS TECHNICIAN Impressions 11/08/2024 7:55 AM BIOINFORMATICS TECHNICIAN 1. Extensive amount of stool in the colon with mild upstream dilatation of the small bowel. Correlate for signs and symptoms of constipation. Electronically signed by: Bong Bruner MD Narrative 11/08/2024 7:55 AM BIOINFORMATICS TECHNICIAN EXAMINATION: CT OF THE ABDOMEN AND PELVIS [...] R esult * eGFR (11/07/2024 6:59 AM BIOINFORMATICS TECHNICIAN) eGFR >90 >=60 mL/min/1. 73 m2 Comment: [...] last reviewed 2021. Blood 11/07/2024 6:59 AM BIOINFORMATICS TECHNICIAN 11/07/2024 7:38 AM BIOINFORMATICS TECHNICIAN Ritesh Denson DO LAB BLOOD ORDERABLES Margret l Result Performing Organization Address [facility]/ZIP Co de Phone Number [facility] [address] [place] [address] * (ABNORMAL) Basic metabolic panel (11/07/2024 6:59 AM BIOINFORMATICS TECHNICIAN) Sodium 134(L) 135 - 145 mmol/L Potassium, pl 4.7 3.3 - 4.9 mmol/L [facility] Chloride 89(L) 97 - 110 mmol/L [facility] CO2 40(H) 22 - 32 mmol/L [facility] Anion gap 5 2 - 15 mmol/L [facility] BUN 19 6 - 25 mg/dL [facility] Creatinine 0.68(L) 0.80 - 1.30 mg/dL [facility] Glucose 109 70 - 199 mg/dL [facility] Comment: Interpretive Data Fasting glucose [...] 2022. Calcium 9.1 8.5 - 10.3 mg/dL [facility] Blood 11/07/2024 6:59 AM BIOINFORMATICS TECHNICIAN 11/07/2024 7:38 AM BIOINFORMATICS TECHNICIAN Ritesh Denson DO LAB BLOOD ORDERABLES Margret l Result Performing Organization Address [facility]/ZIP Co de Phone Number [facility] [address] [place] [address] * CT Abdomen Pelvis W Contrast (11/06/2024 5:08 PM BIOINFORMATICS TECHNICIAN) Anatomical Region Laterality Modality Body N/A Computed Tomogra phy 11/07/2024 8:01 AM BIOINFORMATICS TECHNICIAN Impressions 11/07/2024 8:01 AM BIOINFORMATICS TECHNICIAN 1. No acute intra-abdominal pathology. Electronically signed by: Enio Aviles M.D., MPH Narrative 11/07/2024 8:01 AM BIOINFORMATICS TECHNICIAN EXAMINATION: CT ABDOMEN PELVIS W CONTRAST TECHNIQUE: [...] Enio Aviles M.D., MPH Ritesh Denson DO [facility] CT PROCEDURES Final R esult * eGFR (11/06/2024 4:36 AM BIOINFORMATICS TECHNICIAN) eGFR >90 >=60 mL/min/1. 73 m2 Comment: [...] data was last reviewed 2021. Blood 11/06/2024 4:36 AM BIOINFORMATICS TECHNICIAN 11/06/2024 4:45 AM BIOINFORMATICS TECHNICIAN us Ritesh Denson DO LAB BLOOD ORDERABLES Margret l Result [facility] [address] Department of Laboratories [place], [place] [id number] * (ABNORMAL) Basic metabolic panel (11/06/2024 4:36 AM BIOINFORMATICS TECHNICIAN) Sodium 135 135 - 145 mmol/L Potassium, pl 4.7 3.3 - 4.9 mmol/L [facility] Chloride 90(L) 97 - 110 mmol/L [facility] CO2 38(H) 22 - 32 mmol/L [facility] Anion gap 7 2 - 15 mmol/L [facility] BUN 16 6 - 25 mg/dL [facility] Creatinine 0.64(L) 0.80 - 1.30 mg/dL [facility] Glucose 112 70 - 199 mg/dL [facility] Comment: Interpretive Data Fasting glucose [...] 2022. Calcium 8.9 8.5 - 10.3 mg/dL [facility] Blood 11/06/2024 4:36 AM BIOINFORMATICS TECHNICIAN 11/06/2024 4:45 AM BIOINFORMATICS TECHNICIAN us Ritesh Denson DO LAB BLOOD ORDERABLES Margret martin Result [facility] [address] Department [place] [address] * CT Abdomen Pelvis W Contrast (11/05/2024 11:10 AM BIOINFORMATICS TECHNICIAN) Anatomical Region Laterality Modality Body N/A Computed Tomogra phy 11/05/2024 1:41 PM BIOINFORMATICS TECHNICIAN Impressions 11/05/2024 1:41 PM BIOINFORMATICS TECHNICIAN Swirled appearance of the jejunal mesentery with [...] Micah Lemos M.D. Narrative 11/05/2024 1:41 PM BIOINFORMATICS TECHNICIAN EXAMINATION: Computed tomography of the pelvis with [...] R esult * eGFR (11/05/2024 9:53 AM BIOINFORMATICS TECHNICIAN) eGFR >90 >=60 mL/min/1. 73 m2 Comment: [...] last reviewed 2021. Blood 11/05/2024 9:53 AM BIOINFORMATICS TECHNICIAN 11/05/2024 10:05 AM BIOINFORMATICS TECHNICIAN Ritesh Denson DO LAB BLOOD ORDERABLES Margret l Result [facility] [address] Department [place] [address] * (ABNORMAL) Basic metabolic panel (11/05/2024 9:53 AM BIOINFORMATICS TECHNICIAN) Pathologist [facility] Sodium 137 135 - 145 mmol/L Potassium, pl 4.5 3.3 - 4.9 mmol/L [facility] Chloride 92(L) 97 - 110 mmol/L [facility] CO2 38(H) 22 - 32 mmol/L [facility] Anion gap 7 2 - 15 mmol/L [facility] BUN 11 6 - 25 mg/dL [facility] Creatinine 0.62(L) 0.80 - 1.30 mg/dL [facility] Glucose 87 70 - 199 mg/dL [facility] Comment: Interpretive Data Fasting glucose [...] 2022. Calcium 8.9 8.5 - 10.3 mg/dL [facility] Blood 11/05/2024 9:53 AM BIOINFORMATICS TECHNICIAN 11/05/2024 10:05 AM BIOINFORMATICS TECHNICIAN us Ritesh Denson DO LAB BLOOD ORDERABLES Margret l Result [facility] [address] Department [place] [address] * ABORTED CATH CASE INTRA PROC (11/05/2024 9:36 AM BIOINFORMATICS TECHNICIAN) Anatomical Region Laterality Modality X-Ray Angiograph y Narrative 11/10/2024 9:27 PM BIOINFORMATICS TECHNICIAN Procedure was not started, patient refused to lie flat before prep due to back pain. us Natalio PIERRE CV CARDIAC CATH PROC EDURES Final Result * eGFR (11/04/2024 4:45 AM BIOINFORMATICS TECHNICIAN) eGFR >90 >=60 mL/min/1. 73 m2 Comment: [...] last reviewed 2021. Blood 11/04/2024 4:45 AM BIOINFORMATICS TECHNICIAN 11/04/2024 4:54 AM BIOINFORMATICS TECHNICIAN us Mark Greenwood MD LAB BLOOD ORDERABLES Fi nal Result [facility] [address] [place] [address] * Differential, auto (11/04/2024 4:45 AM BIOINFORMATICS TECHNICIAN) Neutrophil abs 4.5 1.5 - 6.5 K/cumm Imm gran abs 0.0 0.0 - 0.1 K/cumm [facility] Lymphocyte abs 0.9 0.8 - 3.3 K/cumm [facility] Monocyte abs 0.6 0.2 - 0.8 K/cumm [facility] Eosinophil abs 0.1 0.0 - 0.5 K/cumm [facility] Basophil abs 0.0 0.0 - 0.1 K/cumm [facility] Neutrophil pct 73.3 % [facility] Comment: Interpretive Data Percent cell count reference ranges are not reported, since discordance with absolute values may lead to misinterpretation of CBC data. Current Interpretive Data was last revised on 2017. Imm gran pct 0.0 % [facility] Comment: Interpretive Data Percent cell count reference ranges are not reported, since discordance with absolute values may lead to misinterpretation of CBC data. Current Interpretive Data was last revised on 2017. Lymphocyte pct 15.3 % [facility] Comment: Interpretive Data Percent cell count reference ranges are not reported, since discordance with absolute values may lead to misinterpretation of CBC data. Current Interpretive Data was last revised on 2017. Monocyte pct 9.4 % [facility] Comment: Interpretive Data Percent cell count reference ranges are not reported, since discordance with absolute values may lead to misinterpretation of CBC data. Current Interpretive Data was last revised on 2017. Eosinophil pct 1.3 % [facility] Comment: Interpretive Data Percent cell count reference ranges are not reported, since discordance with absolute values may lead to misinterpretation of CBC data. Current Interpretive Data was last revised on 2017. Basophil pct 0.7 % [facility] Comment: Interpretive Data Percent cell count reference ranges are not reported, since discordance with absolute values may lead to misinterpretation of CBC data. Current Interpretive Data was last revised on 2017. Blood 11/04/2024 4:45 AM BIOINFORMATICS TECHNICIAN 11/04/2024 4:52 AM BIOINFORMATICS TECHNICIAN us Mark Greenwood MD LAB BLOOD ORDERABLES Fi nal Result [facility] [address] [place] [address] * (ABNORMAL) CBC with auto differential (11/04/2024 4:45 AM BIOINFORMATICS TECHNICIAN) WBC 6.1 3.8 - 9.9 K/cumm Hgb 13.5 13.0 - 17.5 g/dL [facility] Hct 45.2 38.9 - 50.3 % [facility] Plt 184 150 - 400 K/cumm [facility] MPV 10.9 9.1 - 12.3 fL [facility] RBC 4.58 4.30 - 5.80 M/cumm [facility] MCV 98.7(H) 81.3 - 96.4 fL [facility] MCH 29.5 27.1 - 33.3 pg [facility] MCHC 29.9(L) 32.3 - 35.7 g/dL [facility] RDW CV 13.8 11.1 - 14.9 % [facility] RDW SD 50.5(H) 35.7 - 48.1 fL [facility] NRBC abs 0.00 0.00 - 0.01 K/cumm [facility] Blood 11/04/2024 4:45 AM BIOINFORMATICS TECHNICIAN 11/04/2024 4:52 AM BIOINFORMATICS TECHNICIAN Mark Greenwood MD LAB BLOOD ORDERABLES Fi nal Result [facility] [address] Department [place] [address] * (ABNORMAL) Basic metabolic panel (11/04/2024 4:45 AM BIOINFORMATICS TECHNICIAN) Sodium 138 135 - 145 mmol/L Potassium, pl 4.7 3.3 - 4.9 mmol/L [facility] Chloride 92(L) 97 - 110 mmol/L [facility] CO2 39(H) 22 - 32 mmol/L [facility] Anion gap 7 2 - 15 mmol/L [facility] BUN 12 6 - 25 mg/dL [facility] Creatinine 0.78(L) 0.80 - 1.30 mg/dL [facility] Glucose 105 70 - 199 mg/dL [facility] Comment: Interpretive Data Fasting glucose [...] 2022. Calcium 8.5 8.5 - 10.3 mg/dL [facility] Blood 11/04/2024 4:45 AM BIOINFORMATICS TECHNICIAN 11/04/2024 4:54 AM BIOINFORMATICS TECHNICIAN Mark Greenwood MD LAB BLOOD ORDERABLES Fi nal Result [facility] [address] [facility] [place] [address] * Check Sample (11/04/2024 4:42 AM BIOINFORMATICS TECHNICIAN) ABO Rh O Positive MBC HCLL OTHER 11/04/2024 4:42 AM BIOINFORMATICS TECHNICIAN 11/05/2024 6:05 AM BIOINFORMATICS TECHNICIAN Ritesh Denson DO LAB BLOOD ORDERABLES Margret l Result Performing Organization Address [facility] Co de Phone Number [facility] [address] [facility] [place] [address] [facility] * Lipid panel - Add on lab test (11/03/2024 5:37 PM BIOINFORMATICS TECHNICIAN) Pathologist [facility] Acceptable Yes Blood 11/03/2024 5:37 PM BIOINFORMATICS TECHNICIAN 11/03/2024 5:37 PM BIOINFORMATICS TECHNICIAN Narrative [facility] - 11/03/2024 5:37 PM BIOINFORMATICS TECHNICIAN Name of Test->Lipid panel Mark Greenwood MD LAB BLOOD ORDERABLES Fi nal Result Performing Organization Address [facility] Co de Phone Number [facility] [address] Department [facility] [place], [place] [id number] * TRANSTHORACIC ECHO (TTE) COMPLETE W DOPPLER/CF WO CONTRAST (11/03/2024 7:32 AM BIOINFORMATICS TECHNICIAN) Pathologist [facility] LV EF 45-50 % CONS SCIMAGE Anatomical Region Laterality Modality Ultrasound 11/03/2024 7:04 AM BIOINFORMATICS TECHNICIAN Narrative 11/03/2024 3:07 PM BIOINFORMATICS TECHNICIAN [facility] [address] [place] [address] ECHOCARDIOGRAM Patient Name: JUSTIN GRAFF R : 1965 (59y 5m) Gender: M Study Date: 11/03/2024 07:04:42 AM Ht(Inch): 66 Wt(Lb): 121.91 BSA: 1.6 Vocational Nurse: Location: [id number] Order Provider: YANNICK RANGEL Heart Rate: 100 [...] effusion. Electronically Signed By: Sean Ellis MD, [facility] 11/03/2024 3:06:43 PM BIOINFORMATICS TECHNICIAN Procedure Note Sean Ellis MD - 11/03/2024 [facility] [address] [place] [address] ECHOCARDIOGRAM Patient Name: JUSTIN GRAFF R : 1965 (59y 5m) Gender: M Study Date: 11/03/2024 07:04:42 AM Ht(Inch): 66 Wt(Lb): 121.91 BSA: 1.6 Vocational Nurse: Location: [address] Order Provider: YANNICK RANGEL Heart Rate: [...] effusion. Electronically Signed By: Sean Ellis MD, [facility] 11/03/2024 3:06:43 PM BIOINFORMATICS TECHNICIAN Yannick Rangel MD CV ECHO PROCEDURES Final Result * eGFR (11/03/2024 4:29 AM BIOINFORMATICS TECHNICIAN) eGFR >90 >=60 mL/min/1. 73 m2 Comment: [...] Inclusion of Race in Diagnosing Kidney Disease, DANAEN 2020). The CKD-EPI equation should not be used for patients with unstable renal function and has not been validated in children and those over 70. Current interpretive data was last reviewed 2021. Blood 11/03/2024 4:29 AM BIOINFORMATICS TECHNICIAN 11/03/2024 5:06 AM BIOINFORMATICS TECHNICIAN us Mark Greenwood MD LAB BLOOD ORDERABLES Fi nal Result [facility] [address] [place] [address] * Lipid panel (11/03/2024 4:29 AM BIOINFORMATICS TECHNICIAN) Cholesterol 141 30 - 199 mg/dL Comment: [...] revised on 2018. Triglycerides 55 <=149 mg/dL [facility] Comment: Interpretive Data Ages < [...] revised on 2018. HDL 65 >=40 mg/dL [facility] Comment: Interpretive Data Ages < [...] on 2018. LDL, calculated 64 <=129 mg/dL [facility] Comment: Interpretive Data Ages < or = 19 years Acceptable: <110 mg/dL Borderline high: 110-129 mg/dL High: >or= 130 mg/dL Ages > or = 20 years Optimal: <100 mg/dL Near optimal: 100-129 mg/dL Borderline high: 130-159 mg/dL High: >160 mg/dL Calculated using the Lisandro LDL-C estimating equation. This equation was implemented [...] revised on 2024. Non-HDL Cholesterol 76 mg/dL [facility] Comment: Interpretive Data Ages < [...] last revised on 2018. Chol/HDL ratio 2 [facility] Blood 11/03/2024 4:29 AM BIOINFORMATICS TECHNICIAN 11/03/2024 5:06 AM BIOINFORMATICS TECHNICIAN Mark Greenwood MD LAB BLOOD ORDERABLES Fi nal Result Performing Organization Address City/[facility]/ZIP Co de Phone Number [facility] [address] [place] [place] [address] * (ABNORMAL) Basic metabolic panel (11/03/2024 4:29 AM BIOINFORMATICS TECHNICIAN) [facility] Sodium 136 135 - 145 mmol/L Potassium, pl 4.4 3.3 - 4.9 mmol/L [facility] Chloride 95(L) 97 - 110 mmol/L [facility] CO2 35(H) 22 - 32 mmol/L [facility] Anion gap 6 2 - 15 mmol/L [facility] BUN 9 6 - 25 mg/dL [facility] Creatinine 0.68(L) 0.80 - 1.30 mg/dL [facility] Glucose 101 70 - 199 mg/dL [facility] Comment: Interpretive Data Fasting glucose [...] 2022. Calcium 8.6 8.5 - 10.3 mg/dL [facility] Blood 11/03/2024 4:29 AM BIOINFORMATICS TECHNICIAN 11/03/2024 5:06 AM BIOINFORMATICS TECHNICIAN Mark Greenwood MD LAB BLOOD ORDERABLES Fi nal Result Performing Organization Address [facility]/ZIP Co de Phone Number [facility] [address] Department of [facility] [place] [address] * CT Chest WO Contrast (11/02/2024 1:01 PM BIOINFORMATICS TECHNICIAN) Anatomical Region Laterality Modality Body N/A Computed Tomogra phy 11/02/2024 1:14 PM BIOINFORMATICS TECHNICIAN Impressions 11/02/2024 1:14 PM BIOINFORMATICS TECHNICIAN Within the constraints of the exam as described: 1. Severe emphysema. 2. Tree-in-bud nodularity with bronchial thickening within the lower lobes, right greater than left. These findings likely represent sequelae of aspiration. Repeat CT in one to 3 months can be considered to document resolution. 3. Cardiomegaly. Three-vessel coronary artery disease. Electronically signed by: Johann Khan M.D. Narrative 11/02/2024 1:14 PM BIOINFORMATICS TECHNICIAN EXAMINATION: Computed tomography of the chest without [...] disease. Electronically signed by: Johann Khan M.D. Mark Greenwood MD IMG CT PROCEDURES Final Result * eGFR (11/02/2024 3:41 AM BIOINFORMATICS TECHNICIAN) eGFR >90 >=60 mL/min/1. 73 m2 Comment: [...] last reviewed 2021. Blood 11/02/2024 3:41 AM BIOINFORMATICS TECHNICIAN 11/02/2024 4:01 AM BIOINFORMATICS TECHNICIAN Yannick Rangel MD LAB BLOOD ORDERABLES Final Resul t [facility] [address] [place] [address] * (ABNORMAL) Differential, auto (11/02/2024 3:41 AM BIOINFORMATICS TECHNICIAN) Neutrophil abs 3.9 1.5 - 6.5 K/cumm Imm gran abs 0.0 0.0 - 0.1 K/cumm [facility] Lymphocyte abs 0.7(L) 0.8 - 3.3 K/cumm [facility] Monocyte abs 0.5 0.2 - 0.8 K/cumm [facility] Eosinophil abs 0.1 0.0 - 0.5 K/cumm [facility] Basophil abs 0.0 0.0 - 0.1 K/cumm [facility] Neutrophil pct 75.0 % [facility] Comment: Interpretive Data Percent cell count reference ranges are not reported, since discordance with absolute values may lead to misinterpretation of CBC data. Current Interpretive Data was last revised on 2017. Imm gran pct 0.2 % [facility] Comment: Interpretive Data Percent cell count reference ranges are not reported, since discordance with absolute values may lead to misinterpretation of CBC data. Current Interpretive Data was last revised on 2017. Lymphocyte pct 14.1 % [facility] Comment: Interpretive Data Percent cell count reference ranges are not reported, since discordance with absolute values may lead to misinterpretation of CBC data. Current Interpretive Data was last revised on 2017. Monocyte pct 8.6 % [facility] Comment: Interpretive Data Percent cell count reference ranges are not reported, since discordance with absolute values may lead to misinterpretation of CBC data. Current Interpretive Data was last revised on 2017. Eosinophil pct 1.5 % [facility] Comment: Interpretive Data Percent cell count reference ranges are not reported, since discordance with absolute values may lead to misinterpretation of CBC data. Current Interpretive Data was last revised on 2017. Basophil pct 0.6 % [facility] Comment: Interpretive Data Percent cell count reference ranges are not reported, since discordance with absolute values may lead to misinterpretation of CBC data. Current Interpretive Data was last revised on 2017. Blood 11/02/2024 3:41 AM BIOINFORMATICS TECHNICIAN 11/02/2024 4:01 AM BIOINFORMATICS TECHNICIAN Yannick Rangel MD LAB BLOOD ORDERABLES Final Resul t Performing Organization Address City/[facility]/ZIP Co de Phone Number [facility] [address] Department [facility] [place], [place] [id number] * Thyroid Function [place] (11/02/2024 3:41 AM BIOINFORMATICS TECHNICIAN) [facility] TSH 2.02 0.30 - 4.20 mcIUnit/mL Blood 11/02/2024 3:41 AM BIOINFORMATICS TECHNICIAN 11/02/2024 4:01 AM BIOINFORMATICS TECHNICIAN Yannick Rangel MD LAB BLOOD ORDERABLES Final Resul t Performing Organization Address City/[facility] Co de Phone Number [facility] [address] [place] [place] [address] * (ABNORMAL) CBC with auto differential (11/02/2024 3:41 AM BIOINFORMATICS TECHNICIAN) Pathologist [facility] WBC 5.2 3.8 - 9.9 K/cumm Hgb 12.1(L) 13.0 - 17.5 g/dL [facility] Hct 40.3 38.9 - 50.3 % [facility] Plt 179 150 - 400 K/cumm [facility] MPV 10.9 9.1 - 12.3 fL [facility] RBC 4.08(L) 4.30 - 5.80 M/cumm [facility] MCV 98.8(H) 81.3 - 96.4 fL [facility] MCH 29.7 27.1 - 33.3 pg [facility] MCHC 30.0(L) 32.3 - 35.7 g/dL [facility] RDW CV 13.8 11.1 - 14.9 % [facility] RDW SD 50.0(H) 35.7 - 48.1 fL [facility] NRBC abs 0.00 0.00 - 0.01 K/cumm [facility] Blood 11/02/2024 3:41 AM BIOINFORMATICS TECHNICIAN 11/02/2024 4:01 AM BIOINFORMATICS TECHNICIAN Yannick Rangel MD LAB BLOOD ORDERABLES Final Resul t Performing Organization Address [facility]/ZIP Co de Phone Number [facility] [address] Department of [facility] [place] [address] * Hepatitis C antibody Blood Blood, Venous (11/02/2024 3:41 AM BIOINFORMATICS TECHNICIAN) Hep C Ab Nonreactive Nonreactive Comment: Interpretive [...] blood specimen / Unknown 11/02/2024 3:41 AM BIOINFORMATICS TECHNICIAN 11/02/2024 4:01 AM BIOINFORMATICS TECHNICIAN Yannick Rangel MD LAB MICROBIOLOGY - GENERAL ORDER BAHMAN Final Result [facility] [address] Department of [facility] [place] [address] * Vitamin B12 (11/02/2024 3:41 AM BIOINFORMATICS TECHNICIAN) Vitamin B12 552 230 - 1,250 pg/mL Blood 11/02/2024 3:41 AM BIOINFORMATICS TECHNICIAN 11/02/2024 4:01 AM BIOINFORMATICS TECHNICIAN Yannick Rangel MD LAB BLOOD ORDERABLES Final Resul t Performing Organization Address City/[facility]/ZIP Co de Phone Number [facility] [address] [place] [address] * (ABNORMAL) Basic metabolic panel (11/02/2024 3:41 AM BIOINFORMATICS TECHNICIAN) Sodium 138 135 - 145 mmol/L Potassium, pl 4.6 3.3 - 4.9 mmol/L [facility] Chloride 95(L) 97 - 110 mmol/L [facility] CO2 35(H) 22 - 32 mmol/L [facility] Anion gap 8 2 - 15 mmol/L [facility] BUN 4(L) 6 - 25 mg/dL [facility] Creatinine 0.68(L) 0.80 - 1.30 mg/dL [facility] Glucose 82 70 - 199 mg/dL [facility] Comment: Interpretive Data Fasting glucose [...] 2022. Calcium 8.5 8.5 - 10.3 mg/dL [facility] Blood 11/02/2024 3:41 AM BIOINFORMATICS TECHNICIAN 11/02/2024 4:01 AM BIOINFORMATICS TECHNICIAN Yannick Rangel MD LAB BLOOD ORDERABLES Final Resul t Performing Organization Address City/[facility]/ZIP Co de Phone Number [facility] [address] Department of [facility] [place] [address] * US Vein Duplex Lower Extremity Bilateral Complete (11/01/2024 11:03 PM BIOINFORMATICS TECHNICIAN) Anatomical Region Laterality Modality Vascular Bilateral Ultrasound 11/02/2024 11:5 4 AM BIOINFORMATICS TECHNICIAN Impressions 11/02/2024 11:54 AM BIOINFORMATICS TECHNICIAN 1. This study has no evidence of deep vein thrombosis in the right lower extremity. 2. This study has no evidence of deep vein thrombosis in the left lower extremity. 3. The pulsatile quality of venous flow may be indicative of elevated central venous pressures. Electronically signed by: Edgar Luna MD Narrative 11/02/2024 11:54 AM BIOINFORMATICS TECHNICIAN Lower Extremity Vein Duplex Bilateral DATE: 11/01/2024 [...] by: Edgar Luna MD Yannick Rangel MD IMG US PROCEDURES Final Result * (ABNORMAL) Troponin T high-sensitivity 6-hour (11/01/2024 10:56 PM BIOINFORMATICS TECHNICIAN) Trop T hs 23(H) <=22 ng/L Comment: Interpretive Data For further hscTnT resources including the diagnostic algorithm and an aid in interpretation, copy and paste this link: https://nrl.testcatalog.org/show/hsTrop Current Interpretive Data last revised 2020. Trop T hs delta -4 ng/L [facility] Trop T hs interp Insignificant [facility] Blood 11/01/2024 10:5 6 PM BIOINFORMATICS TECHNICIAN 11/01/2024 11:14 PM BIOINFORMATICS TECHNICIAN Hilton Salgado DO LAB BLOOD ORDERABLES Final Result [facility] [address] [place] [address] * HIV 1/2 Antibody plus p24 Antigen Blood (11/01/2024 9:19 PM BIOINFORMATICS TECHNICIAN) HIV 1/2 ab + p24 ag Nonreactive Nonreactive Comment: Nonreactive for HIV-1 antigen and HIV-1/HIV-2 antibodies. No laboratory evidence of HIV infection. If acute HIV infection is suspected, consider testing for HIV-1 RNA. Blood 11/01/2024 9:19 PM BIOINFORMATICS TECHNICIAN 11/01/2024 9:25 PM BIOINFORMATICS TECHNICIAN Yannick Rangel MD LAB MICROBIOLOGY - GENERAL ORDER BAHMAN Final Result Performing Organization Address [facility] de Phone Number [facility] [address] [place] [address] * MRSA Only (Staphylococcus aureus) PCR Nasal (11/01/2024 9:19 PM BIOINFORMATICS TECHNICIAN) PCR Scrn, Methicillin resistant Staphylococcus aureus (MRSA) Not Detected Not Detected Comment: Interpretive Data Testing performed using Nucleic Acid Amplification with the Wisecam Xpert MRSA NxG Assay. This assay detects target DNA from mecA, mecC and the SCCmec insertion site of Staphylococcus aureus using Real-Time PCR and has been cleared by the FDA. Performance characteristics have been verified by the [facility]. Current Interpretive Data was last revised on 2023 Nasal 11/01/2024 9:19 PM BIOINFORMATICS TECHNICIAN 11/01/2024 9:35 PM BIOINFORMATICS TECHNICIAN Yannick Rangel MD LAB MICROBIOLOGY - GENERAL ORDER BAHMAN Final Result Performing Organization Address [facility] de Phone Number [facility] [address] [place] [address] * (ABNORMAL) Troponin T high-sensitivity 4-hour (11/01/2024 8:36 PM BIOINFORMATICS TECHNICIAN) Pathologist [facility] Trop T hs 23(H) <=22 ng/L Comment: Interpretive Data For further hscTnT resources including the diagnostic algorithm and an aid in interpretation, copy and paste this link: https://nrl.testcatalog.org/show/hsTrop Current Interpretive Data last revised 2020. Trop T hs delta -4 ng/L [facility] Trop T hs interp Insignificant [facility] Blood 11/01/2024 8:36 PM BIOINFORMATICS TECHNICIAN 11/01/2024 8:51 PM BIOINFORMATICS TECHNICIAN Hilton Salgado DO LAB BLOOD ORDERABLES Final Result Performing Organization Address City/[facility]/ZIP Co de Phone Number [facility] [address] [place] [address] * Urinalysis reflex to microscopic and culture Urine (11/01/2024 8:36 PM BIOINFORMATICS TECHNICIAN) Color, ur Yellow Yellow Clarity, ur Clear Clear [facility] Specific gravity, ur 1.014 1.003 - 1.030 [facility] pH, urine 7.5 [facility] Comment: Interpretive Data U rine pH is affected by diet, medications, systemic acid-base disturbances, and renal tubular function. pH may affect urinary stone formation. For example, urine pH below 6.0 may help reduce the tendency for calcium phosphate stones and pH greater than 6.0 may reduce the tendency for uric acid stone formation. Source: [facility] Current Interpretive Data was last revised on 2017 Protein, ur ql Negative Negative [facility] Glucose, ur ql Negative Negative [facility] Ketones, ur Negative Negative [facility] Bilirubin, ur Negative Negative [facility] Blood, ur Negative Negative [facility] Urobilinogen, ur <2.0 <2.0 mg/dL [facility] Nitrite, ur Negative Negative [facility] Leukocyte esterase, ur Negative Negative [facility] UA reflex comment Reflex conditions for microscopic UA and culture not met. [facility] Urine 11/01/2024 8:36 PM BIOINFORMATICS TECHNICIAN 11/01/2024 8:45 PM BIOINFORMATICS TECHNICIAN Atif Acosta MD LAB MICROBIOLOGY - GENERAL O RDERABLES Final Result [facility] [address] [place] [address] * (ABNORMAL) Drugs of Abuse Screen, Urine without Confirmation (11/01/2024 8:36 PM BIOINFORMATICS TECHNICIAN) Amphetamine, ur Screen Positive, presumptive (A) CutOff 500ng/mL Comment: Interpretive Data - Amphetamines: Samples containing greater than 500 ng/mL d-methamphetamine or other cross-reacting amphetamine compounds are reported as positive. Amphetamine immunoassays are subject to significant false positive rates due to cross-reactivity of non-amphetamine drugs. Confirmatory testing required for definitive results. Current Interpretive Data was last reviewed 2023. Barbiturates, ur Not Detected CutOff 200ng/mL [facility] Comment: Interpretive Data - Barbiturates: Samples containing greater than 200 ng/mL secobarbital or other cross-reacting barbiturate compounds are reported as positive. False positive and false negative results are possible. Confirmatory testing required for definitive results. Current Interpretive Data was last reviewed 2023. Benzodiazepines, ur Not Detected CutOff 100ng/mL [facility] Comment: Interpretive Data - Benzodiazepines: Samples containing greater than 100 ng/mL nordiazepam or other cross-reacting compounds are reported as positive. False positive and false negative results are possible. Confirmatory testing required for definitive results. Current Interpretive Data was last reviewed 2023. Cannabinoids, ur Not Detected CutOff 50 ng/mL [facility] Comment: Interpretive Data - Cannabinoids: Samples containing greater than 50 ng/mL delta-9 THC -COOH or other cross- reacting compounds are reported as positive. False positive and false negative results are possible. Confirmatory testing required for definitive results. Current Interpretive Data was last reviewed 2023. Cocaine, ur Not Detected CutOff 150ng/mL [facility] Comment: Interpretive Data - Cocaine: Samples containing greater than 150 ng/mL benzoylecgonine or other cross- reacting compounds are reported as positive. False positive and false negative results are possible. Confirmatory testing required for definitive results. Current Interpretive Data was last reviewed 2023. Fentanyl, Ur Not Detected CutOff 5 ng/mL [facility] Comment: Interpretive Data - Fentanyl: Samples containing greater than 5 ng/mL norfentanyl, fentanyl, or other cross-reacting fentanyl compounds are reported as positive. False positive and false negative results are possible. Confirmatory testing required for definitive results. Current Interpretive Data was last reviewed 2023. Methadone, ur Not Detected CutOff 300ng/mL [facility] Comment: Interpretive Data - Methadone: Samples containing greater than 300 ng/mL d,l-methadone or other cross-reacting compounds are reported as positive. False positive and false negative results are possible. Confirmatory testing required for definitive results. Current Interpretive Data was last reviewed 2023. Opiates, ur Not Detected CutOff 300ng/mL [facility] Comment: Interpretive Data - Opiates: Samples containing greater than 300 ng/mL morphine or other cross-reacting compounds are reported as positive. False positive and false negative results are possible. Confirmatory testing required for definitive results. Current Interpretive Data was last reviewed 2023. Oxycodone, ur Not Detected CutOff 100ng/mL [facility] Comment: Interpretive Data - Oxycodone: Samples containing greater than 100 ng/mL oxycodone or other cross-reacting compounds are reported as positive. False positive and false negative results are possible. Confirmatory testing required for definitive results. Current Interpretive Data was last reviewed 2023. Phencyclidine, ur Not Detected CutOff 25 ng/mL [facility] Comment: Interpretive Data - Phencyclidine: Samples containing greater than 25 ng/mL phencyclidine or other cross-reacting compounds are reported as positive. False positive and false negative results are possible. Confirmatory testing required for definitive results. Current Interpretive Data was last reviewed 2023. Urine Creatinine 59 mg/dL [facility] Comment: Interpretive Data Urine Creatinine: < 10 mg/dL is extremely dilute = or > 10 but < 20 mg/dL is dilute = or > 20 mg/dL is normal Current Interpretive Data was last revised on 2017. Urine 11/01/2024 8:36 PM BIOINFORMATICS TECHNICIAN 11/01/2024 8:52 PM BIOINFORMATICS TECHNICIAN Narrative [facility] - 11/01/2024 9:21 PM BIOINFORMATICS TECHNICIAN Drug of Abuse screening is performed by immunoassay for medical purposes only. This is not to be used for Pain Management purposes. us Atif Acosta MD LAB URINE ORDERABLES Final R esult [facility] [address] Department [place] [address] * CT Head WO Contrast (11/01/2024 8:16 PM BIOINFORMATICS TECHNICIAN) Anatomical Region Laterality Modality Head and Neck N/A Computed Tomogra phy 11/01/2024 8:12 PM BIOINFORMATICS TECHNICIAN Impressions 11/01/2024 10:18 PM BIOINFORMATICS TECHNICIAN 1. No acute intracranial abnormality. 2. If there is continued clinical concern, dedicated MRI could be obtained for further evaluation. For the purposes of quality nurse, this study was initially interpreted by teleradiology. There is no significant discrepancy. Electronically signed by: Fabien Jane M.D. Narrative 11/01/2024 10:18 PM BIOINFORMATICS TECHNICIAN EXAMINATION: CT head without contrast HISTORY: New [...] further evaluation. For the purposes of quality nurse, this study was initially interpreted by teleradiology. There is no significant discrepancy. Electronically signed by: Fabien Jane M.D. us Atif Acosta MD IMG CT PROCEDURES Final Resu lt * (ABNORMAL) Troponin T high-sensitivity 2-hour (11/01/2024 7:00 PM BIOINFORMATICS TECHNICIAN) Trop T hs 23(H) <=22 ng/L Comment: Interpretive Data For further hscTnT resources including the diagnostic algorithm and an aid in interpretation, copy and paste this link: https://nrl.testcatalog.org/show/hsTrop Current Interpretive Data last revised 2020. Trop T hs delta -4 ng/L [facility] Trop T hs interp Insignificant [facility] Blood 11/01/2024 7:00 PM BIOINFORMATICS TECHNICIAN 11/01/2024 7:35 PM BIOINFORMATICS TECHNICIAN us Hilton Salgado DO LAB BLOOD ORDERABLES Final Result Performing Organization Address [facility]/ZIP Co de Phone Number [facility] [address] [place] [address] * Influenza A/B, RSV, and COVID-19 PCR Nasopharyngeal (11/01/2024 7:00 PM BIOINFORMATICS TECHNICIAN) COVID-19 RNA Negative Negative Influenza A RNA Negative Negative [facility] Influenza B RNA Negative Negative [facility] RSV RNA Negative Negative [facility] Comment: Interpretive data: Testing performed by [facility]. This test is performed using the Wisecam Xpert Xpress CoV-2/Flu/RSV plus assay. This is a multiplex, real-time reverse transcriptase PCR assay intended for the qualitative detection of nucleic acid from SARS-CoV-2, influenza A, influenza B, and respiratory syncytial virus. This assay has been cleared by the [place] Food and Drug administration. The performance characteristics have been verified by the [facility]. Results must be considered in the clinical context, and a negative result does not rule out infection. Interpretive Data last revised 2023 Nasopharyngeal 11/01/2024 7: 00 PM BIOINFORMATICS TECHNICIAN 11/01/2024 7:10 PM BIOINFORMATICS TECHNICIAN Narrative [facility] - 11/01/2024 7:55 PM BIOINFORMATICS TECHNICIAN Is the Patient experiencing symptoms consistent with COVID?->Yes Odin Newell MD LAB MICROBIOLOGY - GENERAL O RDERABLES Final Result Performing Organization Address [facility]/ZIP Co de Phone Number [facility] [address] [place] [address] * Blood culture Blood Peripheral (11/01/2024 7:00 PM BIOINFORMATICS TECHNICIAN) Report Final Report: No growth Blood (Peripheral) 11/01/2024 7:00 PM BIOINFORMATICS TECHNICIAN 11/01/2024 7:13 PM BIOINFORMATICS TECHNICIAN Narrative [facility] - 11/07/2024 7:01 AM BIOINFORMATICS TECHNICIAN From a different site than #1. Draw [...] organism identification may be performed using the [employer] Blood Culture Identification panel. This assay detects microbial DNA in a blood culture broth. This assay has been cleared by the [place] Food and Drug Administration and its performance characteristics have been verified by the [facility]. Interpretive data was last revised on October 19, 2022. Atif Acosta MD LAB MICROBIOLOGY - GENERAL O RDERABLES Final Result [facility] [address] [place] [address] * Blood culture Blood Peripheral (11/01/2024 7:00 PM BIOINFORMATICS TECHNICIAN) Report Final Report: No growth Blood (Peripheral) 11/01/2024 7:00 PM BIOINFORMATICS TECHNICIAN 11/01/2024 7:13 PM BIOINFORMATICS TECHNICIAN Narrative [facility] - 11/07/2024 7:01 AM BIOINFORMATICS TECHNICIAN Draw Blood cultures before administration of Antibiotics [...] organism identification may be performed using the [employer] Blood Culture Identification panel. This assay detects microbial DNA in a blood culture broth. This assay has been cleared by the [place] Food and Drug Administration and its performance characteristics have been verified by the [facility]. Interpretive data was last revised on October 19, 2022. Atif Acosta MD LAB MICROBIOLOGY - GENERAL O RDERABLES Final Result Performing Organization Address City/[facility]/ZIP Co de Phone Number [facility] [address] Department of [facility] [place], [place] [id number] * (ABNORMAL) Troponin T high-sensitivity series (baseline, 2hr, 4hr, 6hr) (11/01/2024 4:57 PM BIOINFORMATICS TECHNICIAN) Trop T hs 27(H) <=22 ng/L Comment: Interpretive Data For further hscTnT resources including the diagnostic algorithm and an aid in interpretation, copy and paste this link: https://nrl.testcatalog.org/show/hsTrop Current Interpretive Data last revised 2020. Blood 11/01/2024 4:57 PM BIOINFORMATICS TECHNICIAN 11/01/2024 5:12 PM BIOINFORMATICS TECHNICIAN us Hilton Salgado DO LAB BLOOD ORDERABLES Final Result Performing Organization Address [facility] Co de Phone Number [facility] [address] Department of [facility] [place] [address] * eGFR (11/01/2024 4:57 PM BIOINFORMATICS TECHNICIAN) eGFR >90 >=60 mL/min/1. 73 m2 Comment: [...] data was last reviewed 2021. Blood 11/01/2024 4:5 7 PM BIOINFORMATICS TECHNICIAN 11/01/2024 5:12 PM BIOINFORMATICS TECHNICIAN us Hilton Salgado DO LAB BLOOD ORDERABLES Final Result [facility] [address] [place] [address] * (ABNORMAL) Differential, auto (11/01/2024 4:57 PM BIOINFORMATICS TECHNICIAN) Neutrophil abs 4.4 1.5 - 6.5 K/cumm Imm gran abs 0.0 0.0 - 0.1 K/cumm [facility] Lymphocyte abs 0.7(L) 0.8 - 3.3 K/cumm [facility] Monocyte abs 0.5 0.2 - 0.8 K/cumm [facility] Eosinophil abs 0.1 0.0 - 0.5 K/cumm [facility] Basophil abs 0.0 0.0 - 0.1 K/cumm [facility] Neutrophil pct 78.4 % [facility] Comment: Interpretive Data Percent cell count reference ranges are not reported, since discordance with absolute values may lead to misinterpretation of CBC data. Current Interpretive Data was last revised on 2017. Imm gran pct 0.2 % [facility] Comment: Interpretive Data Percent cell count reference ranges are not reported, since discordance with absolute values may lead to misinterpretation of CBC data. Current Interpretive Data was last revised on 2017. Lymphocyte pct 11.7 % [facility] Comment: Interpretive Data Percent cell count reference ranges are not reported, since discordance with absolute values may lead to misinterpretation of CBC data. Current Interpretive Data was last revised on 2017. Monocyte pct 8.1 % [facility] Comment: Interpretive Data Percent cell count reference ranges are not reported, since discordance with absolute values may lead to misinterpretation of CBC data. Current Interpretive Data was last revised on 2017. Eosinophil pct 1.1 % [facility] Comment: Interpretive Data Percent cell count reference ranges are not reported, since discordance with absolute values may lead to misinterpretation of CBC data. Current Interpretive Data was last revised on 2017. Basophil pct 0.5 % [facility] Comment: Interpretive Data Percent cell count reference ranges are not reported, since discordance with absolute values may lead to misinterpretation of CBC data. Current Interpretive Data was last revised on 2017. Blood 11/01/2024 4:57 PM BIOINFORMATICS TECHNICIAN 11/01/2024 5:12 PM BIOINFORMATICS TECHNICIAN us Hilton Salgado DO LAB BLOOD ORDERABLES Final Result [facility] [address] [place] [address] * (ABNORMAL) Pro B-type natriuretic peptide (11/01/2024 4:57 PM BIOINFORMATICS TECHNICIAN) NT-proBNP 7,636(H) <=300 pg/mL Comment: Interpretive Comments: [...] et.al. Eur Heart J. 2006:27:330-337. 2. Светлана GLASGOW, Maru RODAS. J. AM James Cardiol: Cardiovasc Imag. 2009;2: 216- 225. Interpretive Data Last Revised Date: 2018. Blood 11/01/2024 4:57 PM BIOINFORMATICS TECHNICIAN 11/01/2024 5:12 PM BIOINFORMATICS TECHNICIAN us Hilton Salgado DO LAB BLOOD ORDERABLES Final Result [facility] [address] [place] [address] * (ABNORMAL) CBC with auto differential (11/01/2024 4:57 PM BIOINFORMATICS TECHNICIAN) WBC 5.6 3.8 - 9.9 K/cumm Hgb 12.8(L) 13.0 - 17.5 g/dL [facility] Hct 42.7 38.9 - 50.3 % [facility] Plt 185 150 - 400 K/cumm [facility] MPV 11.1 9.1 - 12.3 fL [facility] RBC 4.34 4.30 - 5.80 M/cumm [facility] MCV 98.4(H) 81.3 - 96.4 fL [facility] MCH 29.5 27.1 - 33.3 pg [facility] MCHC 30.0(L) 32.3 - 35.7 g/dL [facility] RDW CV 13.9 11.1 - 14.9 % [facility] RDW SD 50.5(H) 35.7 - 48.1 fL [facility] NRBC abs 0.00 0.00 - 0.01 K/cumm [facility] Blood 11/01/2024 4:57 PM BIOINFORMATICS TECHNICIAN 11/01/2024 5:12 PM BIOINFORMATICS TECHNICIAN Hilton Salgado DO LAB BLOOD ORDERABLES Final Result Performing Organization Address [facility] Co de Phone Number [facility] [address] [place] [address] * Erythrocyte sedimentation rate (11/01/2024 4:57 PM BIOINFORMATICS TECHNICIAN) Erythrocyte sedimentation rate 13 1 - 20 mm/hr Blood 11/01/2024 4:57 PM BIOINFORMATICS TECHNICIAN 11/01/2024 5:12 PM BIOINFORMATICS TECHNICIAN Yannick Rangel MD LAB BLOOD ORDERABLES Final Resul t Performing Organization Address [facility] Phone Number [facility] [address] [place] [address] * CRP (acute phase) (11/01/2024 4:57 PM BIOINFORMATICS TECHNICIAN) CRP 6.7 <=10.0 mg/L Blood 11/01/2024 4:57 PM BIOINFORMATICS TECHNICIAN 11/01/2024 5:12 PM BIOINFORMATICS TECHNICIAN us Yannick Rangel MD LAB BLOOD ORDERABLES Final Resul t Performing Organization Address [facility] de Phone Number [facility] [address] [place] [place] [address] * Creatine kinase (CK), total (11/01/2024 4:57 PM BIOINFORMATICS TECHNICIAN) CK 99 40 - 300 Units/L Blood 11/01/2024 4:57 PM BIOINFORMATICS TECHNICIAN 11/01/2024 5:12 PM BIOINFORMATICS TECHNICIAN Yannick Rangel MD LAB BLOOD ORDERABLES Final Resul t Performing Organization Address [facility] Co de Phone Number [facility] [address] [place] [address] * (ABNORMAL) Comprehensive metabolic panel (11/01/2024 4:57 PM BIOINFORMATICS TECHNICIAN) Sodium 137 135 - 145 mmol/L Potassium, pl 4.3 3.3 - 4.9 mmol/L [facility] Chloride 95(L) 97 - 110 mmol/L [facility] CO2 34(H) 22 - 32 mmol/L [facility] Anion gap 8 2 - 15 mmol/L [facility] BUN 4(L) 6 - 25 mg/dL [facility] Creatinine 0.67(L) 0.80 - 1.30 mg/dL [facility] Glucose 88 70 - 199 mg/dL [facility] Comment: Interpretive Data Fasting glucose [...] 2022. Calcium 8.7 8.5 - 10.3 mg/dL [facility] Bilirubin, total 0.3 0.1 - 1.2 mg/dL [facility] Protein, pl 6.4(L) 6.5 - 8.5 g/dL [facility] Albumin 3.6 3.5 - 5.0 g/dL [facility] Alk phos 103 40 - 130 Units/L [facility] ALT 28 7 - 55 Units/L [facility] AST 28 10 - 50 Units/L [facility] Blood 11/01/2024 4:57 PM BIOINFORMATICS TECHNICIAN 11/01/2024 5:12 PM BIOINFORMATICS TECHNICIAN Hilton Salgado DO LAB BLOOD ORDERABLES Final Result [facility] [address] [place] [address] * XR Chest PA Lateral 2 Views (11/01/2024 4:50 PM BIOINFORMATICS TECHNICIAN) Anatomical Region Laterality Modality Body, Chest N/A Computed Radiogr aphy 11/01/2024 5:09 PM BIOINFORMATICS TECHNICIAN Impressions 11/01/2024 5:09 PM BIOINFORMATICS TECHNICIAN No pneumonic consolidation, pleural effusion, pulmonary edema or pneumothorax. Heart size is at the upper limits of normal. Electronically signed by: Hilton Brown MD, PHD Narrative 11/01/2024 5:09 PM BIOINFORMATICS TECHNICIAN EXAMINATION: XR CHEST PA LATERAL 2 VIEWS [...] * ECG 12 lead (11/01/2024 4:36 PM BIOINFORMATICS TECHNICIAN) 11/01/2024 4:36 PM BIOINFORMATICS TECHNICIAN Narrative [facility] - 11/01/2024 7:34 PM BIOINFORMATICS TECHNICIAN Vent Rate: 102 bpm RR Interval: 588 msec ND Interval: 124 msec QRS Duration: 100 msec QT Interval: 359 msec QTC Interval: 417 msec P-R-T Whitlash: 71 - 77 - 56 degrees IMPRESSION: SINUS TACHYCARDIA ABNORMAL RHYTHM ECG Electronically Signed By: Romeo Vaughan MD PhD us Hilton Salgado DO ECG ORDERABLES Final Resul t [facility] from Last 3 Months Insurance [facility] Advance Directives For more information, please contact: [phone] * Full Code (Latest Code Status on File) Date Activated Date Inactivated Comments 11/01/2024 8:51 PM 11/09/2024 3:13 PM Care Teams Web Operations Manager Relationship Specialty Start Date End Date No, Physician PCP - General 11/01/24 Camden Zamorano MD [address] [facility] [address] [place] [address] Consulting Physician Cardiology 11/07/24 Miscellaneous, Not In File 11/07/24
--- OUTSIDE RECORDS SUMMARY | 2025-01-02 07:27 | XMS_ITS | Clinical Summary ---
Author Organization [facility] Address [address] 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 Name Role Phone Unavailable Primary Care Provider Unavailabl e Social History Tobacco Use Types Packs/Day Years Used Date Smoking Tobacco: Never Assessed Sex and Gender Information Value Date Recorded Sex Assigned at Not on file Legal Sex Male 4:10 AM [employer] Gender Identity Not on file Sexual Orientation Not on file Plan of Treatment Health Maintenance Due Date Last Done Comments DTAP/TDAP/TD VACCINES (1 - Tdap) 1983 COLORECTAL SCREENING 2009 Colorectal Cancer Screening 2009 FIT-DNA Q 3 years 2009 FIT/FOBT Q 1 year 2009 Flex Sig/CT Colonography Q 5 years 2009 ZOSTER VACCINE (1 of 2) 2014 INFLUENZA VACCINE (#1) 2024 RSV VACCINE (60+ or ) (1 - 1-dose 75+ series) 2039 HEPATITIS B VACCINES Aged Out No long er eligible based on patient's age to complete this topic
--- OUTSIDE RECORDS SUMMARY | 2025-01-02 07:27 | XMS_ITS | Data Portability ---
Author Organization [place] - [employer], Main Office Address [address] [place] [address] Assessment Encounter Date Assessment Date Assessment LastModified by Organization Details LastModified Time 01/24/2023 01/24/2023 Spent up to 50 minutes preparing to see the patient (eg, review of tests), obtaining and/or reviewing separately obtained history, performing a medically appropriate examination and evaluation, counseling and educating the patient, ordering medications, tests, along with documenting clinical information in the electronic health record, independently interpreting results and communicating results to the patient. Not available 01/24/2023 14:31:55 01/31/2023 01/31/2023 Cscope- cologuard 11/2022- negative- repeat 3 years- 11/2025 PSA- 11/2022 LDCT- ordered by sandra APPLE- 11/23/22 Call office if worse, ER if life threatening illness RTC 3 months He voices understanding of plan and agrees [email or web address] Not available 01/31/2023 12:19:58 03/13/2023 03/13/2023 Spent up to 50 minutes preparing to see the patient (eg, review of tests), obtaining and/or reviewing separately obtained history, performing a medically appropriate examination and evaluation, counseling and educating the patient, ordering medications, tests, along with documenting clinical information in the electronic health record, independently interpreting results and communicating results to the patient. Not available 03/13/2023 14:07:51 06/06/2023 06/06/2023 Cscope- cologuard 11/2022- negative- repeat 3 years- 11/2025 PSA- 11/2022 LDCT- ordered by sandra APPLE- 11/23/22 Call office if worse, ER if life threatening illness RTC 3 months He voices understanding of plan and agrees [email or web address] Not available 06/06/2023 12:39:31 Plan of Treatment Reminders Order Date Submit Date Provider Last Modified By Organization Details Last Modified Time Details Appointments None recorded. Lab ige, total, serum 2022 023 [email or web address] 25 [facility] (Lab), [address] [place], [address], 11:56:41 alpha-1-ant itrypsin (aat) phenotype, serum [email or web address] [place] [address] (Lab), [address] [place], [address], 11:56:41 BNP (B-type natriuretic peptide), serum or plasma 2022 [address] [email or web address] [place] [address] (Lab), [address] [place], [address], 11:56:42 igg subclasses 1+2+3+4, serum [email or web address] [place] [address] (Lab), [address] [place], [address], 11:56:42 eosinophil count, manual, blood (OBS) [email or web address] [place] [address] (Lab), [address] [place], [address], 11:56:42 tb (M tuberculosi s), ifn-gamma isa, blood [email or web address] [place] [address] (Lab), [address] [place], [address], 3 11:56:42 alpha-1-ant itrypsin (aat), QN, serum 2022 023 [email or web address] 25 [facility] (Lab), [address] [place], [address], 3 11:56:42 rast class, qualitative , serum 2022 023 [email or web address] 25 [facility] (Lab), [address] [place], [address], 3 11:56:43 ige, total, serum [address] (Lab), [address] [place], [address], 3 17:04:38 alpha-1-ant itrypsin (aat) phenotype, serum [address] (Lab), [address] [place], [address], 3 17:04:38 BNP (B-type natriuretic peptide), serum or plasma [address] (Lab), [address] [place], [address], 3 17:04:38 igg subclasses 1+2+3+4, serum [address] (Lab), [address] [place], [address], 3 17:04:39 eosinophil count, manual, blood (OBS) [address] (Lab), [address] [place], [address], 3 17:04:39 tb (M tuberculosi s), ifn-gamma isa, blood [address] (Lab), [address] [place], [address], 17:04:39 alpha-1-ant itrypsin (aat), QN, serum [address] (Lab), [address] [place], [address], 17:04:39 rast class, qualitative , serum [address] (Lab), [address] [place], [address], 17:04:40 Referral None recorded. Procedures None recorded. Surgeries None recorded. Imaging LDCT, chest, for lung cancer screening - keely lewis no auth required for LDCt 2022 023 [facility], [address], [place], [address], 14:32:47 Medication Orders albuterol sulfate HFA 90 mcg/actuati on aerosol inhaler 2022 023 [facility], [address], [id number], 3 13:09:39 Trelegy Ellipta 200 mcg-62.5 mcg-25 mcg powder for inhalation 2022 023 [email or web address] [facility], [address], [place], [id number], 3 15:37:30 albuterol sulfate 2.5 mg/3 mL (0.083 %) solution for nebulizatio n 2022 [address] [email or web address] [address] [place], [place] [address] #[facility]84[facility], [address] , [place], [place], [id number], 15:37:30 Patient TargetsNo targets recorded. Patient Instructions Encounter Date Encounter Id Patient Instructions Last Modified By Organization Details Last Modified Time 01/24/2023 [id number] complete PFT w/ post bronchodilator spirometry* ESA Not available 03/09/2023 11:18:36 six minute walk test* - Titrate for home o2, Apt scheduled for March 06, 2023 arrive 1000am ESA Not available 03/13/2023 12:04:47 Reason for Referral None Reported. Results Created Date Observation Date Name Description Value Unit Range Abnormal Flag Note LastModifiedBy Organization Detail LastModifiedTime 03/06/2003/06/2023 LDCT, chest , for lung cance r scree melissa No observ ation record ed. [address] [facility] [address], [place], [address], 03/13/2023 10:46:40 03/09/20 23 03/06/2023 compl ete PFT w/ post [facility] hodil ator emmy metry * No observ ation record ed. [address] (Resp Services) [address] [place] [address] [address], [place], [address], 03/13/2023 10:46:00 03/12/20 23 03/06/2023 compl ete PFT w/ post [facility] hodil ator emmy metry * No observ ation record ed. [address] (Resp Services) [facility] [address], [place], [address], 03/13/2023 10:46:20 03/13/20 23 03/06/2023 six minut e walk test* No observ ation record ed. [address] (Resp Services) [facility] [address], [place], [address], 03/13/2023 15:40:58 06/18/20 24 06/18/2024 XR, chest , 2 view No observ ation record ed. [facility] [address], [place], [address], 06/18/2024 11:31:51 06/18/2006/18/2024 CT, chest , w/o contr ast No observ ation record ed. [email or web address] [facility] [address] [facility] [address], [place], [address], 06/18/2024 14:42:44 06/19/2006/19/2024 , echo ardio gram No observ ation record ed. [email or web address] [facility] [address] [facility] [address], [place], [address], 07/02/2024 10:33:35 Result Notes None recorded. Problems Name Problem SNOMED Code Status Onset Date Resolution Date Notes Provider Name and Address Organization Details Recorded Time Pain of bilateral hands 6539727824067 9109 Active 2022 VICKIE Melendez [address], [address], [place], [address], [employer] 3 12:10:47 Chronic obstructive pulmonary disease 78455233 Active 2022 VICKIE Melendez [address], [address], [place], [address], [employer] 3 12:10:54 Methampheta mine abuse 416922205 Active 2022 VICKIE Melendez [address], [address], [place], [address], [employer] 3 12:11:04 History of alcohol abuse 193281974 Active 2022 VICKIE Melendez [address], [address], [place], [address], [employer] 3 12:14:09 Mixed anxiety and depressive disorder 445796102 Active 2022 VICKIE Melendez [address], [address], [place], [address], [employer] [facility] 3 12:20:50 Nicotine dependence with current use 888191456 Active 2022 TONYA MelendezC [address], [address], [place], [address], [employer] [facility] [employer] [facility] 3 16:12:37 Vitamin D deficiency 96939724 Active 2022 Blanca Gifford MA null, [employer] [facility] [employer] [facility] 3 14:49:41 Cobalamin deficiency 878622482 Active 2022 Blanca Gifford MA null, [employer] [facility] [employer] [facility] 3 14:50:09 Arthritis of hand 222187603 Active 2022 MIRA Melendez-C [address], [address], [place], [address], [employer] [facility] [employer] 3 14:54:23 Radial styloid tenosynovit is 46846939 Active 2022 IGNACIO Leal [address], [address], [place], [address], [employer] 3 15:42:12 Prediabetes 674974996 Active 2022 TONYA MelendezC [address], [address], [place], [address], [employer] [facility] [employer] [facility] 3 11:01:22 Vitamin B12 deficiency (non anemic) 52635159 Active 2022 TONYA MelendezC [address], [address], [place], [address], [employer] [facility] [employer] 3 11:01:31 Dyspnea on exertion 49567554 Active 2022 PRIYANKA Joyce [address], [address], [place], [address], [employer] [facility] [employer] [facility] 3 12:23:36 Chronic cough 07131926 Active 2022 [facility] [address], [address], [place], [address], [employer] 3 12:23:40 Marijuana user 783078770 Active 2022 [facility] [address], [address], [place], [address], [employer] 3 12:27:53 Seasonal allergic rhinitis 656059095 Active 2022 Latha Torrez RN null, [employer] 3 16:35:47 Severe chronic obstructive pulmonary disease 456811411 Active 2022 PRIYANKA Joyce [address], [address], [place], [address], [employer] 3 11:02:22 Solitary nodule of lung 686775301 Active 2022 [facility] [address], [address], [place], [address], [employer] 3 15:37:45 Chronic respiratory failure 52608416 Active 2022 [facility] [address], [address], [place], [address], [employer] 3 11:40:14 Viral syndrome 343187870 Active 2022 VICKIE Melendez [address], [address], [place], [address], [employer] 3 13:12:39 COVID-19 324197665 Active 2022 Tami Farias null, [employer] [facility] [employer] 3 14:41:25 Problem Notes None recorded. Procedures Surgical History None recorded. Imaging Results Imaging Date Name Status LastModified by Organization Details LastModified Time 03/06/2023 LDCT, chest, for lung cancer screening completed [address] [facility] [address], [place], [address], 03/13/2023 10:46:40 03/06/2023 complete PFT w/ post bronchodilator spirometry* completed [address] (Resp Services) [address] [place] [address] [address], [place], [address], 03/13/2023 10:46:00 03/06/2023 complete PFT w/ post bronchodilator spirometry* completed [address] (Resp Services) [address] [place] [address] [address], [place], [address], 03/13/2023 10:46:20 03/06/2023 six minute walk test* completed [address] (Resp Services) [address] [place], [place] [address], [place], [address], 03/13/2023 15:40:58 06/18/2024 XR, chest, 2 view completed [address] [place] [address], [address], 06/18/2024 11:31:51 06/18/2024 CT, chest, w/o contrast completed [address], [place], [address], 06/18/2024 14:42:44 06/19/2024 US, echocardiogram completed [address], [place], [address], 07/02/2024 10:33:35 Procedure Notes None recorded. Medical Equipment None Reported. Allergies No known drug allergies Medications Name Sig Start Date Stop Date Status Note LastModified by Organization Details LastModified Time albuterol sulfate 2.5 mg/3 mL (0.083 %) solution for nebulizatio n Inhale 3 mL 3 times a day by nebulizat ion route as directed for 30 days. active Not Available Not Available No t Available prednisone 20 mg tablet TAKE 2 TABLETS BY MOUTH EVERY DAY FOR 5 DAYS 11/23 completed Not Available Not Available Not Available cyanocobala min (vit B-12) 500 mcg tablet Take 1 tablet every day by oral route. 2022 active Not Available Not Available Not Avai lable Kenalog 10 mg/mL suspension for injection Take 2 mL by injection route. 12/20 completed [facility]: 0003- [phone]- 20 Not Available Not Available Not Available benzonatate 100 mg capsule TAKE 1 CAPSULE BY MOUTH EVERY 8 HOURS NEEDED 11/23 completed Not Available Not Available Not Available ergocalcife rol (vitamin D2) 1,250 mcg (50,000 unit) capsule TAKE 1 CAPSULE BY MOUTH EVERY WEEK active Not Available Not Available No t Available albuterol sulfate HFA 90 mcg/actuati on aerosol inhaler INHALE 2 PUFFS BY MOUTH EVERY 4 HOURS NEEDED active Not Available Not Available No t Available doxycycline hyclate 100 mg tablet TAKE 1 TABLET BY MOUTH TWICE DAILY FOR 10 DAYS 11/23 completed Not Available Not Available Not Available loratadine 10 mg tablet TAKE 1 TABLET BY MOUTH EVERY DAY active Not Available Not Available No t Available ropivacaine (PF) 5 mg/mL (0.5 %) injection solution Take 2 mL by injection route. 12/20 completed Not Available Not Available Not Available Anoro Ellipta 62.5 mcg-25 mcg/actuati on powder for inhalation INHALE 1 PUFF BY MOUTH EVERY DAY active Not Available Not Available No t Available Trelegy Ellipta 200 mcg-62.5 mcg-25 mcg powder for inhalation Inhale 1 puff every day by inhalatio n route as directed for 30 days. 2022 active Not Available Not Available Not Avai lable Paxlovid 300 mg (150 mg x 2)-100 mg tablets in a dose pack TK 2 NIRMATREL VIR TS AND 1 RITONAVIR T TOGETHER PO TWICE DAILY FOR 5 DAYS active Not Available Not Available No t Available Vitals Date Recorded Body height Body mass index (BMI) Body weight Body temperature Heart rate Oxygen saturation Oxygen saturation in Arterial blood by Pulse oximetry Systolic blood pressure Diastolic blood pressure Provider Name and Address Organization Details Last Updated DateTime 3 167.64 cm 18.9 kg/m2 19827.3 1 g 97.1 [degF] 89 /min 98 % 98 % 120 mm[Hg] 64 mm[Hg] Jodie Royal [facility] [employer] [facility] 3 11:53:45 Date Recorded Body height Body mass index (BMI) Body weight Body temperature Heart rate Oxygen saturation Oxygen saturation in Arterial blood by Pulse oximetry Systolic blood pressure Diastolic blood pressure Provider Name and Address Organization Details Last Updated DateTime 3 167.64 cm 18.7 kg/m2 57091.7 1 g 98.2 [degF] 80 /min 98 % 98 % 134 mm[Hg] 82 mm[Hg] Blanca Gifford MA [facility] [employer] [facility] 3 11:40:40 Date Recorded Body height Body weight Heart rate Oxygen saturation Oxygen saturation in Arterial blood by Pulse oximetry Body temperature Systolic blood pressure Diastolic blood pressure Provider Name and Address Organization Details Last Updated DateTime 3 167.64 cm 38553.5 3 g 91 /min 96 % 96 % 98.4 [degF] 116 mm[Hg] 70 mm[Hg] Latha Torrez RN [facility] [employer] [facility] 3 10:38:10 Date Recorded Body height Body mass index (BMI) Body weight Body temperature Heart rate Oxygen saturation Oxygen saturation in Arterial blood by Pulse oximetry Systolic blood pressure Diastolic blood pressure Provider Name and Address Organization Details Last Updated DateTime 3 167.64 cm 18.6 kg/m2 29906.1 2 g 98 [degF] 96 /min 94 % 94 % 118 mm[Hg] 72 mm[Hg] Latha Torrez RN [facility] [employer] [facility] 3 11:15:52 Date Recorded Body height Body mass index (BMI) Body weight Body temperature Heart rate Oxygen saturation Oxygen saturation in Arterial blood by Pulse oximetry Systolic blood pressure Diastolic blood pressure Provider Name and Address Organization Details Last Updated DateTime 3 167.64 cm 19.5 kg/m2 38554.6 8 g 98.4 [degF] 98 /min 92 % 92 % 132 mm[Hg] 78 mm[Hg] Blanca Gifford MA [facility] [employer] [facility] 3 12:08:19 Social History Question Answer Notes LastModified by Organization Details LastModified Time Tobacco Smoking Status Current Every Day Smoker CHRIS [place] [facility] [employer] 11/23/2022 12:02:21 What Is Your Level Of Alcohol Consumption? None Recovering Alcoholic Quit A Year Ago Now [email or web address] Information not available 01/24/2023 What Is Your Level Of Caffeine Consumption? Heavy Information not available 11/23/2022 In The 14 Days Before Symptom Onset, Have You Had Close Contact With A Laboratory-conf irmed COVID-19 While That Case Was Ill? No Information not available 01/31/2023 In The 14 Days Before Symptom Onset, Have You Had Close Contact With A Person Who Is Under Investigation For COVID-19 While That Person Was Ill? No Information not available 01/31/2023 Are You Currently Employed? No Disability Information not available 11/23/2022 What Type Of Diet Are You Following? REGULAR Information not available 11/23/2022 Which Illicit Or Recreational Drugs Have You Used? Marijuana Smokes [place] [email or web address] Information not available 01/24/2023 Do You Or Have You Ever Used E-cigarettes Or Vape? Former User Of Electronic Cigarettes [email or web address] Information not available 01/24/2023 What Is The Highest Grade Or Level Of School You Have Completed Or The Highest Degree You Have Received? VS24963-4 Information not available 11/23/2022 Have There Been Any Changes To Your Family Or Social Situation? No Information not available 11/23/2022 What Is The Fluoride Status Of Your Home? Unknown Information not available 11/23/2022 Are There Any Guns Present In Your Home? No Information not available 11/23/2022 How Many Years Have You Used Illicit Or Recreational Drugs? 40 [email or web address] Information not available 01/24/2023 Do You Use Insect Repellent Routinely? Yes Information not available 11/23/2022 Where Do You Live? SingleLevelHouse Information not available 11/23/2022 What Was The Date Of Your Most Recent Tobacco Screening? 06/06/2023 Information not available 06/06/2023 What Is Your Current Pack Years? [email or web address] Information not available 01/24/2023 Do You Have Any Pets? No Information not available 11/23/2022 What Is Your Relationship Status? Single Information not available 11/23/2022 Do You Use Your Seat Belt Or Car Seat Routinely? Yes Information not available 11/23/2022 Do You Have Smoke And Carbon Monoxide Detectors In Your Home? Yes Information not available 11/23/2022 At What Age Did You Start Smoking Tobacco? 13 [email or web address] Information not available 01/24/2023 Are You Passively Exposed To Smoke? Yes Information not available 11/23/2022 Do You Or Have You Ever Used Smokeless Tobacco? Former Smokeless Tobacco User [email or web address] Information not available 01/24/2023 Are There Any Smokers In Your House? Yes Information not available 11/23/2022 How Much Tobacco Do You Smoke? 0.25 PPD One Pack Every 3-4 Days [email or web address] Information not available 01/24/2023 Do You Feel Stressed (tense, Restless, Nervous, Or Anxious, Or Unable To Sleep At Night)? [id number] Information not available 11/23/2022 Do You Use Any Illicit Or Recreational Drugs? Yes Cannabis Edibles Meth Information not available 11/23/2022 Do You Use Sunscreen Routinely? No Information not available 11/23/2022 How Many Years Have You Smoked Tobacco? 40 [email or web address] Information not available 01/24/2023 Have You Recently Traveled Abroad? No Information not available 01/31/2023 Have You Used IV Drugs? No Information not available 11/23/2022 Do You Have Any Dietary Restrictions? No Information not available 11/23/2022 Do You Or Have You Ever Used Any Other Forms Of Tobacco Or Nicotine? Yes Information not available 01/24/2023 Sex: Unknown Functional Status None recorded. Mental Status None recorded. Family History Relationship Description Onset Age of this Age Resolved Age Notes LastModified by Organization Details LastModified Time Mother Family history of stroke Not available 2022 11:59:55 Father Dementia Not available 11/23/2022 12:00:05 Father Alzheimer's disease Not available 2022 12:00:18 Medical History Condition Response ARTHRITIS Y COPD Y Past Encounters Encounter ID Performer Location Encounter Start Date Encounter Closed Date Diagnosis/Indication Diagnosis SNOMED-CT Code Diagnosis ICD10 Code Diagnosis Note [id number] Naheed VICKEI Shine [facility] [address] [facility] [place] [address] 11/23/2022 11:43:23 11/23/2022 12:41:16 Pain of bilateral hands 6866303745 9123229 M79.641 M79.642 get XRfurther plan based on result Chronic ob structive pulmonary disease 06435296 J44.9 start Anoro, continue prn albuterolg et appt with pulm for further workup/man agement 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 If he does not, I have told him he will be discharged from my care. Screening for disorder 309117503 Z13.9 Screening for malignant neoplasm of prostate 173853584 Z12.5 History of alcohol abuse 607320905 F10.10 now sobercheck labs Mixed anxi ety and depressive disorder 262758895 F41.8 get appt with psychiatry - [facility] at [place] Screening for malignant neoplasm of colon 123167205 Z12.11 Pt refuses screening colonoscop y but agrees to Cologuard. All risks explained to him, including that Cologuard may miss 8% of cancers. Needs assi stance at home 202713757 Z74.2 gave him the number for [place] dept of Aging so he can call and set up an assessment for home care services4- Adult [facility] th examination 909495540 Z00.01 Depression screening 171 634053 Z13.31 Nicotine d ependence with current use 641608394 F17.200 3 min spent with patient discussing risks, cessation options. Patient encouraged to quit. Will need LDCT, but for now will defer this to pulm in case they want high res CT Body mass index less than 20 900379287 Z68.1 recommend healthy, well balanced mealsfocus on lean meats, fresh vegetables , fresh fruits, whole grainsredu ce fast/proce ssed foods or eating out to no more than 1-2 times per weekwill likely be a candidate for pulm rehab once he sees pulmonary [id number] Naheed R[address], [employer] [facility] Fantasma hernandez [address] , [place] [address] 12/20/2022 10:53:43 12/20/2022 11:49:02 Pain of bilateral hands 2999400018 5062266 M79.641 M79.642 now following hand surgery- Dr. Miguel/melanie pearlalog shot Chronic ob structive pulmonary disease 37553445 J44.9 on Anoro, continue prn albuterolg et appt with pulm for further workup/man agement Methamphetamine abuse 69 0848205 F15.10 recommend substance abuse program at [place] advised him he must be under the care of a psychiatri st if he is wanting to continue to see me, he agrees to do so. If he does not, I have told him he will be discharged from my care. History of alcohol abuse 848726485 F10.10 now sobercheck labs Mixed anxi ety and depressive disorder 308156024 F41.8 get appt with psychiatry as abovecall office if any change in mood or behavior Screening for malignant neoplasm of colon 196041975 Z12.11 Pt refuses screening colonoscop y but agrees to Cologuard. All risks explained to him, including that Cologuard may miss 8% of cancers. Needs assi stance at home 563819397 Z74.2 gave him the number for [place] dept of [place]ging so he can call and set up an assessment for home care services3- Nicotine d ependence with current use 094888128 F17.200 3 min spent with patient discussing risks, cessation options. Patient encouraged to quit. Will need LDCT, but for now will defer this to pulm in case they want high res CT Body mass index less than 20 218459431 Z68.1 recommend healthy, well balanced mealsfocus on lean meats, fresh vegetables , fresh fruits, whole grainsredu ce fast/proce ssed foods or eating out to no more than 1-2 times per weekwill likely be a candidate for pulm rehab once he sees pulmonary Prediabetes [id number] R7 3.03 work on reducing sugar, switch sugar sweetened beverages to dietwork on a more balanced dietexerci se as tolerated Vitamin D deficiency 347 02278 E55.9 on supplement Vitamin B1 2 deficiency (non anemic) 35502105 E53.8 on supplement [id number] IGNACIO Leal [facility] [place] [address] [place] [address] 12/19/2022 13:57:59 12/19/2022 15:55:49 Pain of bilateral hands [id number] 0972157 M79.641 M79.642 Radial sty loid tenosynovitis 88890654 M65.4 [id number] MIRA Joyce-BC [facility] [place] [address] [place] [address] 01/24/2023 11:46:37 01/24/2023 14:31:38 Chronic obstructive pulmonary disease 04082922 J44.9 Need updated testing - [facility] six minute walk testingCon david Alegre at this time - instructed on techniqueC ontinue albuterol PRN - discussed indication s for use Dyspnea on exertion 6084 5006 R06.09 Check labsHe must stop smoking and illegal drug use Chronic cough 43706044 R 05.3 [facility] Methamphetamine abuse 69 6521233 F15.10 Continues to smoke methamphet amine, although he reports he is not a daily user anymore.La st UDS per PCM + Nicotine dependence 5629 4008 Z87.891 Smoking cessation counseling and techniques reviewed at length. L iterature reviewed.A void triggers, support groups.Dis traction techniques Greater than 3 but less than 10 minutes spent discussing cessation. Declines NRT.Discus sed Rx options if needed in the future.Cee ck LDCT Marijuana user 311707490 F12.90 Continues use intermitte ntlyI have advised alternate methods of use [id number] VICKIE Melendez [facility] [place] [address] [facility] [place] [address] 01/31/2023 11:30:44 01/31/2023 12:02:16 Pain of bilateral hands [id number] M79.641 M79.642 now following hand surgery- Dr. 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 Patient encouraged to quit. LDCT ordered by pulm Body mass index less than 20 554508515 Z68.1 recommend healthy, well balanced mealsfocus on lean meats, fresh vegetables , fresh fruits, whole grainsredu ce fast/proce ssed foods or eating out to no more than 1-2 times per weekwill likely be a candidate for pulm rehab once he sees pulmonary Prediabetes 138168409 R7 3.03 work on reducing sugar, switch sugar sweetened beverages to dietwork on a more balanced dietexerci se as tolerated Vitamin D deficiency 347 77484 E55.9 on supplement Vitamin B1 2 deficiency (non anemic) 54232160 E53.8 on supplement [id number] Mary Muhammad, [facility] [place] [address] [place] [address] 03/13/2023 10:34:46 03/13/2023 14:33:02 Severe chronic obstructive pulmonary disease 753837545 J44.9 PFT completed 03/06/23 with severe obstructio n, ratio 30FEV1 3030% improvemen t after BDStart Trelegy Ellipta 200 ine puff daily.Inst ructed on technique, he took a dose in office todayRX for albuterolS ix minute walk testing completed. He requires 2 liters with activity.O rdered todayRTC in 5-6 weeks Dyspnea on exertion 6084 5006 R06.09 Check labs - reordered todayHe must stop smoking and illegal drug use Chronic cough 07801243 R 05.3 Multifacto ralLabs as above Methamphetamine abuse 69 2183549 F15.10 Continues to smoke methamphet amine, although he reports he is not a daily user anymore.En couraged complete cessation Marijuana user 909410763 F12.90 Continues use intermitte ntlyI have advised alternate methods of use Nicotine dependence 5629 4008 Z87.891 Smoking cessation counseling and techniques reviewed at length. L iterature reviewed.A void triggers, support groups.Dis traction techniques Greater than 3 but less than 10 minutes spent discussing cessation. Declines NRT.Discus sed Rx options if needed in the future.LDC T completed as detailed above Solitary n odule of lung 324835766 R91.1 [address]mm [address] RUL per CT 02/2023 [id number] Mary Muhammad, [facility] [place] [address] [place] [address] 04/24/2023 11:03:09 04/24/2023 12:05:10 Severe chronic obstructive pulmonary disease 988117694 J44.9 PFT completed 03/06/23 with severe obstructio n, ratio 30FEV1 3030% improvemen t after BDContinue Trelegy Ellipta 200 ine puff daily.Albu terol PRNSix minute walk testing completed. He requires 2 liters with activity.O rdered at last OVRTC in about 3 months Dyspnea on exertion 6084 5006 R06.09 Check labs - reprinted todayHe must stop smoking Chronic cough 55855864 R 05.3 Multifacto ralLabs as above Solitary n odule of lung 186968024 R91.1 [address] RUL per CT 02/2023 Methamphetamine abuse 69 0032738 F15.10 Encouraged continued cessation Marijuana user 160314781 F12.90 I have advised alternate methods of use Nicotine dependence 5629 4008 Z87.891 Smoking cessation counseling and techniques reviewed at length. L iterature reviewed.A void triggers, support groups.Dis traction techniques Greater than 3 but less than 10 minutes spent discussing cessation. Declines NRT.Discus sed Rx options if needed in the future.LDC T completed as detailed above Chronic re spiratory failure 58570709 J96.10 Discussed NIV in detailKen needs a ventilator due to chronic respirator y failure due to COPD and will need it nocturnall y and daytime as requiredBI PAP has been considered and ruled out due to the severity of the patient's disease 7411160 Naheed Shine, [facility] [place] hern[facility] [address] [facility] [address] [place] [address] 06/06/2023 11:59:44 06/06/2023 12:46:45 Pain of bilateral hands [id number] 2682723 M79.641 M79.642 now following hand surgery- Dr. Cpopola/now Dr. Teague/p kenalog shot Chronic ob structive pulmonary disease 41749488 J44.9 on Trelegy, continue prn albuterolo n O2-stresse d the importance of wearing this as prescribed following pulm- Mary Muhammad Methamphetamine abuse 69 7034205 F15.10 recommend substance abuse program at [facility]- he has psychiatry referral for them, encouraged him to schedule History of alcohol abuse 926111567 F10.10 now sober Mixed anxi ety and depressive disorder 166206584 F41.8 get appt with psychiatry as abovecall office if any change in mood or behavior Needs assi stance at home 094589508 Z74.2 gave him the number for [place] dept [place] so he can call and set up an assessment for home care services6- Nicotine d ependence with current use 474649930 F17.200 3 min spent with patient discussing risks, cessation options. Patient encouraged to quit. LDCT ordered by pulm Body mass index less than 20 916051400 Z68.1 recommend healthy, well balanced mealsfocus on lean meats, fresh vegetables , fresh fruits, whole grainsredu ce fast/proce ssed foods or eating out to no more than 1-2 times per weekwill likely be a candidate for pulm rehab once he sees pulmonary Prediabetes 406855124 R7 3.03 work on reducing sugar, switch sugar sweetened beverages to dietwork on a more balanced dietexerci se as tolerated Vitamin D deficiency 347 27975 E55.9 on supplement Vitamin B1 2 deficiency (non anemic) 25870689 E53.8 on supplement Viral syndrome 604210681 B34.9 I have advised him we do not have COVID test in the office nor do we have strep her flu test here todayI have offered to get him tested for all 3 down at [place], he tells me he does not want to go down there.I have recommende d he can either get tested at the urgent care or if he feels he is sick enough go to the ER. He refuses both. He tells me he wants to go home and take a COVID test and then will call us back with resultsER precaution s discussedW ill await his call back, he will need paxlovid if covid positive Health Concerns Section Related Observation LastModified by Organization Detai ls LastModified Time None Recorded Concern Status LastModified by Organization Details LastModified Time None Recorded Advance Directives Directive None Recorded Payers Encounter Date Sequence Insurance Name Policy Number Policy Abreu Covered Member ID Abreu Member ID Guarantor Name 01/24/2023 1 [facility] (MEDICAID HMO) [id number] Buxton Mayabb [id number] Buxton Mayabb 01/31/2023 1 [facility] (MEDICAID HMO) [id number] 0003 Buxton Mayabb [id number] Buxton Mayabb 03/13/2023 1 [facility] (MEDICAID HMO) [id number] Nelson Mayabb [id number] Nelson Mayabb 04/24/2023 1 [facility] (MEDICAID HMO) [id number] Buxton Mayabb [id number] Buxton Mayabb 06/06/2023 1 [facility] (MEDICAID HMO) [id number] 0003 Buxton Mayabb [id number] Buxton Januaryb Notes Date Note Type Note Provider Name and Address Organization Details Recorded Time 01/24/2023 text/html Mr Graff presen ts today to establish care for further evaluation of COPD, dyspnea, cough, tobacco dependenceHe tells me that he was tested with PFT for disability years ago.Recently started Anoro and tells me he has good benefit with decreased albuterol and improved activity toleranceHe has difficulty with stairs and hillsAlso has difficulty with carrying objects and rushing through activitiesNo dyspnea at restHe can dress and bathe without much dyspneaHas altered routines to avoid shortness of breathCough has improved with Anoro but continues to be mildly productiveDenies hemoptysis.No night sweats or unintentional weight loss.He sleeps in a recliner - prior to Anoro he felt like he could not breathe laying down.Quit ETOH 1 year agoContinues to smoke methamphetamine and marijuana, denies daily useAlso smokes about 1/4 pack of cigarettes per day.Endorses symptoms that are weather dependent.Also has reactions to strong scents.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 He reports a marked improvement in his breathing since starting the Anoro inhaler. He has been able to reduce his use of the albuterol significantly. He now reports he is able to sleep laying down when before he could only sleep in a recliner due to his shortness of breath. He did see pulmonology. They have ordered additional testing. He tells me he has a scheduled for next month. He reports his mood is been a lot better lately. He has been working on reconciling his relationships with his 2 daughters. He has started having regular communication with his younger daughter and she has come to visit him. This has been really helpful for his mental health. He has also been working on reconciling the relationship with his older daughter, this is more difficult as his older daughter has bipolar disorder. He does continue to smoke cigarettes. He is using cannabis. He tells me that he is drastically reduce the use of methamphetamine. He is still sober from alcohol. He has not yet made his appointment with the substance abuse psychiatrist. He does have referral for that. He denies any SI or HI today. He still having issues with his bilateral hands. He did see Hand surgery who gave him a Kenalog injection. He was instructed to follow back up if his pain persisted or got worse. We will help him get another appointment. Naheed Shine, [facility] [address], [place], [address], [employer] 01/31/2023 12:21:35 03/13/2023 text/html Mr Graff presannalee ts today to follow up on COPD, dyspnea, cough, tobacco dependence, testingContinues Anoro and tells me he has good benefit with decreased albuterol and improved activity toleranceContinues to use rescue MDI frequentlyThinks his nebulizer solution is .He has difficulty with stairs and hillsAlso has difficulty with carrying objects and rushing through activitiesReports that playing the drums seems to cause him the most difficulty.No dyspnea at restHe can dress and bathe without much dyspneaHas altered routines to avoid shortness of breathCough is daily.Continues to smoke about 1/4 to 1/2 PPDDenies hemoptysis, night sweats or unintentional weight loss.Continues to smoke methamphetamine and marijuana, denies daily useNo respiratory exacerbation since he was last seen Mary Muhammad, [facility] [address], [place], [address], [employer] 03/13/2023 15:40:21 04/24/2023 text/html Mr Dajuan mcguire ts today to follow up on new medications, COPD, dyspnea, cough, tobacco dependence, testingHe is doing well on Trelegy Ellipta and tells me he can breathe easier and his cough is decreasedContinues to use rescue MDI but less frequentlyHe denies illegal drug use.Continues to smoke about 1/2PPDHe continues to have difficulty with stairs and hillsReports that playing the drums seems to cause him the most difficulty.He played a show 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 He reports he was started on oxygen by the butter wrapper. He is not wearing his oxygen today. His O2 sat is 92%. He has not yet made his appointment with the psychiatrist. He denies any SI or HI today. He reports he has been sick for about 2 days with upper respiratory symptoms. He reports cough, fever, increased shortness of breath over his baseline SOB, nausea but no vomiting, and fatigue. He tells me he almost went to the emergency room the day before yesterday as he felt so poorly. He also lost his albuterol inhaler so he has not had that around to use. He tells me he does have a COVID test at home but has not taken it. VICKIE Melendez [address], [facility] [address], [place], [address], [facility] [employer] 06/06/2023 13:18:59
--- OUTSIDE RECORDS SUMMARY | 2025-01-02 07:28 | XMS_ITS | Data Portability ---
Author Organization [facility] Address [address] [place] [address] Care Team Providers Care Marketing Developer Name Role Phone KIMMIE EMERY Primary Care Provider Assessment Encounter Date Assessment Date Assessment LastModified by Organization Details LastModified Time 04/18/2019 04/18/2019 Father after a long illness; patient was his primary caregiver and is still grieving and caring for his mother, who is in poor health. [email or web address] Not available 04/19/2019 23:14:25 12/15/2019 12/15/2019 cutting down on smoking. still drinking alcohol. Has been staying home. Mother has a sprained ankle and can't get out, patient does not drive. Advised stay home, avoid crowds. Not available 12/15/2019 11:36:24 Plan of Treatment Reminders Order Date Submit Date Provider Last Modified By Organization Details Last Modified Time Details Appointments None recorded. Lab alpha-1-a ntitrypsi n (aat), QN, serum 2018 019 ESA [facility], [address], [address] [address], [place], [address], 9 11:45:34 Referral ophthalmo logist referral 2019 020 EDIN Enrique MD, [address], [place], [address], 0 09:26:12 overnight pulse oximetry referral 2018 019 EDIN Rios [facility] [place], [address] [facility] , [place], [address], 0 10:11:00 Procedures None recorded. Surgeries None recorded. Imaging None recorded. Medication Orders albuterol sulfate HFA 90 mcg/actua tion aerosol inhaler 2019 [facility]42290, [address], [place], [id number], 0 11:37:02 Spiriva with HandiHale r 18 mcg and inhalatio n capsules 2019 [facility] #16292, [address], [place], [id number], 1 13:52:52 Symbicort 160 mcg-4.5 mcg/actua tion HFA aerosol inhaler 2019 [facility] #26819, [address], [place], [id number], 1 13:52:57 Spiriva with HandiHale r 18 mcg and inhalatio n capsules 2018 019 [facility] #25603, [address], [place], [id number], 1 13:52:52 Ventolin HFA 90 mcg/actua tion aerosol inhaler [address] [facility] #86161, [address], [place], [id number], 9 11:42:56 Symbicort 160 mcg-4.5 mcg/actua tion HFA aerosol inhaler 2018 019 [facility] #79081, [address], [place], [id number], 1 13:52:57 prednison e 10 mg tablet 2018 019 [facility], [address] [place] [address], [address], 1 11:50:45 nicotine 21 mg/24 hr daily transderm al patch 2018 019 [email or web address] [facility], [address] [place] [address], [address], 0 11:15:45 Ventolin HFA 90 mcg/actua tion aerosol inhaler 2018 019 [email or web address] [facility]29115, [address], [place], [id number], 9 11:26:21 AirDuo RespiClic k 232 mcg-14 mcg/actua tion breath activated 2018 019 [email or web address] [facility], [address] [place] [address], [address], 9 11:23:42 Ventolin HFA 90 mcg/actua tion aerosol inhaler 2018 019 INTERFACE [facility] #67589, [address], [place], [id number], 9 17:42:40 amoxicill in 875 mg-potass ium clavulana te 125 mg tablet 2018 019 [facility]32062, [address], [place], [id number], 1 11:51:10 prednison e 10 mg tablet 2018 019 [facility] #70457, [address], [place], [id number], 1 11:50:45 Patient TargetsNo targets recorded. Patient Instructions Encounter Date Encounter Id Patient Instructions Last Modified By Organization Details Last Modified Time 04/18/2019 [id number] Quitting Tobacco : Care Instructions [email or web address] Not available 04/18/2019 10:40:45 chronic obstructive pulmonary disease (COPD): care instructions Not available 04/18/2019 10:37:13 learning about copd and how to prevent lung infections [email or web address] Not available 04/18/2019 10:37:13 07/03/2019 [id number] complete PFT w/ post bronchodilator spirometry* [email or web address] Not available 09/26/2019 13:40:22 12/15/2019 [id number] reduced vision: care instructions [email or web address] Not available 12/15/2019 11:35:08 chronic obstructive pulmonary disease (COPD): care instructions [email or web address] Not available 12/15/2019 11:35:08 learning about copd and how to prevent lung infections [email or web address] Not available 12/15/2019 11:35:08 04/29/2020 [id number] chronic obstructive pulmonary disease (COPD): care instructions [email or web address] Not available 04/29/2020 16:44:03 learning about copd and how to prevent lung infections [email or web address] Not available 04/29/2020 16:44:04 Reason for Referral Overnight Pulse Oximetry Ref erral for Sleeps in sitting position due to orthopnea Referring Physician: Kimmie Emery [facility], Encounter Date: 07/03/2019 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 [facility] ([facility]) [address] [facility] [address] [place] [address], [address], 03/14/2019 12:35:44 05/23/20 19 05/16/2019 XR, elbow , 3 or more view No observ ation record ed. [address], [address], 07/06/2019 22:37:45 05/26/20 19 05/16/2019 XR, elbow , 3 or more view No observ ation record ed. [email or web address] [address] [place] [address], [address], 07/06/2019 22:37:45 02/02/20 21 02/01/2021 XR, chest , 2 view No observ ation record ed. [address] [address], [place], [address], 02/01/2021 14:23:14 02/05/20 21 02/04/2021 XR, chest No observ ation record ed. [address] [address], [place], [address], 02/21/2021 11:34:52 Result Notes None recorded. Problems Name Problem SNOMED Code Status Onset Date Resolution Date Notes Provider Name and Address Organization Details Recorded Time Chronic obstructive pulmonary disease 77109267 Active 019 Kimmie Emery MD Attn: Gilles acosta,[address] [facility], [place], [address] 9 23:17:07 Problem Notes None recorded. Procedures Surgical History None recorded. Imaging Results Imaging Date Name Status LastModified by [facility] Details LastModified Time 03/07/2019 XR, chest, 2 view completed [facility] ([facility]) [address] [place] [address], [address], 03/14/2019 12:35:44 05/16/2019 XR, elbow, 3 or more view completed [address], [address], 07/06/2019 22:37:45 05/16/2019 XR, elbow, 3 or more view completed [address], [address], 07/06/2019 22:37:45 02/01/2021 XR, chest, 2 view completed [address], [place], [address], 02/01/2021 14:23:14 02/04/2021 XR, chest completed [facility] [address] [facility] [address], [place], [address], 02/21/2021 11:34:52 Procedure Notes None recorded. Medical Equipment None Reported. Allergies No known drug allergies Medications Name Sig Start Date Stop Date Status Note LastModified by Organization Details LastModified Time Prescriptio n - Prior Authorizati on Request 04/29 completed Not Available Not Available Not Available prednisone 10 mg tablet take in the morning with food in your stomach, 6,6,5,5,4 ,4,3,3,2, 2,1, and 1 08/23 completed Not Available Not Available Not Available azithromyci n 250 mg tablet TK 2 TS PO ON DAY 1, THEN TK 1 T PO D FOR 4 DAYS 08/23 completed Not Available Not Available Not Available ibuprofen 800 mg tablet 07/03 completed Not Available Not Available Not Available benzonatate 200 mg capsule Take 1 capsule 3 times a day by oral route as needed. 07/03 completed Not Available Not Available Not Available clarithromy sharla 500 mg tablet Take 1 tablet every 12 hours by oral route. 04/29 completed Not Available Not Available Not Available prednisone 20 mg tablet TAKE 2 TABLETS BY MOUTH EVERY DAY FOR 5 DAYS active Not Available Not Available No t Available thiamine HCl (vitamin B1) 100 mg tablet Take 1 tablet every day by oral route. 07/03 completed Not Available Not Available Not Available benzonatate 100 mg capsule TAKE 1 CAPSULE BY MOUTH EVERY 8 HOURS NEEDED active Not Available Not Available No t Available cephalexin 500 mg capsule 12/14 completed Not Available Not Available Not Available nicotine 21 mg/24 hr daily transdermal patch Apply 1 patch every day by transderm al route. 12/14 completed Not Available Not Available Not Available montelukast 10 mg tablet Take 1 tablet every day by oral route. 07/03 completed Not Available Not Available Not Available albuterol sulfate HFA 90 mcg/actuati on aerosol inhaler INHALE 2 PUFFS BY MOUTH EVERY 4 HOURS NEEDED active Not Available Not Available No t Available doxycycline hyclate 100 mg tablet TAKE 1 TABLET BY MOUTH TWICE DAILY FOR 10 DAYS active Not Available Not Available No t Available amoxicillin 875 mg-potassiu m clavulanate 125 mg tablet TAKE 1 TABLET BY MOUTH EVERY 12 HOURS 08/23 completed Not Available Not Available Not Available nicotine 7 mg/24 hr daily transdermal patch 05/16 completed Not Available Not Available Not Available bupropion HCl XL 150 mg 24 hr tablet, extended release 05/16 completed Not Available Not Available Not Available Spiriva with HandiHaler 18 mcg and inhalation capsules Inhale 1 capsule every day by inhalatio n route. 07/12 completed Not Available Not Available Not Available acamprosate 333 mg tablet,michael yed release Take 2 tablets 3 times a day by oral route. 07/03 completed Not Available Not Available Not Available Symbicort 160 mcg-4.5 mcg/actuati on HFA aerosol inhaler Inhale 1 puff twice a day by inhalatio n route. 07/12 completed Not Available Not Available Not Available Suprep Bowel Prep Kit 17.5 gram-3.13 gram-1.6 gram oral solution Take 300 mL by oral route for 1 day. 11/12 completed Not Available Not Available Not Available Breo Ellipta 200 mcg-25 mcg/dose powder for inhalation Inhale 1 puff every day by inhalatio n route. 07/03 completed Not Available Not Available Not Available fluticasone 232 mcg-salmete rol 14 mcg/actuati on breath activated powdr Inhale 1 puff twice a day by inhalatio n route. 07/03 completed Not Available Not Available Not Available Vitals Date Recorded Body height Body mass index (BMI) Body weight Pain severity - 0-10 verbal numeric rating [Score] - Reported Body temperature Oxygen saturation Oxygen saturation in Arterial blood by Pulse oximetry Heart rate Provider Name and Address Organization Details Last Updated DateTime 9 167.64 cm 20.3 kg/m2 14698.6 4 g 6 98.7 [degF] 95 % 95 % 106 /min Winifred Becker [place] - [facility] 9 17:14:16 Date Recorded Body height Body mass index (BMI) Body weight Oxygen saturation Oxygen saturation in Arterial blood by Pulse oximetry Heart rate Body temperature Systolic blood pressure Diastolic blood pressure Provider Name and Address Organization Details Last Updated DateTime 9 167.64 cm 19.9 kg/m2 99580.9 6 g 94 % 94 % 89 /min 98.1 [degF] 104 mm[Hg] 74 mm[Hg] Hayde Torres MA [facility] 9 10:15:55 Date Recorded Body height Body mass index (BMI) Body weight Body temperature Oxygen saturation Oxygen saturation in Arterial blood by Pulse oximetry Heart rate Systolic blood pressure Diastolic blood pressure Provider Name and Address Organization Details Last Updated DateTime 9 167.64 cm 20.4 kg/m2 37455.3 4 g 98 [degF] 94 % 94 % 90 /min 142 mm[Hg] 86 mm[Hg] Jeniffer Shafer [facility] 9 11:21:28 Date Recorded Body height Provider Name an d Address Organization Details Last Updated DateTime 04/29/2020 167.64 cm Kym Dumont MA [facility] 04/29/2020 16:30:49 Social History Question Answer Notes LastModified by Organizat ion Details LastModified Time Tobacco Smoking Status Current Every Day Smoker Kym Dumont MA null, [facility] 05/16/2018 10:24:18 What Is Your Level Of Alcohol Consumption? Heavy Beer; 15/day; 15-20 Information not available 05/16/2018 What Is Your Level Of Caffeine Consumption? None Information not available 04/18/2019 How Much Tobacco Do You Chew? None Information not available 05/16/2018 Are You Currently Employed? No Information not available 05/16/2018 What Type Of Diet Are You Following? REGULAR Information not available 04/29/2020 Which Illicit Or Recreational Drugs Have You Used? Marijuana Occasional Information not available 04/18/2019 Do You Or Have You Ever Used E-cigarettes Or Vape? Never Used Electronic Cigarettes [email or web address] Information not available 04/19/2019 Education 12 Information no t available 05/16/2018 What Is Your Occupation? Disability Information not available 04/29/2020 Are There Any Guns Present In Your Home? No Information not available 05/16/2018 Live Alone Or With Others? With Others Information not available 05/16/2018 What Was The Date Of Your Most Recent Tobacco Screening? 04/29/2020 Information not available 04/29/2020 How Many Children Do You Have? 2 Information not available 05/16/2018 Seat Belts Used Routinely Yes Information not available 05/16/2018 Smoke Alarm In Home Yes Information not available 05/16/2018 Do You Or Have You Ever Used Smokeless Tobacco? Never Used Smokeless Tobacco [email or web address] Information not available 04/19/2019 How Much Tobacco Do You Smoke? 0.25 PPD 3-4 Daily Information not available 04/29/2020 Do You Use Sunscreen Routinely? No Information not available 05/16/2018 Has Tobacco Cessation Counseling Been Provided? Yes [email or web address] Information not available 04/19/2019 On What Date Was Tobacco Cessation Counseling Provided? 04/29/2020 Information not available 04/29/2020 How Many Years Have You Smoked Tobacco? 40 Plus Years Information not available 05/16/2018 Sex: Unknown Functional Status Question Answer Note LastModified by Organization D etails LastModified Time What is your exercise level? None Information not available 04/29/2020 Mental Status None recorded. Family History Relationship Description Onset Age of this Age Resolved Age Notes LastModified by Organization Details LastModified Time Father Dementia [email or web address] Not availab le 05/16/2018 10:23:56 Mother Depressive disorder [email or web address] Not available 05/16 10:24:01 Mother Diabetes mellitus Type 1 [email or web address] Not available 05/16 10:32:06 Medical History Condition Response Coronary Artery Disease N Other N Atrial Fibrillation N High Blood Pressure N Thyroid Problems N Kidney or Bladder Problems N GI Problems N Depression Y COPD Y Blood Clots N Eating Disorder N Skin Problems N Anemia N Heart Attack ([place]) N Anxiety Disorder N Diabetes N Muscle, Joint, or Bone Problems N Seizures/Epilepsy N Acid Reflux (GERD) N Cancer N Stroke N Asthma Y Allergies Y ADHD N Substance Abuse N High Cholesterol N Hepatitis N Liver Disease N Schizophrenia N Headaches N Heart Failure N Osteoporosis N Past Encounters Encounter ID Performer Location Encounter Start Date Encounter Closed Date Diagnosis/Indication Diagnosis SNOMED-CT Code Diagnosis ICD10 Code Diagnosis Note [id number] Kimmie Emery MD [facility] [address] [place] [address] 05/16/2018 10:03:30 05/16/2018 15:16:23 Left flank pain 976490498 R10.9 may have kidney stones or diverticul itis Alcohol in take above recommended sensible limits 727249398 F10.10 encouraged patient to cut back on alcohol and to take thiamine to protect his brain Nutritional disorder 249 2009 E46 will evaluate for malnutriti on, GI bleeding secondary to alcohol excess Chronic ob structive pulmonary disease 69504744 J44.9 encouraged patient to quit smoking Moderate p ersistent asthma 805212079 J45.40 patient uses albuterol 5-7 times a week, so will add LABA-ICS for prevention of bronchospa sm. Standardiz ed adult depression screening tool completed 5149528271 73772 Z13.89 patient is mildly-mod erately depressed. Body mass index less than 20 067509739 Z68.1 discussed eating a variety of healthy foods and gaining weight and muscle mass. [id number] Kimmie Emery MD [facility] [address] [place] [address] 06/06/2018 12:53:18 06/07/2018 12:35:59 Alcohol abuse 02462429 F10.10 Chronic as thmatic bronchitis 208278697 J44.9 Underweight 429185940 R6 3.6 discussed eating a variety of foods, not skipping meals., taking vitamins, eating as well as drinking beer. [id number] Kimmie Emery MD [facility] [address] [place] [address] 07/09/2018 10:47:12 07/09/2018 12:54:47 Asthma 249923377 J45.909 Left flank pain 64951940 9 R10.9 may have kidney stones or diverticul itis Alcohol abuse 45790928 F 10.10 Noncomplia nce with treatment 2946322 Z91.19 discussed with patient that he needs to get help to quit drinking; reviewed how acamprosat e would work. [id number] Kimmie Emery MD [facility] [address] [place] [address] 08/06/2018 13:50:49 08/22/2018 15:07:09 Chronic asthmatic bronchitis 585340624 J44.9 Screening for malignant neoplasm of colon 904705631 Z12.11 [id number] Kimmie Emery MD [facility] [address] [facility] [place] [address] 11/08/2018 16:38:46 11/13/2018 08:45:05 Chronic asthmatic bronchitis 871296086 J44.9 Acute bila teral otitis media 450168813 H66.93 [id number] Kimmie Emery MD [facility] [address] [facility] [place] [address] 04/18/2019 09:38:38 04/21/2019 09:47:36 Chronic obstructive pulmonary disease 29223311 J44.9 encouraged patient to quit smoking Exposure to mold 3393496 548 7154352 Z77.120 patient and mother had to move out of their house and into an apartment due to mold in the house. Chronic as thmatic bronchitis 814197966 J44.9 discussed how to take a 12 day tapering course of prednisone . Tobacco user 116430961 Z 72.0 [id number] Kimmie Emery MD [facility] [address] [place] [address] 07/03/2019 11:00:46 07/07/2019 13:46:28 Acute exacerbation of chronic obstructive pulmonary disease with asthma 8729439031 100 J44.1 Chronic ob structive pulmonary disease 33981666 J44.9 encouraged patient to quit smoking Sleeps in sitting position due to orthopnea 0323335702 11480 R06.01 Major depr essive disorder 400016621 F32.9 related to chronic health deteriorat ion, alcohol abuse, and addictive behavior traits, such as smoking. [id number] Kimmie Emery MD [facility] [address] [place] [address] 12/15/2019 10:13:54 12/16/2019 10:24:10 Visual impairment 072114217 H54.7 probably presbyopia , but can't rule out cataracts or glaucoma Chronic ob structive pulmonary disease 59603278 J44.9 encouraged patient to quit smoking. Patient has had trouble getting his inhalers. 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 Has been in trouble with [employer] and doesn't know how to block people who are making comments at him. Refuses to see a counselor or take medication s for anxiety and depression . Acute exac erbation of chronic obstructive pulmonary disease with asthma 3374304288 100 J44.1 [id number] Kimmie Emery MD [facility] [address] [place] [address] 04/29/2020 09:32:43 05/10/2020 16:13:21 Chronic obstructive pulmonary disease 02805041 J44.9 encouraged patient to quit smoking. Patient has had trouble getting his inhalers. He has been prescribed albuterol, spiriva, and symbicort. Impaired dentition 29177 4008 K03.9 given list of dental clinics to try to get dentures. Health Concerns Section Related Observation LastModified by Organization Detai ls LastModified Time None Recorded Concern Status LastModified by Organization Details LastModified Time None Recorded Advance Directives Directive None Recorded Payers Encounter Date Sequence Insurance Name Policy Number Policy Abreu Covered Member ID Abreu Member ID Guarantor Name 11/08/2018 1 [facility] (MEDICAID HMO) [id number] [place] [id number] [place] 04/18/2019 1 [facility] (MEDICAID HMO) [id number] [place] [id number] [place] 07/03/2019 1 [facility] (MEDICAID HMO) [id number] [place] [id number] [place] 12/15/2019 1 [facility] (MEDICAID HMO) [id number] [place] [id number] [place] 04/29/2020 1 [facility] (MEDICAID HMO) [id number] 0003 [place] [id number] [place] January[place] Notes Date Note Type Note Provider Name and Address Organization Details Recorded Time 11/08/2018 text/html CoughReported bypatient.Quality:harsh ; ear pressure and decreased hearing Severity:worsening;pain with cough; severe Duration:symptoms lasting over 2 weeks Timing:worse; sudden Context:smoker;worse at night;history of asthma Modifying Factors:inhaler Associated Symptoms:no nausea; no vomiting;fever;chills;c hest pain;heartburn;wheezing ;post nasal drip; diarrhea due to swallowed sputum Kimmie Emery MD Attn: Accounting,[address] [place], [address], [facility] 11/13/2018 00:22:34 04/18/2019 text/html COPDReported bypatient.Onset/Timing: chronic: suddenly much worse Duration:has noted for years; patient has asthma since childhood, copd secondary to smoking, and acute bronchitis after exposure to black mold Severity:very limiting; severe; Uses nebulizer/inhaler an average of 42 times/week lately Quality:symptoms worse in the evening; symptoms worse with lying down Context:cigarette smoking; recurrent bronchopulmonary infections; family history of COPD; mold exposure Alleviating factors:relieved with rest; relieved with bronchodilator Aggravating factors:worse with cigarette smoking;worse in a supine position;worse with exertion Associated Symptoms:no snoring; no excessive daytime sleepiness; no arousals from sleep; no depression;dyspnea;dysp rush during exertion;decrease in exercise capacity;fatigue;coughi ng up sputum;thick, yellow-green sputum;cough;wheezing;w eight loss; sadness and grieving, but not depressed. Kimmie Emery MD Attn: Accounting,[address] [place], [address], [facility] 04/19/2019 23:24:16 07/03/2019 text/html COPDReported bypatient.Onset/Timing: chronic: suddenly much worse Duration:has noted for years; attacks are frequent Severity:very limiting; severe; Uses nebulizer/inhaler an average of 50 times/week lately Quality:symptoms worse with lying down Context:cigarette smoking; recurrent bronchopulmonary infections Alleviating factors:relieved with rest; relieved with bronchodilator Aggravating factors:worse with cigarette smoking;worse in a supine position;worse with exertion Associated Symptoms:excessive daytime sleepiness;dyspnea;dysp rush during exertion;decrease in exercise capacity;fatigue;coughi ng up sputum;thick, yellow-green sputum;cough;fever;whee zing;depression; Patient has a history of drinking alcohol to excess which worsens his depression. COPD...rt elbow injured a month and a half ago. Still a bump on elbow. having problems with anxiety, and depression. Kimmie Emery MD Attn: Accounting, [place], [address], [facility] 07/06/2019 22:48:02 12/15/2019 text/html Anxiety/Depressi onRepor chele bypatient.Quality:mood worse;increased anxiety Severity:denies suicidal ideations;unable to maintain relationships;interfere nce with household activities;interference with sleep;interference with work Duration:symptoms lasting over 2 weeks Onset/Timing:gradual; still present Context:major life stressors;family problems;ETOH use;tobacco use Modifying Factors:social support; medications as directed Associated Symptoms:denies homicidal ideations; no visual/auditory hallucinations;emotiona l lability;high irritability;hostility; anxiety;hypersensitivit y;depression;loneliness ;restlessness/agitation ;sleep disturbances;anhedonia; anxiety with muscle tension;feeling guilty;inability to make decisions;low self-esteem;pessimism;d espair/hopelessness;soc ial withdrawal;decreased effectiveness/productiv ity;flushing;trembling or shaking (tremor);headaches;decr eased libido;paranoid, feeling persecuted;delusions;sh ortness of breathCOPDReported bypatient.Onset/Timing: chronic: suddenly much worse Duration:has noted for years; attacks are frequent Severity:very limiting; Uses nebulizer/inhaler an average of 50 times/week lately Quality:symptoms worse with lying down Context:cigarette smoking; recurrent bronchopulmonary infections; family history of COPD Alleviating factors:relieved with rest; relieved with bronchodilator Aggravating factors:worse with cigarette smoking;worse in a supine position;worse with exertion Associated Symptoms:excessive daytime sleepiness;dyspnea;dysp rush during exertion;decrease in exercise capacity;fatigue;coughi ng up sputum;thick, yellow-green sputum;cough;wheezing;w eight loss;depression Kimmie Emery MD Attn: Accounting,[address] [facility] [place], [address], [place] [facility] 12/16/2019 00:26:23 04/29/2020 text/html COPDReported bypatient.Onset/Timing: multiple times per day; chronic: slowly much worse Duration:has noted for years; attacks are frequent Severity:very limiting Quality:symptoms worse in the evening; symptoms worse with lying down Context:cigarette smoking; recurrent bronchopulmonary infections; occupational exposure; family history of COPD Alleviating factors:relieved with rest Aggravating factors:worse with cigarette smoking;worse in a supine position;worse with exertion Associated Symptoms:dyspnea;dyspne a during exertion;decrease in exercise capacity;fatigue;coughi ng up sputum;thick, yellow-green sputum Kimmie Emery MD Attn: Accounting,[address] , [place], [address], [place] [facility] 05/09/2020 21:39:23
[2025-01-02 08:25] VITALS: PULSE 100
[2025-01-02 08:26] VITALS: O2SAT 98
[2025-01-02 08:27] VITALS: BP 112/81; PULSE 102; RESP 20; O2SAT 98
--- NOTE | 2025-01-02 09:22 | ED_ITS ---
HPI - General Adult General Chief complaint: Shortness of Breath/Dyspnea Stated complaint: unknown Time Seen by Provider: 01/02/25 07:39 Mode of arrival: EMS Limitations: no limitations History of Present Illness HPI narrative: 59-year-old with a history of COPD on 2 L of home oxygen here with a complains of shortness of breath. Patient states that his electricity at home was cut off yesterday and he has no oxygen supply. Patient presently has no complaints. Onset (ago): day(s) (1) Relieving factors: other (Oxygen) Exacerbating factors: none Associated symptoms: denies other symptoms Related Data Allergies Allergy/AdvReac Type Severity Reaction Status Date / Time No Known Allergies Allergy Verified 01/02/25 08:55 Review of Systems Review of Systems: All systems reviewed & are unremarkable except as noted in HPI and below Constitutional: Constitutional: Reports no additional constitutional complaints Eyes: Eyes: Reports no additional eye complaints ENT: Reports system reviewed and no additional complaints, except as documented Cardiovascular: Cardiovascular: Reports no additional cardiovascular complaints Respiratory: Respiratory: Reports as per HPI Gastrointestinal: Gastrointestinal: Reports no additional gastrointestinal complaints Musculoskeletal: Musculoskeletal: Reports no additional musculoskeletal complaints Neurologic: Reports system reviewed and no additional complaints, except as documented [facility] Past Medical History Medical History Community acquired bacterial pneumonia Malnutrition Methamphetamine use Tobacco abuse Chronic obstructive pulmonary disease Asthma Surgical History Surgical History History of tonsillectomy Family History Family History Mother Diabetes mellitus Patient's mother is in good health Cerebrovascular accident Father Patient's father is in good health Dementia Sibling Patient's sister is in good health Social History Social History Social History: The patient lives in his father's old home in [place]. He smoked up to a pack of cigarettes per day for about 40 years and is now down to a pack a week. Formally smoked marijuana. On occasion he will snort methamphetamines and lasted so several days ago ?to keep myself motivated.? He drinks 15 cans of beer a week. He designates his sister, Madison Messina, as his surrogate decision maker. He wishes to be a full code. Smoking status: Current every day smoker Alcohol intake: never Substance use: current Substance use type: methamphetamine Last use: 06/16/2024 Do You Feel Safe in your Home?: Yes Lack of Transportation: No Lack of Food: Never True Current Housing: I Have Housing Concerned About Future Housing: No Difficulty Paying Gas/Electric Bills: No Difficulty Paying for Meds: No Currently Unemployed: No Education: Decline to Answer Difficulty w/ Childcare or Family Care: No Spiritual care concerns: No Exam Narrative: GENERAL: Well-appearing, thin and frail, and in no acute distress. HEAD: Normocephalic, atraumatic. EYES: PERRLA and EOMI. NECK: Supple. CHEST: Clear to auscultation. No respiratory distress. HEART: Regular rate and rhythm. No murmur heard. Normal peripheral pulses. ABDOMEN: Soft, nontender, nondistended, normal active bowel sounds. EXTREMITIES: Normal range of motion. No edema. SKIN: Warm, dry, no rash. NEURO: No focal deficits. Alert and oriented x3. PSYCH: Normal mood and affect. Course Course Emergency Course: Case management was consulted, she did talk to the electricity department and then restored power port patient will be discharged home patient has no further complaints he feels comfortable going back home. Vital Signs Vital signs: Vital Signs Pulse Rate 100 01/02/25 08:25 Pulse Rate 102 H 01/02/25 08:27 Respiratory Rate 20 01/02/25 08:27 Blood Pressure 112/81 01/02/25 08:27 Pulse Oximetry 98 01/02/25 08:27 Oxygen Delivery Nasal Cannula 01/02/25 08:26 Oxygen Flow Rate 2 01/02/25 08:26 Medical Decision Making Vital Signs Vital Signs: Vital Signs Pulse Rate 100 01/02/25 08:25 Pulse Rate 102 H 01/02/25 08:27 Respiratory Rate 20 01/02/25 08:27 Blood Pressure 112/81 01/02/25 08:27 Pulse Oximetry 98 01/02/25 08:27 Oxygen Delivery Nasal Cannula 01/02/25 08:26 Oxygen Flow Rate 2 01/02/25 08:26 Discharge Plan Discharge Clinical Impression: Chronic obstructive pulmonary disease Qualifiers: COPD type: unspecified COPD Qualified Code(s): J44.9 - Chronic obstructive pulm onary disease, unspecified Patient Disposition: Home Condition: Stable Instructions: COPD (Chronic Obstructive Pulmonary Disease) (ED) Patient Language: Congolese Prescriptions: No Action albuterol sulfate 90 mcg/actuation HFA aerosol inhaler 2 puff inhalation QID PRN (Reason: shortness of breath or wheezing) Qty: 6.7 0RF Follow-up/Referrals: Ritchie Lo MD [Physician] - UNKNOWN,DOCTOR [Primary Care Provider] - Time of Disposition: 09:29
--- NOTE | 2025-01-02 09:30 | PCCCNOTE ---
Called to the ED regarding pt. power being disconnected and him needing oxygen. Spoke with pt. he is unable to pay his power bill. He has a balance of $1350. Call placed to [facility], spoke with Rip. She was able to reconnect his services until Sunday, due to his oxygen need. Pt made aware of this and that he must call them on Sunday to set up arrangements. Rip is also having a fax sent to care coordination to fill out for medical necessity, that will need to be filled out and faxed back to them ( ). Pt's account number is [phone]. I also placed a call to [facility], left a message, awaiting return call.
[2025-01-02 09:47] VITALS: BP 107/82; PULSE 104; RESP 18; O2SAT 96
== END 2025-01-02 10:50 | disposition home or self-care (01) ==
PROVIDERS: Emergency Provider Family Medicine
DX: J44.9 Chronic obstructive pulmonary disease, unspecified (principal); Z99.81 Dependence on supplemental oxygen; Z87.01 Personal history of pneumonia (recurrent); F17.210 Nicotine dependence, cigarettes, uncomplicated
CPT/HCPCS: 99284